=== PATIENT | male | born 1960 | race Caucasian/White ===

== ENCOUNTER 2020-01-23 07:16 | Day surgery (SDC) | payer OTHER ==
[~2020-01-23 07:16] MED LIST: Lactated Ringers 1,000 ML IV SCH
[2020-01-23] MEDS ORDERED: Lidocaine 2% 5 ML SDV ONE (07:24)
[2020-01-23] MEDS ORDERED: fentaNYL 100 MCG/2 ML SDV ONE (07:25)
[2020-01-23] MEDS ORDERED: Midazolam 1 MG/ML 2 ML SDV ONE (07:25)
[2020-01-23] MEDS ORDERED: Propofol 200 MG/20 ML SDV ONE (07:25)
[2020-01-23] MEDS ORDERED: Ketamine 500 mg/10 ML MDV ONE (07:29)
--- NOTE | 2020-01-23 07:55 | PCM.PREANE ---
Preanesthetic Assessment - Anesthesia/Transfusion/Family Hx Anesthesia History: Prior Anesthesia Without Reaction Family History of Anesthesia Reaction: No Transfusion History: No Prior Transfusion(s) Intubation History: Unknown - Review of Systems General: No Symptoms Pulmonary: No Symptoms Cardiovascular: No Symptoms Gastrointestinal: No Symptoms, Other (F/H of colon cancer) Neurological: No Symptoms Other: Reports: None - Physical Assessment NPO Status Date: 01/23/20 NPO Status Time: 06:00 Vital Signs: Last Vital Signs Temp 36.9 C 01/23/20 07:34 Pulse 87 01/23/20 07:34 Resp 16 01/23/20 07:34 BP 130/89 01/23/20 07:34 Pulse Ox 99 01/23/20 07:34 Height: 5 ft 9 in Weight: 79.379 kg ASA Class: 3 Mental Status: Alert & Oriented x3 Airway Class: Mallampati = 2 Dentition: Reports: Partial (upper and lower left and right), Broken Tooth/ Teeth (multiple) Thyro-Mental Finger Breadths: 3 Mouth Opening Finger Breadths: 3 ROM/Head Extension: Full Lungs: Clear to Auscultation, Normal Respiratory Effort Cardiovascular: Regular Rate, Regular Rhythm - Allergies Allergies/Adverse Reactions: Allergies Allergy/AdvReac Type Severity Reaction Status Date / Time No Known Allergies Allergy Verified 01/19/20 15:15 - Blood Blood Available: No - Anesthesia Plan Pre-Op Medication Ordered: None - Acknowledgements Anesthesia Type Planned: MAC Pt an Appropriate Candidate for the Planned Anesthesia: Yes Alternatives and Risks of Anesthesia Discussed w Pt/Guardian: Yes Pt/Guardian Understands and Agrees with Anesthesia Plan: Yes PreAnesthesia Questionnaire HEENT History: Reports: Other (See Below) Other HEENT History: wears glasses, has upper partial removable denture- he doesn't usually wear it Musculoskeletal History: Reports: Fracture Other Musculoskeletal History: hx of fx arm- casted Neurological History: Reports: Other (See Below) Other Neuro History: 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, ataxia - walks with peterson Psychiatric History: Reports: Anxiety, Other (See Below) Other Psychiatric History: some cognitive impairment Endocrine/Metabolic History: Reports: Hypothyroidism - Infectious Disease History Infectious Disease History: Reports: Chicken Pox - Past Surgical History Head Surgeries/Procedures: Reports: None HEENT Surgical History: Reports: Eye Surgery Other HEENT Surgeries/Procedures: Eye surgery x5 as a child- last was at age 12 - SUBSTANCE USE Smoking Status *Q: Current Every Day Smoker (> 1ppd) Tobacco Use Within Last Twelve Months: Cigarettes Recreational Drug Use History: No - HOME MEDS Home Medications: Home Meds Carbidopa/Levodopa [Carbidopa-Levodopa 25-100 Tab] 2 tab PO BID 01/19/20 [ History] Cholecalciferol (Vitamin D3) [Vitamin D3] 400 unit PO DAILY 01/19/20 [History] Cyanocobalamin (Vitamin B12) [Vitamin B12] 1,000 mcg PO DAILY 01/19/20 [History] Levothyroxine Sodium [Synthroid] 25 mcg PO DAILY 01/19/20 [History] - CURRENT (IN HOUSE) MEDS Current Meds: Current Medications Lactated Ringer's (Ringers, Lactated) 1,000 mls @ 125 mls/hr IV ASDIRECTED DEANNA Discontinued Medications Fentanyl (Sublimaze) Confirm Administered Dose 100 mcg .ROUTE .STK-MED ONE Stop: 01/23/20 07:26 Ketamine HCl (Ketalar) Confirm Administered Dose 500 mg .ROUTE .STK-MED ONE Stop: 01/23/20 07:30 Lidocaine (Xylocaine-Mpf 2%) Confirm Administered Dose 5 ml .ROUTE .STK-MED ONE Stop: 01/23/20 07:25 Midazolam HCl (Versed 1 Mg/Ml) Confirm Administered Dose 2 mg .ROUTE .STK-MED ONE Stop: 01/23/20 07:26 Propofol (Diprivan 20 Ml) Confirm Administered Dose 200 mg .ROUTE .STK-MED ONE Stop: 01/23/20 07:26
--- NOTE | 2020-01-23 09:38 | PCM.OPNOTE ---
- General Post-Op/Procedure Note Date of Surgery/Procedure: 01/23/20 Operative Procedure(s): egd w bx. colonoscopy Findings: see [id number] Pre Op Diagnosis: change in bowel habit and gerd Post-Op Diagnosis: Same Anesthesia Technique: Moderate Sedation Primary Surgeon: Khoa Rodriguez Pathology: sent Complications: None Condition: Good
--- NOTE | 2020-01-23 10:01 | PCM.POSTAN ---
POST ANESTHESIA ASSESSMENT - MENTAL STATUS Mental Status: Alert, Oriented - VITAL SIGNS Vital Signs: Last Vital Signs Temp 36.9 C 01/23/20 07:34 Pulse 67 01/23/20 09:52 Resp 20 01/23/20 09:52 BP 99/63 01/23/20 09:52 Pulse Ox 99 01/23/20 09:52 - RESPIRATORY Respiratory Status: Respiratory Rate WNL, Airway Patent, O2 Saturation Stable - CARDIOVASCULAR CV Status: Pulse Rate WNL, Blood Pressure Stable - GASTROINTESTINAL GI Status: No Symptoms - PAIN Pain Score: 0 - POST OP HYDRATION Hydration Status: Adequate & Stable - OBSERVATIONS Free Text/Narrative:: No anesthesia problems
[2020-01-23 10:16] VITALS: BP 121/71; PULSE 73
--- NOTE | 2020-01-23 10:27 | PCM48HPAN ---
Post Anesthesia Note - EVALUATION WITHIN 48HRS OF ANESTHETIC Vital Signs in Normal Range: Yes Patient Participated in Evaluation: Yes Respiratory Function Stable: Yes Airway Patent: Yes Cardiovascular Function Stable: Yes Hydration Status Stable: Yes Pain Control Satisfactory: Yes Nausea and Vomiting Control Satisfactory: Yes Mental Status Recovered: Yes Vital Signs: Last Vital Signs Temp 36.7 C 01/23/20 10:03 Pulse 73 01/23/20 10:15 Resp 14 01/23/20 10:15 BP 121/71 01/23/20 10:15 Pulse Ox 100 01/23/20 10:15 - COMMENTS/OBSERVATIONS Free Text/Narrative:: no anesthesia problems
--- NOTE | 2020-01-23 12:14 | OR ---
SURGEON: Khoa Rodriguez MD DATE OF PROCEDURE: 01/23/2020 PREOPERATIVE DIAGNOSES: Positive family history and change in bowel habit. POSTOPERATIVE DIAGNOSES: Positive family history and change in bowel habit. PROCEDURE PERFORMED: Esophagogastroduodenoscopy with biopsy and colonoscopy. DESCRIPTION OF PROCEDURE: EGD: The patient was taken to the endoscopy room, and with the SPANISH SPEAKING NANNY, Diprivan was administered. A well-lubricated EGD scope was gently inserted through the oropharynx, down the esophagus, passing through the gastroesophageal junction, into the stomach. The mucosa was examined upon the passage. Any etiology will be noted. Once in the stomach, we continued to advance to the distal antrum, passed through the pylorus into the second portion of the duodenum. Again, the mucosa was examined for any abnormality and etiology. The scope was then retrieved back to the stomach and then retroflexed to look at the fundus of the stomach. If a biopsy was indicated, we will biopsy the antrum, body, and gastroesophageal junction. The air will be sucked out while the scope is retrieved to reduce the patient's discomfort. The patient tolerated the procedure well. There were no intraoperative complications. Dr. Rodriguez was present through the whole procedure. Prior to surgery, a time-out had been called, the patient identified, procedure identified and antibiotic administered. The patient was taken to the endoscopy room. A time out was called, patient identified, and procedure identified. Diprivan was then administrated. Patient went from awake to sleep, hearing doctor talking or door closing is normal. Perineum inspection and digital examination were then performed. A well- lubricated colonoscope was gently inserted through the rectum, advanced past the rectosigmoid junction, the descending colon, splenic flexure, transverse colon, hepatic flexure, ascending colon, arrived to the cecum. Cecum was identified as dictated in the finding. Then the scope was carefully withdrawn while attention was paid to the mucosal surface for any abnormality. Air will be sucked out during the scope withdrawal. At the rectum, retroflexed to examine any rectal diseases, fistula or hemorrhoids. Patient tolerated procedure well. There were no intraoperative complications, and Dr. Rodriguez was present throughout the whole procedure. FINDINGS: EGD findings: 1. The patient is easily sedated with SPANISH SPEAKING NANNY and Diprivan, the patient is soundly snoring. 2. Oropharynx and proximal esophagus are free of disease and distal esophagus at GE junction has only very minimal salmon-colored change, suggests minimal acid reflux. Stomach rugae are normal in appearance. There is some bile in the stomach, and antrum looks fine. The exit to the duodenum is narrowed, but the wall is smooth. Grossly looks normal, does not seem to show any disease, but the camera cannot go through it, so the pylorus exit to the duodenum is probably smaller than 10 mm. We can only see the duodenum at a distance. Retroflexed look at the fundus of stomach, there is no hiatal hernia. Biopsy done at antrum, body, GE junction at 40 and sucked out the gas while scope pulling out. During the whole study, there is bile in the stomach, but no ulcer, blood, or food particle. Colonoscopy findings: 1. The patient easily sedated with SPANISH SPEAKING NANNY and Diprivan, the patient is soundly snoring. 2. Bowel prep is average to above average, lots of bubble, but there is no semi-formed stool. Liquid stool, very little. We had to use Mylicon to get rid of the bubble. Colon rather straightforward. Cecum indicated by ileocecal fold, one-to-one indentation, appendiceal orifice. ScopeGuide is pointing south. Light emittance is not observed. Mucosa examined upon scope pulling out. The patient has mild diverticulosis, very mild, about 5 to 10 of them on the left colon. No signs or symptoms of diverticulitis. No polyp, mass, growth, inflammation, stricture, ulceration, AV malformation, bleeding, none of those. The patient has mild external hemorrhoids, mild internal hemorrhoids. The patient would benefit from repeat colonoscopy 3 to 5 years from today because of family history. ROLAN / ROJELIO /[id number]
== END 2020-01-23 10:42 | disposition home or self-care (01) ==
LOC: MW.SDS 07:16
PROVIDERS: ATTEND Surgery
DX: K57.30 Diverticulosis of large intestine without perforation or abscess without bleeding (principal); K29.50 Unspecified chronic gastritis without bleeding; B96.81 Helicobacter pylori [H. pylori] as the cause of diseases classified elsewhere; K64.4 Residual hemorrhoidal skin tags; K64.8 Other hemorrhoids; E03.9 Hypothyroidism, unspecified; Z80.0 Family history of malignant neoplasm of digestive organs
CPT/HCPCS: 43239; 45378; J2001; J2250; J2704; J3010; J7120; 00813; 88305; 88312

== ENCOUNTER 2021-05-10 12:06 | Inpatient (IN) | payer OTHER ==
--- NOTE | 2021-05-10 12:25 | PCM.EKG ---
#1 Interpretation EKG Date: 05/10/21 Time: 12:17 Rhythm: NSR Rate (Beats/Min): 76 ST-T: Depressed
--- NOTE | 2021-05-10 12:33 | EDM.PDOC ---
ED HPI GENERAL MEDICAL PROBLEM - General Chief Complaint: Head Injury Stated Complaint: FOUND ON FLOOR UNRESPONSIVE Time Seen by Provider: 05/10/21 12:20 Source of Information: Reports: EMS Notes Reviewed History Limitations: Reports: Altered Mental Status - History of Present Illness INITIAL COMMENTS - FREE TEXT/NARRATIVE: 61-year-old male who lives at home alone but does have someone bring her medications daily. The caregiver who presents with medication found patient on the ground. He was last seen 24 hours ago unknown how long patient was down. Patient normally at baseline is able to speak and talk but here he said his name is not following commands. Patient has abrasion to the right elbow. He does not move his lower extremities or withdraw the pain or squeeze hands on command. Pupils are unreactive as well. The patient does withdrawal at times. Will try to obtain further information and obtain imaging for patient. - Related Data Allergies Allergy/AdvReac Type Severity Reaction Status Date / Time No Known Allergies Allergy Verified 01/19/20 15:15 Home Meds: Home Meds Cholecalciferol (Vitamin D3) [Vitamin D3] 400 unit PO DAILY 01/19/20 [History] Cyanocobalamin (Vitamin B12) [Vitamin B12] 1,000 mcg PO DAILY 01/19/20 [History] Levothyroxine Sodium [Synthroid] 50 mcg PO DAILY 01/19/20 [History] Past Medical History HEENT History: Reports: Other (See Below) Other HEENT History: wears glasses, has upper partial removable denture- he doesn't usually wear it Musculoskeletal History: Reports: Fracture Other Musculoskeletal History: hx of fx arm- casted Neurological History: Reports: Other (See Below) Other Neuro History: 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, ataxia- walks with peterson Psychiatric History: Reports: Anxiety, Other (See Below) Other Psychiatric History: some cognitive impairment Endocrine/Metabolic History: Reports: Hypothyroidism - Infectious Disease History Infectious Disease History: Reports: Chicken Pox - Past Surgical History Head Surgeries/Procedures: Reports: None HEENT Surgical History: Reports: Eye Surgery Other HEENT Surgeries/Procedures: Eye surgery x5 as a child- last was at age 12 Social & Family History - Family History Family Medical History: No Pertinent Family History ED ROS GENERAL - Review of Systems Review Of Systems: Unable To Obtain Reason Not Obtained: AMS - Physical Exam Exam: See Below Exam Limited By: Altered Mental Status General Appearance: Obtunded Eye Exam: Bilateral Eye: EOMI Head Exam: Atraumatic, Normocephalic Respiratory/Chest: No Respiratory Distress, Lungs Clear, Normal Breath Sounds Cardiovascular: Normal Peripheral Pulses, Regular Rate, Rhythm GI/Abdominal: Normal Bowel Sounds, Soft, Non-Tender Neuro Exam (Abbreviated): Inattentive, Slow to Respond, Other (Not moving extremities withdraw to pain) Course - Vital Signs Last Recorded V/S: Last Vital Signs Temp 97.0 F 05/10/21 18:27 Pulse 90 05/10/21 18:27 Resp 18 05/10/21 18:27 BP 175/98 H 05/10/21 18:27 Pulse Ox 96 05/10/21 18:27 - Orders/Labs/Meds Orders: Active Orders 24 hr Category Date Time Status CELL COUNT,CSF [BF] Stat Lab 05/10/21 14:46 Ordered CSF CULTURE [MREF] Stat Lab 05/10/21 14:46 Ordered GLUCOSE,CSF [BF] Stat Lab 05/10/21 14:46 Ordered LACTATE SEPSIS W/ REFLEX [CHEM] Stat Lab 05/10/21 12:29 Ordered PROTEIN,CSF [BF] Stat Lab 05/10/21 14:46 Ordered Medication Orders Albuterol/Ipratropium (Albuterol/Ipratropium 3.0-0.5 Mg/3 Ml Neb Soln) 3 ml NEB Q4HRRT PRN PRN Reason: Shortness Of Breath/wheezing Heparin Sodium (Porcine) (Heparin Sodium 5,000 Units/Ml Vial) 5,000 units SUBCUT Q8H DEANNA Ampicillin Sodium 2 gm/ Sodium (Chloride) 100 mls @ 200 mls/hr IV Q6H DEANNA Vancomycin HCl 2 gm/ Premix 400 mls @ 200 mls/hr IV STAT ONE Stop: 05/10/21 19:07 Lactated Ringer's (Ringers, Lactated) 1,000 mls @ 125 mls/hr IV ASDIRECTED DEANNA Pantoprazole Sodium 40 mg/ (Sodium Chloride) 10 mls @ 200 mls/hr IV DAILY DEANNA Ondansetron HCl (Ondansetron 4 Mg/2 Ml Sdv) 4 mg IVPUSH Q4H PRN PRN Reason: Nausea/Vomiting Labs: Laboratory Tests 07/06/21 07/06/21 07/06/21 Range/Units 12:25 12:25 12:25 WBC 17.08 H (4.0-11.0) K/uL RBC 4.47 L (4.50-5.90) M/uL Hgb 14.3 (13.0-17.0) g/dL Hct 41.7 (38.0-50.0) % MCV 93.3 (80.0-98.0) fL MCH 32.0 (27.0-32.0) pg MCHC 34.3 (31.0-37.0) g/dL RDW Std Deviation 44.1 (28.0-62.0) fl RDW Coeff of Ananda 13 (11.0-15.0) % Plt Count 221 (150-400) K/uL MPV 11.70 (7.40-12.00) fL Neut % (Auto) 87.5 H (48.0-80.0) % Lymph % (Auto) 5.4 L (16.0-40.0) % [place] % (Auto) 7.0 (0.0-15.0) % Eos % (Auto) 0.0 (0.0-7.0) % Baso % (Auto) 0.1 (0.0-1.5) % Neut # (Auto) 15.0 H (1.4-5.7) K/uL Lymph # (Auto) 0.9 (0.6-2.4) K/uL [place] # (Auto) 1.2 H (0.0-0.8) K/uL Eos # (Auto) 0.0 (0.0-0.7) K/uL Baso # (Auto) 0.0 (0.0-0.1) K/uL Nucleated RBC % 0.0 /100WBC Nucleated RBCs # 0 K/uL INR 0.95 Sodium 138 (136-148) mmol/L Potassium 5.3 H (3.5-5.1) mmol/L Chloride 102 (98-107) mmol/L Carbon Dioxide 29.8 (21.0-32.0) mmol/L BUN 11 (7.0-18.0) mg/dL Creatinine 1.2 (0.8-1.3) mg/dL Est Cr Clr Drug Dosing 63.83 mL/min Estimated GFR (MDRD) > 60.0 ml/min Glucose 127 H (74-106) mg/dL Calcium 9.1 (8.5-10.1) mg/dL Phosphorus 5.1 H (2.6-4.7) mg/dL Magnesium 2.2 (1.8-2.4) mg/dL Total Bilirubin 2.0 H (0.2-1.0) mg/dL AST 81 H (15-37) IU/L ALT 39 (14-63) IU/L Alkaline Phosphatase 100 (46-116) U/L Ammonia (19-54) ug/dL Creatine Kinase 2697 H (26-308) U/L Total Protein 7.5 (6.4-8.2) g/dL Albumin 3.7 (3.4-5.0) g/dL Globulin 3.8 (2.6-4.0) g/dL Albumin/Globulin Ratio 1.0 (0.9-1.6) Urine Color Urine Appearance Urine pH (5.0-8.0) Ur Specific [place] (1.001-1.035) Urine Protein (NEGATIVE) mg/dL Urine Glucose (UA) (NEGATIVE) mg/dL Urine Ketones (NEGATIVE) mg/dL Urine Occult Blood (NEGATIVE) Urine Nitrite (NEGATIVE) Urine Bilirubin (NEGATIVE) Urine Urobilinogen (<2.0) EU/dL Ur Leukocyte Esterase (NEGATIVE) Urine RBC (0-2/HPF) Urine WBC (0-5/HPF) Ur Epithelial Cells (NONE-FEW) Amorphous Sediment (NEGATIVE) Urine Bacteria (NEGATIVE) Urine Mucus (NONE-MOD) Urine Opiates Screen (NEGATIVE) Ur Oxycodone Screen (NEGATIVE) Urine Methadone Screen (NEGATIVE) Ur Barbiturates Screen (NEGATIVE) Ur Phencyclidine Scrn (NEGATIVE) Ur Amphetamine Screen (NEGATIVE) U Methamphetamines Scrn (NEGATIVE) U Benzodiazepines Scrn (NEGATIVE) U Cocaine Metab Screen (NEGATIVE) U Marijuana (THC) Screen (NEGATIVE) Ethyl Alcohol < 3.0 mg/dL SARS-CoV-2 RNA (MICHELLE) (NEGATIVE) 05/10/21 05/10/21 05/10/21 Range/Units 14:18 14:49 14:49 WBC (4.0-11.0) K/uL RBC (4.50-5.90) M/uL Hgb (13.0-17.0) g/dL Hct (38.0-50.0) % MCV (80.0-98.0) fL MCH (27.0-32.0) pg MCHC (31.0-37.0) g/dL RDW Std Deviation (28.0-62.0) fl RDW Coeff of Ananda (11.0-15.0) % Plt Count (150-400) K/uL MPV (7.40-12.00) fL Neut % (Auto) (48.0-80.0) % Lymph % (Auto) (16.0-40.0) % [place] % (Auto) (0.0-15.0) % Eos % (Auto) (0.0-7.0) % Baso % (Auto) (0.0-1.5) % Neut # (Auto) (1.4-5.7) K/uL Lymph # (Auto) (0.6-2.4) K/uL [place] # (Auto) (0.0-0.8) K/uL Eos # (Auto) (0.0-0.7) K/uL Baso # (Auto) (0.0-0.1) K/uL Nucleated RBC % /100WBC Nucleated RBCs # K/uL INR Sodium (136-148) mmol/L Potassium (3.5-5.1) mmol/L Chloride (98-107) mmol/L Carbon Dioxide (21.0-32.0) mmol/L BUN (7.0-18.0) mg/dL Creatinine (0.8-1.3) mg/dL Est Cr Clr Drug Dosing mL/min Estimated GFR (MDRD) ml/min Glucose (74-106) mg/dL Calcium (8.5-10.1) mg/dL Phosphorus (2.6-4.7) mg/dL Magnesium (1.8-2.4) mg/dL Total Bilirubin (0.2-1.0) mg/dL AST (15-37) IU/L ALT (14-63) IU/L Alkaline Phosphatase (46-116) U/L Ammonia 24 (19-54) ug/dL Creatine Kinase (26-308) U/L Total Protein (6.4-8.2) g/dL Albumin (3.4-5.0) g/dL Globulin (2.6-4.0) g/dL Albumin/Globulin Ratio (0.9-1.6) Urine Color YELLOW Urine Appearance CLEAR Urine pH 6.0 (5.0-8.0) Ur Specific [place] >= 1.030 (1.001-1.035) Urine Protein NEGATIVE (NEGATIVE) mg/dL Urine Glucose (UA) NEGATIVE (NEGATIVE) mg/dL Urine Ketones NEGATIVE (NEGATIVE) mg/dL Urine Occult Blood TRACE-INTACT H (NEGATIVE) Urine Nitrite NEGATIVE (NEGATIVE) Urine Bilirubin NEGATIVE (NEGATIVE) Urine Urobilinogen 0.2 (<2.0) EU/dL Ur Leukocyte Esterase NEGATIVE (NEGATIVE) Urine RBC 0-1 (0-2/HPF) Urine WBC 0-1 (0-5/HPF) Ur Epithelial Cells RARE (NONE-FEW) Amorphous Sediment MODERATE (NEGATIVE) Urine Bacteria RARE (NEGATIVE) Urine Mucus RARE (NONE-MOD) Urine Opiates Screen NEGATIVE (NEGATIVE) Ur Oxycodone Screen NEGATIVE (NEGATIVE) Urine Methadone Screen NEGATIVE (NEGATIVE) Ur Barbiturates Screen NEGATIVE (NEGATIVE) Ur Phencyclidine Scrn NEGATIVE (NEGATIVE) Ur Amphetamine Screen NEGATIVE (NEGATIVE) U Methamphetamines Scrn NEGATIVE (NEGATIVE) U Benzodiazepines Scrn NEGATIVE (NEGATIVE) U Cocaine Metab Screen NEGATIVE (NEGATIVE) U Marijuana (THC) Screen NEGATIVE (NEGATIVE) Ethyl Alcohol mg/dL SARS-CoV-2 RNA (MICHELLE) (NEGATIVE) 05/10/21 05/10/21 Range/Units 14:52 16:32 WBC (4.0-11.0) K/uL RBC (4.50-5.90) M/uL Hgb (13.0-17.0) g/dL Hct (38.0-50.0) % MCV (80.0-98.0) fL MCH (27.0-32.0) pg MCHC (31.0-37.0) g/dL RDW Std Deviation (28.0-62.0) fl RDW Coeff of Ananda (11.0-15.0) % Plt Count (150-400) K/uL MPV (7.40-12.00) fL Neut % (Auto) (48.0-80.0) % Lymph % (Auto) (16.0-40.0) % [place] % (Auto) (0.0-15.0) % Eos % (Auto) (0.0-7.0) % Baso % (Auto) (0.0-1.5) % Neut # (Auto) (1.4-5.7) K/uL Lymph # (Auto) (0.6-2.4) K/uL [place] # (Auto) (0.0-0.8) K/uL Eos # (Auto) (0.0-0.7) K/uL Baso # (Auto) (0.0-0.1) K/uL Nucleated RBC % /100WBC Nucleated RBCs # K/uL INR Sodium (136-148) mmol/L Potassium (3.5-5.1) mmol/L Chloride (98-107) mmol/L Carbon Dioxide (21.0-32.0) mmol/L BUN (7.0-18.0) mg/dL Creatinine (0.8-1.3) mg/dL Est Cr Clr Drug Dosing mL/min Estimated GFR (MDRD) ml/min Glucose (74-106) mg/dL Calcium (8.5-10.1) mg/dL Phosphorus (2.6-4.7) mg/dL Magnesium (1.8-2.4) mg/dL Total Bilirubin (0.2-1.0) mg/dL AST (15-37) IU/L ALT (14-63) IU/L Alkaline Phosphatase (46-116) U/L Ammonia (19-54) ug/dL Creatine Kinase (26-308) U/L Total Protein (6.4-8.2) g/dL Albumin (3.4-5.0) g/dL Globulin (2.6-4.0) g/dL Albumin/Globulin Ratio (0.9-1.6) Urine Color YELLOW Urine Appearance SLT CLOUDY Urine pH 6.0 (5.0-8.0) Ur Specific [place] >= 1.030 (1.001-1.035) Urine Protein NEGATIVE (NEGATIVE) mg/dL Urine Glucose (UA) NEGATIVE (NEGATIVE) mg/dL Urine Ketones NEGATIVE (NEGATIVE) mg/dL Urine Occult Blood MODERATE H (NEGATIVE) Urine Nitrite NEGATIVE (NEGATIVE) Urine Bilirubin NEGATIVE (NEGATIVE) Urine Urobilinogen 1.0 (<2.0) EU/dL Ur Leukocyte Esterase NEGATIVE (NEGATIVE) Urine RBC 0-1 (0-2/HPF) Urine WBC 0-1 (0-5/HPF) Ur Epithelial Cells RARE (NONE-FEW) Amorphous Sediment MODERATE (NEGATIVE) Urine Bacteria FEW (NEGATIVE) Urine Mucus RARE (NONE-MOD) Urine Opiates Screen (NEGATIVE) Ur Oxycodone Screen (NEGATIVE) Urine Methadone Screen (NEGATIVE) Ur Barbiturates Screen (NEGATIVE) Ur Phencyclidine Scrn (NEGATIVE) Ur Amphetamine Screen (NEGATIVE) U Methamphetamines Scrn (NEGATIVE) U Benzodiazepines Scrn (NEGATIVE) U Cocaine Metab Screen (NEGATIVE) U Marijuana (THC) Screen (NEGATIVE) Ethyl Alcohol mg/dL SARS-CoV-2 RNA (MICHELLE) NEGATIVE (NEGATIVE) Meds: Medications Generic Name Dose Route Start Last Admin Trade Name Freq PRN Reason Stop Dose Admin Albuterol/Ipratropium 3 ml 05/10/21 18:24 Albuterol/Ipratropium 3.0-0.5 Mg/3 Ml Neb Soln NEB Q4HRRT PRN Shortness Of Breath/wheezing Heparin Sodium (Porcine) 5,000 units 05/10/21 18:30 Heparin Sodium 5,000 Units/Ml Vial SUBCUT Q8H [facility] Ampicillin Sodium 2 gm/ Sodium 100 mls @ 200 mls/hr 05/10/21 17:15 Chloride IV Q6H DEANNA Vancomycin HCl 2 gm/ Premix 400 mls @ 200 mls/hr 05/10/21 17:08 IV 05/10/21 19:07 STAT ONE Lactated Ringer's 1,000 mls @ 125 mls/hr 05/10/21 18:30 Ringers, Lactated IV ASDIRECTED [facility] Pantoprazole Sodium 40 mg/ 10 mls @ 200 mls/hr 05/10/21 18:45 Sodium Chloride IV DAILY DEANNA Ondansetron HCl 4 mg 05/10/21 18:24 Ondansetron 4 Mg/2 Ml Sdv IVPUSH Q4H PRN Nausea/Vomiting Discontinued Medications Generic Name Dose Route Start Last Admin Trade Name Freq PRN Reason Stop Dose Admin Ceftriaxone Sodium 2 gm 05/10/21 17:08 05/10/21 17:53 Ceftriaxone 1 Gm Vial IVPUSH 05/10/21 17:09 2 gm ONETIME ONE Administration Sodium Chloride 1,000 mls @ 999 mls/hr 05/10/21 13:51 05/10/21 14:33 Normal Saline IV 05/10/21 14:51 999 mls/hr .BOLUS ONE Administration Sodium Chloride 1,000 mls @ 999 mls/hr 05/10/21 17:14 05/10/21 17:49 Normal Saline IV 05/10/21 18:14 999 mls/hr .BOLUS ONE Administration Lidocaine HCl 5 ml 05/10/21 14:50 05/10/21 17:45 Lidocaine 1% 5 Ml Sdv INJECT 05/10/21 14:51 Not Given ONETIME ONE Pantoprazole Sodium 40 mg 05/10/21 18:30 Pantoprazole 40 Mg Vial IV DAILY DEANNA Pantoprazole Sodium 40 mg 05/10/21 18:30 Pantoprazole 40 Mg Vial IVPUSH DAILY DEANNA Departure - Departure Time of Disposition: 14:00 Disposition: Admitted As Inpatient 65 Condition: Good Clinical Impression: Altered mental status - Discharge Information *PRESCRIPTION DRUG MONITORING PROGRAM REVIEWED*: Not Applicable *COPY OF PRESCRIPTION DRUG MONITORING REPORT IN PATIENT FRANKIE: Not Applicable Sepsis Event Note (ED) - Focused Exam Vital Signs: Vital Signs Temp Pulse Resp BP Pulse Ox 05/10/21 16:19 152/85 H 05/10/21 15:49 149/95 H 05/10/21 15:19 164/86 H 05/10/21 14:49 166/91 H 96 05/10/21 13:49 155/93 H 05/10/21 13:18 72 144/85 H 94 L 05/10/21 12:29 77 145/87 H 95 05/10/21 12:19 77 138/61 97 05/10/21 12:17 98.8 F 76 18 138/61 96 - My Orders Last 24 Hours: My Active Orders 05/10/21 12:29 LACTATE SEPSIS W/ REFLEX [CHEM] Stat 05/10/21 14:46 CELL COUNT,CSF [BF] Stat CSF CULTURE [MREF] Stat GLUCOSE,CSF [BF] Stat PROTEIN,CSF [BF] Stat - Assessment/Plan Last 24 Hours: My Active Orders 05/10/21 12:29 LACTATE SEPSIS W/ REFLEX [CHEM] Stat 05/10/21 14:46 CELL COUNT,CSF [BF] Stat CSF CULTURE [MREF] Stat GLUCOSE,CSF [BF] Stat PROTEIN,CSF [BF] Stat Plan: Patient is a 61-year-old male presents today for being found on the ground for unknown time. Will obtain a CT scan of his spine abdomen pelvis and reassess. ED LUMBAR PUNCTURE - Lumbar Puncture Indication: Mental Status Change Consent Obtained: Guardian Position: Left Prep: Sterile Drapes, Betadine Local Anesthesia - Lidocaine (Xylocaine): 1% Plain Local Anesthetic Volume: 3cc Vertebral Interspace: L4/L5 Spinal Needle With Stylet: 20ga, 3.5 Inch (Adult) Number of Attempts: Other: (Successful) Complications: Yes Complication Description: We were unsuccessful in obtaining the lumbar puncture
[2021-05-10 13:10] LABS: BLOOD UREA NITROGEN,BUN 11 mg/dL (7.0-18.0); CARBON DIOXIDE,CO2 29.8 mmol/L (21.0-32.0); CHLORIDE,CL 102 mmol/L (98-107); GLUCOSE RANDOM 127 mg/dL (74-106); POTASSIUM,K 5.3 mmol/L (3.5-5.1); SODIUM,NA 138 mmol/L (136-148)
--- NOTE | 2021-05-10 13:38 | CT ---
INDICATION: Unwitnessed fall TECHNIQUE: CT abdomen and pelvis without contrast. COMPARISON: None FINDINGS: Lower chest: Unremarkable. Liver: Unremarkable. Spleen: Unremarkable. Pancreas: Unremarkable. Gallbladder and bile ducts: Unremarkable. Adrenal glands: Unremarkable. Kidneys: Nonobstructive left nephrolithiasis. GI tract: Unremarkable. Appendix is normal. Vascular structures: Unremarkable. Lymph nodes: Unremarkable. Miscellaneous: Small fat containing bilateral inguinal hernias. No free air or significant free fluid. Pelvic Organs: Unremarkable. Bones: Old T12 and L3 fractures. IMPRESSION: No evidence for acute injury within the abdomen or pelvis. Nonobstructive left nephrolithiasis. Old T12 and L3 fractures. Please note that all CT scans at this facility use dose modulation, iterative reconstruction, and/or weight-based dosing when appropriate to reduce radiation dose to as low as reasonably achievable. Dictated by Jerrica Olvera MD @ 05/10/2021 1:37:[address] Jerrica Olvera @ May 10 2021 1:37PM
--- NOTE | 2021-05-10 13:42 | CT ---
INDICATION: Unwitnessed fall. TECHNIQUE: CT head without contrast. COMPARISON: None. FINDINGS: CSF spaces: Within normal limits for age. Brain parenchyma and extra-axial spaces: Moderate bifrontal atrophy. The gibbons-white differentiation is normal. No sign of mass, hemorrhage, or midline shift. No extra-axial fluid collection. Skull base and calvarium: The visualized paranasal sinuses and mastoid air cells demonstrate no acute or significant findings. The visualized orbits are grossly unremarkable. No skull fractures. IMPRESSION: No sign of acute injury. Bifrontal atrophy is present. Please note that all CT scans at this facility use dose modulation, iterative reconstruction, and/or weight-based dosing when appropriate to reduce radiation dose to as low as reasonably achievable. Dictated by Juan Simmons MD @ 05/10/2021 1:40:[address] Juan Simmons @ May 10 2021 1:40PM
--- NOTE | 2021-05-10 13:42 | CT ---
INDICATION: Unwitnessed fall TECHNIQUE: CT chest without contrast. COMPARISON: None FINDINGS: Cardiovascular structures: Heart size is normal. Coronary artery calcifications. Dilatation of the ascending aorta measuring 4.1 cm. Mediastinum and walker: No sign of mass or adenopathy. Lungs: Clear. Pleura and pericardium: No effusions. Chest wall and axilla: No mass or adenopathy. Upper abdomen: Unremarkable. Bones: Old T12 fracture. Old mid sternal body fracture. IMPRESSION: No acute intrathoracic abnormality. Dilatation of the ascending aorta measuring 4.1 cm. Coronary artery calcifications. Old T12 and sternal body fractures. Please note that all CT scans at this facility use dose modulation, iterative reconstruction, and/or weight-based dosing when appropriate to reduce radiation dose to as low as reasonably achievable. Dictated by Jerrica Olvera MD @ 05/10/2021 1:41:[address] Jerrica Olvera @ May 10 2021 1:41PM
--- NOTE | 2021-05-10 13:45 | CT ---
INDICATION: Unwitnessed fall. TECHNIQUE: CT cervical spine without contrast. COMPARISON: None FINDINGS: Vertebrae: Alignment is normal. There are no fractures or suspicious bony lesions. Discs and facet joints: There are degenerative disc changes most severe at C5-6 and C6-7. There are multilevel degenerative changes in the facets. Extraspinal findings: Paraspinous soft tissues are unremarkable. IMPRESSION: 1. No sign of acute injury. 2. Multilevel degenerative spondylosis. Please note that all CT scans at this facility use dose modulation, iterative reconstruction, and/or weight-based dosing when appropriate to reduce radiation dose to as low as reasonably achievable. Dictated by Juan Simmons MD @ 05/10/2021 1:43:[address] Juan Simmons @ May 10 2021 1:43PM
[2021-05-10] MEDS ORDERED: Sodium Chloride 0.9% 1,000 ML IV ONE ×2 (13:51→17:14)
[2021-05-10] MEDS ORDERED: VANCOmycin 2 GM/400 ML 2 GM in Premix Bag 1 BAG IV ONE (17:08)
[2021-05-10] MEDS ORDERED: cefTRIAXone 1 GM Vial IVPUSH ONE (17:08)
[2021-05-10] MEDS ORDERED: Ampicillin 2 GM in Sodium Chloride 0.9% 100 ML IV SCH (17:15)
[2021-05-10] MEDS ORDERED: Albuterol/Ipratropium 3.0-0.5 MG/3 ML Neb Soln NEB PRN (18:24)
[2021-05-10] MEDS ORDERED: Ondansetron 4 MG/2 ML SDV IVPUSH PRN (18:24)
[2021-05-10] MEDS ORDERED: Pantoprazole 40 MG Vial IVPUSH SCH (18:30)
[2021-05-10] MEDS ORDERED: Pantoprazole 40 MG Vial IV SCH (18:30)
--- NOTE | 2021-05-10 19:01 | PCM.HP.2 ---
H&P History of Present Illness - General Date of Service: 05/10/21 Admit Problem/Dx: Admission Diagnosis/Problem Admission Diagnosis/Problem Mental deterioration - History of Present Illness Initial Comments - Free Text/Narative: Patient is a 61-year-old male with past medical history of ataxia, cognitive impairment, dysarthria, hypothyroidism, neurodegenerative disorder who was at home alone, was found down on the ground by his municipal maintenance worker. Its unsure for how long patient was on the ground. The municipal maintenance worker who came to visit the patient with his daily medication found the patient laying down on the floor. He had abrasion to the right elbow. Patient was brought to the ER by EMS services. In the ER patient was found to be altered, unable to follow most commands, he was moving all his extremities and was withdrawing to pain and follow some commands such as squeezing hands. As per ER, the palliative care specialist told the ER physician that at baseline patient is able to talk normally and follows commands. The work-up revealed that patient had leukocytosis but no definite source of infection was recognized upon CT scan of the chest and abdomen. CT scan of the head was done which showed no acute stroke but did show bifrontal atrophy. Given clinical picture of altered mental status and leukocytosis, meningitis was considered, lumbar puncture was performed which unfortunately was not successful. Anesthesiologist was attempted to call to perform lumbar puncture, per ER physician they deferred the procedure to morning. Patient was empirically started on IV antibiotics and admitted to the hospital for further management. Review of patient's chart shows that patient has been following up with neurology on outpatient basis unsure what the working diagnosis is right now as I am unable to access the records, MRI of the brain was done in 2019, which did show generalized atrophy and small vessel ischemic changes, multiple sclerosis was not excluded. - Related Data Allergies/Adverse Reactions: Allergies Allergy/AdvReac Type Severity Reaction Status Date / Time No Known Allergies Allergy Verified 05/10/21 19:01 Home Medications: Home Meds Cholecalciferol (Vitamin D3) [Vitamin D3] 400 unit PO DAILY 01/19/20 [History] Cyanocobalamin (Vitamin B12) [Vitamin B12] 1,000 mcg PO DAILY 01/19/20 [History] Levothyroxine Sodium [Synthroid] 50 mcg PO DAILY 01/19/20 [History] Past Medical History HEENT History: Reports: Other (See Below) Other HEENT History: wears glasses, has upper partial removable denture- he doesn't usually wear it Cardiovascular History: Reports: None Respiratory History: Reports: None Gastrointestinal History: Reports: None Genitourinary History: Reports: None Musculoskeletal History: Reports: Fracture Other Musculoskeletal History: hx of fx arm- casted Neurological History: Reports: Other (See Below) Other Neuro History: 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, ataxia- walks with peterson Psychiatric History: Reports: Anxiety, Other (See Below) Other Psychiatric History: some cognitive impairment Endocrine/Metabolic History: Reports: Hypothyroidism Hematologic History: Reports: B12 Deficiency Immunologic History: Reports: None Oncologic (Cancer) History: Reports: None Dermatologic History: Reports: None - Infectious Disease History Infectious Disease History: Reports: Chicken Pox, Measles - Past Surgical History Head Surgeries/Procedures: Reports: None HEENT Surgical History: Reports: Eye Surgery Other HEENT Surgeries/Procedures: Eye surgery x5 as a child- last was at age 12 Cardiovascular Surgical History: Reports: None Respiratory Surgical History: Reports: None GI Surgical History: Reports: None Male Surgical History: Reports: None Endocrine Surgical History: Reports: None Neurological Surgical History: Reports: None Musculoskeletal Surgical History: Reports: None Oncologic Surgical History: Reports: None Dermatological Surgical History: Reports: None Social & Family History - Family History Family Medical History: No Pertinent Family History HEENT: Reports: Cataract Cardiac: Reports: Hypertension Respiratory: Reports: COPD GI: Reports: Hiatal Hernia : Reports: None OBGYN: Reports: None Musculoskeletal: Reports: Arthritis Neurological: Reports: None Psychiatric: Reports: None Endocrine/Metabolic: Reports: None Hematologic: Reports: None Immunologic: Reports: None Dermatologic: Reports: None Oncologic: Reports: Colon - Tobacco Use Tobacco Use Status *Q: Former Tobacco User Years of Tobacco use: 40 Packs/Tins Daily: 2 Used Tobacco, but Quit: Yes Month/Year Tobacco Last Used: approx 4 months ago Second Hand Smoke Exposure: Yes - Caffeine Use Caffeine Use: Reports: Soda - Recreational Drug Use Recreational Drug Use: No H&P Review of Systems - Review of Systems: Review Of Systems: Unable To Obtain Reason Not Obtained: Patient is sedated Exam - Exam Exam: See Below - Vital Signs Vital Signs: Last Vital Signs Temp 36.1 C 05/10/21 18:27 Pulse 90 05/10/21 18:27 Resp 18 05/10/21 18:27 BP 175/98 H 05/10/21 18:27 Pulse Ox 96 05/10/21 18:27 Weight: 77.467 kg - Exam General: Sedated. No: Alert, Oriented, Cooperative Neck: Supple, Trachea Midline Lungs: Clear to Auscultation, Normal Respiratory Effort Cardiovascular: Regular Rate, Regular Rhythm, Normal S1, Normal S2 GI/Abdominal Exam: Normal Bowel Sounds, Soft, Non-Tender Extremities: Normal Inspection, Non-Tender. No: Pedal Edema - Patient Data Lab Results Last 24 hrs: Laboratory Results - last 24 hr 05/10/21 05/10/21 05/10/21 Range/Units 12:25 12:25 12:25 WBC 17.08 H (4.0-11.0) K/uL RBC 4.47 L (4.50-5.90) M/uL Hgb 14.3 (13.0-17.0) g/dL Hct 41.7 (38.0-50.0) % MCV 93.3 (80.0-98.0) fL MCH 32.0 (27.0-32.0) pg MCHC 34.3 (31.0-37.0) g/dL RDW Std Deviation 44.1 (28.0-62.0) fl RDW Coeff of Ananda 13 (11.0-15.0) % Plt Count 221 (150-400) K/uL MPV 11.70 (7.40-12.00) fL Neut % (Auto) 87.5 H (48.0-80.0) % Lymph % (Auto) 5.4 L (16.0-40.0) % Foster % (Auto) 7.0 (0.0-15.0) % Eos % (Auto) 0.0 (0.0-7.0) % Baso % (Auto) 0.1 (0.0-1.5) % Neut # (Auto) 15.0 H (1.4-5.7) K/uL Lymph # (Auto) 0.9 (0.6-2.4) K/uL Foster # (Auto) 1.2 H (0.0-0.8) K/uL Eos # (Auto) 0.0 (0.0-0.7) K/uL Baso # (Auto) 0.0 (0.0-0.1) K/uL Nucleated RBC % 0.0 /100WBC Nucleated RBCs # 0 K/uL INR 0.95 Sodium 138 (136-148) mmol/L Potassium 5.3 H (3.5-5.1) mmol/L Chloride 102 (98-107) mmol/L Carbon Dioxide 29.8 (21.0-32.0) mmol/L BUN 11 (7.0-18.0) mg/dL Creatinine 1.2 (0.8-1.3) mg/dL Est Cr Clr Drug Dosing 63.83 mL/min Estimated GFR (MDRD) > 60.0 ml/min Glucose 127 H (74-106) mg/dL Calcium 9.1 (8.5-10.1) mg/dL Phosphorus 5.1 H (2.6-4.7) mg/dL Magnesium 2.2 (1.8-2.4) mg/dL Total Bilirubin 2.0 H (0.2-1.0) mg/dL AST 81 H (15-37) IU/L ALT 39 (14-63) IU/L Alkaline Phosphatase 100 (46-116) U/L Ammonia (19-54) ug/dL Creatine Kinase 2697 H (26-308) U/L Total Protein 7.5 (6.4-8.2) g/dL Albumin 3.7 (3.4-5.0) g/dL Globulin 3.8 (2.6-4.0) g/dL Albumin/Globulin Ratio 1.0 (0.9-1.6) Urine Color Urine Appearance Urine pH (5.0-8.0) Ur Specific Kerby (1.001-1.035) Urine Protein (NEGATIVE) mg/dL Urine Glucose (UA) (NEGATIVE) mg/dL Urine Ketones (NEGATIVE) mg/dL Urine Occult Blood (NEGATIVE) Urine Nitrite (NEGATIVE) Urine Bilirubin (NEGATIVE) Urine Urobilinogen (<2.0) EU/dL Ur Leukocyte Esterase (NEGATIVE) Urine RBC (0-2/HPF) Urine WBC (0-5/HPF) Ur Epithelial Cells (NONE-FEW) Amorphous Sediment (NEGATIVE) Urine Bacteria (NEGATIVE) Urine Mucus (NONE-MOD) Urine Opiates Screen (NEGATIVE) Ur Oxycodone Screen (NEGATIVE) Urine Methadone Screen (NEGATIVE) Ur Barbiturates Screen (NEGATIVE) Ur Phencyclidine Scrn (NEGATIVE) Ur Amphetamine Screen (NEGATIVE) U Methamphetamines Scrn (NEGATIVE) U Benzodiazepines Scrn (NEGATIVE) U Cocaine Metab Screen (NEGATIVE) U Marijuana (THC) Screen (NEGATIVE) Ethyl Alcohol < 3.0 mg/dL SARS-CoV-2 RNA (MICHELLE) (NEGATIVE) 05/10/21 05/10/21 05/10/21 Range/Units 14:18 14:49 14:49 WBC (4.0-11.0) K/uL RBC (4.50-5.90) M/uL Hgb (13.0-17.0) g/dL Hct (38.0-50.0) % MCV (80.0-98.0) fL MCH (27.0-32.0) pg MCHC (31.0-37.0) g/dL RDW Std Deviation (28.0-62.0) fl RDW Coeff of Ananda (11.0-15.0) % Plt Count (150-400) K/uL MPV (7.40-12.00) fL Neut % (Auto) (48.0-80.0) % Lymph % (Auto) (16.0-40.0) % Foster % (Auto) (0.0-15.0) % Eos % (Auto) (0.0-7.0) % Baso % (Auto) (0.0-1.5) % Neut # (Auto) (1.4-5.7) K/uL Lymph # (Auto) (0.6-2.4) K/uL Foster # (Auto) (0.0-0.8) K/uL Eos # (Auto) (0.0-0.7) K/uL Baso # (Auto) (0.0-0.1) K/uL Nucleated RBC % /100WBC Nucleated RBCs # K/uL INR Sodium (136-148) mmol/L Potassium (3.5-5.1) mmol/L Chloride (98-107) mmol/L Carbon Dioxide (21.0-32.0) mmol/L BUN (7.0-18.0) mg/dL Creatinine (0.8-1.3) mg/dL Est Cr Clr Drug Dosing mL/min Estimated GFR (MDRD) ml/min Glucose (74-106) mg/dL Calcium (8.5-10.1) mg/dL Phosphorus (2.6-4.7) mg/dL Magnesium (1.8-2.4) mg/dL Total Bilirubin (0.2-1.0) mg/dL AST (15-37) IU/L ALT (14-63) IU/L Alkaline Phosphatase (46-116) U/L Ammonia 24 (19-54) ug/dL Creatine Kinase (26-308) U/L Total Protein (6.4-8.2) g/dL Albumin (3.4-5.0) g/dL Globulin (2.6-4.0) g/dL Albumin/Globulin Ratio (0.9-1.6) Urine Color YELLOW Urine Appearance CLEAR Urine pH 6.0 (5.0-8.0) Ur Specific Kerby >= 1.030 (1.001-1.035) Urine Protein NEGATIVE (NEGATIVE) mg/dL Urine Glucose (UA) NEGATIVE (NEGATIVE) mg/dL Urine Ketones NEGATIVE (NEGATIVE) mg/dL Urine Occult Blood TRACE-INTACT H (NEGATIVE) Urine Nitrite NEGATIVE (NEGATIVE) Urine Bilirubin NEGATIVE (NEGATIVE) Urine Urobilinogen 0.2 (<2.0) EU/dL Ur Leukocyte Esterase NEGATIVE (NEGATIVE) Urine RBC 0-1 (0-2/HPF) Urine WBC 0-1 (0-5/HPF) Ur Epithelial Cells RARE (NONE-FEW) Amorphous Sediment MODERATE (NEGATIVE) Urine Bacteria RARE (NEGATIVE) Urine Mucus RARE (NONE-MOD) Urine Opiates Screen NEGATIVE (NEGATIVE) Ur Oxycodone Screen NEGATIVE (NEGATIVE) Urine Methadone Screen NEGATIVE (NEGATIVE) Ur Barbiturates Screen NEGATIVE (NEGATIVE) Ur Phencyclidine Scrn NEGATIVE (NEGATIVE) Ur Amphetamine Screen NEGATIVE (NEGATIVE) U Methamphetamines Scrn NEGATIVE (NEGATIVE) U Benzodiazepines Scrn NEGATIVE (NEGATIVE) U Cocaine Metab Screen NEGATIVE (NEGATIVE) U Marijuana (THC) Screen NEGATIVE (NEGATIVE) Ethyl Alcohol mg/dL SARS-CoV-2 RNA (MICHELLE) (NEGATIVE) 05/10/21 05/10/21 05/10/21 Range/Units 14:52 16:32 17:25 WBC (4.0-11.0) K/uL RBC (4.50-5.90) M/uL Hgb (13.0-17.0) g/dL Hct (38.0-50.0) % MCV (80.0-98.0) fL MCH (27.0-32.0) pg MCHC (31.0-37.0) g/dL RDW Std Deviation (28.0-62.0) fl RDW Coeff of Ananda (11.0-15.0) % Plt Count (150-400) K/uL MPV (7.40-12.00) fL Neut % (Auto) (48.0-80.0) % Lymph % (Auto) (16.0-40.0) % Foster % (Auto) (0.0-15.0) % Eos % (Auto) (0.0-7.0) % Baso % (Auto) (0.0-1.5) % Neut # (Auto) (1.4-5.7) K/uL Lymph # (Auto) (0.6-2.4) K/uL Foster # (Auto) (0.0-0.8) K/uL Eos # (Auto) (0.0-0.7) K/uL Baso # (Auto) (0.0-0.1) K/uL Nucleated RBC % /100WBC Nucleated RBCs # K/uL INR Sodium (136-148) mmol/L Potassium (3.5-5.1) mmol/L Chloride (98-107) mmol/L Carbon Dioxide (21.0-32.0) mmol/L BUN (7.0-18.0) mg/dL Creatinine (0.8-1.3) mg/dL Est Cr Clr Drug Dosing mL/min Estimated GFR (MDRD) ml/min Glucose (74-106) mg/dL Calcium (8.5-10.1) mg/dL Phosphorus (2.6-4.7) mg/dL Magnesium (1.8-2.4) mg/dL Total Bilirubin (0.2-1.0) mg/dL AST (15-37) IU/L ALT (14-63) IU/L Alkaline Phosphatase (46-116) U/L Ammonia (19-54) ug/dL Creatine Kinase 3792 H (26-308) U/L Total Protein (6.4-8.2) g/dL Albumin (3.4-5.0) g/dL Globulin (2.6-4.0) g/dL Albumin/Globulin Ratio (0.9-1.6) Urine Color YELLOW Urine Appearance SLT CLOUDY Urine pH 6.0 (5.0-8.0) Ur Specific Kerby >= 1.030 (1.001-1.035) Urine Protein NEGATIVE (NEGATIVE) mg/dL Urine Glucose (UA) NEGATIVE (NEGATIVE) mg/dL Urine Ketones NEGATIVE (NEGATIVE) mg/dL Urine Occult Blood MODERATE H (NEGATIVE) Urine Nitrite NEGATIVE (NEGATIVE) Urine Bilirubin NEGATIVE (NEGATIVE) Urine Urobilinogen 1.0 (<2.0) EU/dL Ur Leukocyte Esterase NEGATIVE (NEGATIVE) Urine RBC 0-1 (0-2/HPF) Urine WBC 0-1 (0-5/HPF) Ur Epithelial Cells RARE (NONE-FEW) Amorphous Sediment MODERATE (NEGATIVE) Urine Bacteria FEW (NEGATIVE) Urine Mucus RARE (NONE-MOD) Urine Opiates Screen (NEGATIVE) Ur Oxycodone Screen (NEGATIVE) Urine Methadone Screen (NEGATIVE) Ur Barbiturates Screen (NEGATIVE) Ur Phencyclidine Scrn (NEGATIVE) Ur Amphetamine Screen (NEGATIVE) U Methamphetamines Scrn (NEGATIVE) U Benzodiazepines Scrn (NEGATIVE) U Cocaine Metab Screen (NEGATIVE) U Marijuana (THC) Screen (NEGATIVE) Ethyl Alcohol mg/dL SARS-CoV-2 RNA (MICHELLE) NEGATIVE (NEGATIVE) Result Diagrams: 05/10/21 12:25 05/10/21 12:25 Sepsis Event Note - Evaluation Sepsis Screening Result: No Definite Risk - Focused Exam Vital Signs: Vital Signs Temp Pulse Resp BP Pulse Ox 05/10/21 18:27 36.1 C 90 18 175/98 H 96 05/10/21 17:58 87 18 172/101 H 97 05/10/21 17:49 88 162/114 H 94 L 05/10/21 17:20 159/72 H 05/10/21 16:49 143/80 H 05/10/21 16:19 152/85 H 05/10/21 15:49 149/95 H 05/10/21 15:19 164/86 H 05/10/21 14:49 166/91 H 96 05/10/21 13:49 155/93 H 05/10/21 13:18 72 144/85 H 94 L 05/10/21 12:29 77 145/87 H 95 05/10/21 12:19 77 138/61 97 05/10/21 12:17 37.1 C 76 18 138/61 96 - Problem List (1) Ataxia SNOMED Code(s): 01133466 ICD Code: R27.0 - ATAXIA, UNSPECIFIED Status: Acute Current Visit: Yes (2) Cognitive impairment SNOMED Code(s): 384185023 ICD Code: R41.89 - OTH SYMPTOMS AND SIGNS W COGNITIVE FUNCTIONS AND AWARENESS Status: Acute Current Visit: Yes (3) Dysarthria SNOMED Code(s): 4837659 ICD Code: R47.1 - DYSARTHRIA AND ANARTHRIA Status: Acute Current Visit: Yes (4) Hypothyroidism SNOMED Code(s): 92879502 ICD Code: E03.9 - HYPOTHYROIDISM, UNSPECIFIED Status: Acute Current Vi sit: Yes (5) Neurodegenerative disorder SNOMED Code(s): 621606208 ICD Code: G31.9 - DEGENERATIVE DISEASE OF NERVOUS SYSTEM, UNSPECIFIED Status: Acute Current Visit: Yes (6) Altered mental status SNOMED Code(s): 953922409 ICD Code: R41.82 - ALTERED MENTAL STATUS, UNSPECIFIED Status: Acute Current Visit: Yes Problem List Initiated/Reviewed/Updated: Yes Orders Last 24hrs: Active Orders 24 hr Category Date Time Status Patient Status [ADT] Routine ADT 05/10/21 16:35 Active Ambulate [RC] ASDIRECTED Care 05/10/21 18:24 Active Antiembolic Devices [RC] PER UNIT ROUTINE Care 05/10/21 18:25 Active Blood Glucose Check, Bedside [RC] TIDAC Care 05/10/21 18:24 Active Oxygen Therapy [RC] PRN Care 05/10/21 18:24 Active RT Aerosol Therapy [RC] ASDIRECTED Care 05/10/21 18:26 Active VTE/DVT Education [RC] PER UNIT ROUTINE Care 05/10/21 18:24 Active Vital Signs [RC] Q4H Care 05/10/21 18:24 Active Clear Liquid Diet [DIET] Diet 05/10/21 Dinner Active CBC WITH AUTO DIFF [HEME] AM Lab 05/11/21 05:11 Ordered CELL COUNT,CSF [BF] Stat Lab 05/10/21 14:46 Ordered CMP [COMPREHENSIVE METABOLIC PN,CMP] [CHEM] AM Lab 05/11/21 05:11 Ordered CSF CULTURE [MREF] Stat Lab 05/10/21 14:46 Ordered GLUCOSE,CSF [BF] Stat Lab 05/10/21 14:46 Ordered LACTATE SEPSIS W/ REFLEX [CHEM] Stat Lab 05/10/21 12:29 Ordered LACTATE SEPSIS W/ REFLEX [CHEM] Stat Lab 05/10/21 18:58 Ordered MAGNESIUM [CHEM] AM Lab 05/11/21 05:11 Ordered PHOSPHORUS [CHEM] AM Lab 05/11/21 05:11 Ordered PROTEIN,CSF [BF] Stat Lab 05/10/21 14:46 Ordered VANCOMYCIN TROUGH [CHEM] Timed Lab 05/12/21 16:30 Ordered Albuterol/Ipratropium [DuoNeb 3.0-0.5 MG/3 ML] Med 05/10/21 18:24 Active 3 ml NEB Q4HRRT PRN Ampicillin 2 gm Med 05/10/21 19:00 Active Sodium Chloride 0.9% [Normal Saline] 100 ml IV Q4H Heparin Sodium Med 05/10/21 18:30 Active 5,000 units SUBCUT Q8H Lactated Ringers [Ringers, Lactated] 1,000 ml Med 05/10/21 18:30 Active IV ASDIRECTED Ondansetron [Zofran] Med 05/10/21 18:24 Active 4 mg IVPUSH Q4H PRN Pantoprazole [ProTONIX IV] 40 mg Med 05/10/21 18:45 Active Sodium Chloride 0.9% [Normal Saline] 10 ml IV DAILY Pharmacy to Dose - Vancomycin Med 05/10/21 18:45 Pending 1 dose .XX ASDIRECTED VANCOmycin 2 GM/400 ML 2 gm Med 05/10/21 17:08 Active Premix Bag 1 bag IV STAT Vancomycin 1.25 gm Med 05/11/21 05:00 Active Sodium Chloride 0.9% [Normal Saline (AdvBag)] 250 ml IV Q12H cefTRIAXone [Rocephin] 2 gm Med 05/11/21 09:00 Active Sodium Chloride 0.9% [Normal Saline] 50 ml IV Q12H dexAMETHasone [Decadron] Med 05/10/21 19:00 Active 6 mg IVPUSH DAILY Sequential Compression Device [OM.PC] Per Unit Routine Oth 05/10/21 18:24 Ordered Resuscitation Status Routine Resus Stat 05/10/21 18:24 Ordered Medication Orders Albuterol/Ipratropium (Albuterol/Ipratropium 3.0-0.5 Mg/3 Ml Neb Soln) 3 ml NEB Q4HRRT PRN PRN Reason: Shortness Of Breath/wheezing Dexamethasone (Dexamethasone 4 Mg/Ml Sdv) 6 mg IVPUSH DAILY DEANNA Heparin Sodium (Porcine) (Heparin Sodium 5,000 Units/Ml Vial) 5,000 units SUBCUT Q8H DEANNA Vancomycin HCl 2 gm/ Premix 400 mls @ 200 mls/hr IV STAT ONE Stop: 05/10/21 19:07 Lactated Ringer's (Ringers, Lactated) 1,000 mls @ 150 mls/hr IV ASDIRECTED [facility] Pantoprazole Sodium 40 mg/ (Sodium Chloride) 10 mls @ 200 mls/hr IV DAILY DEANNA Ampicillin Sodium 2 gm/ Sodium (Chloride) 100 mls @ 200 mls/hr IV Q4H DEANNA Ceftriaxone Sodium 2 gm/ (Sodium Chloride) 50 mls @ 100 mls/hr IV Q12H DEANNA Vancomycin HCl 1.25 gm/ Sodium (Chloride) 250 mls @ 166.667 mls/hr IV Q12H DEANNA Ondansetron HCl (Ondansetron 4 Mg/2 Ml Sdv) 4 mg IVPUSH Q4H PRN PRN Reason: Nausea/Vomiting Vancomycin HCl (Pharmacy To Dose - Vancomycin) 1 dose .XX ASDIRECTED [facility] Assessment/Plan Comment:: 61-year-old male admitted for altered mental status and leukocytosis UA negative, no evident source of infection resulting in metabolic encephalopathy Currently being empirically treated for possible bacterial meningitis, although suspicion is low, lumbar puncture was unsuccessful CT scan of the head noted, possible component of dementia complicated by delirium We will also try to touch base with Dr. Gilman who has been following the patient on outpatient basis for further recommendation Patient was highly agitated on the floor and had to be chemically sedated with Haldol and Ativan, although would avoid using chemical sedation but it was necessary for patient and staff safety. Continue supportive care Lovenox for DVT prophylaxis Monitor and replete electrolytes as necessary Continue home meds as appropriate once med rec is done
[2021-05-10] MEDS: Ampicillin 2 GM in Sodium Chloride 0.9% 100 ML IV SCH ×2 (19:03→22:56)
[2021-05-10] MEDS: Lactated Ringers 1,000 ML IV SCH (19:23)
[2021-05-10] MEDS: Pantoprazole 40 MG in Sodium Chloride 0.9% 10 ML IV SCH (19:27)
[2021-05-10] MEDS: Heparin Sodium 5,000 Units/ML Vial SUBCUT SCH (19:29)
[2021-05-10] MEDS: Dexamethasone 4 MG/ML SDV IVPUSH SCH (19:34)
[2021-05-10] MEDS ORDERED: LORazepam 2 MG/ML SDV IVPUSH ONE (20:00)
[2021-05-10] MEDS ORDERED: Haloperidol Lactate 5 MG/ML SDV IM ONE (20:01)
[2021-05-10] MEDS ORDERED: diphenhydrAMINE 50 MG/ML SDV IVPUSH ONE (20:02)
[2021-05-10] MEDS ORDERED: Lactated Ringers 1,000 ML IV ONE (23:05)
[2021-05-11] MEDS: Lactated Ringers 1,000 ML IV SCH ×3 (01:38→22:15)
[2021-05-11] MEDS: Heparin Sodium 5,000 Units/ML Vial SUBCUT SCH ×2 (01:46→11:56)
[2021-05-11] MEDS: Ampicillin 2 GM in Sodium Chloride 0.9% 100 ML IV SCH ×6 (03:24→23:55)
[2021-05-11 06:35] LABS: BLOOD UREA NITROGEN,BUN 14 mg/dL (7.0-18.0); CARBON DIOXIDE,CO2 24.8 mmol/L (21.0-32.0); CHLORIDE,CL 102 mmol/L (98-107); GLUCOSE RANDOM 150 mg/dL (74-106); POTASSIUM,K 4.2 mmol/L (3.5-5.1); SODIUM,NA 135 mmol/L (136-148)
[2021-05-11] MEDS: Levothyroxine 25 MCG Tab PO SCH (08:14)
[2021-05-11] MEDS ORDERED: cefTRIAXone 2 GM in Sodium Chloride 0.9% 50 ML IV SCH ×4 (09:00)
[2021-05-11] MEDS: Pantoprazole 40 MG in Sodium Chloride 0.9% 10 ML IV SCH (10:12)
[2021-05-11] MEDS: Cyanocobalamin (Vitamin B12) 500 MCG Tab PO SCH (10:16)
[2021-05-11] MEDS ORDERED: Magnesium Sulfate/Water 2 GM in Premix Bag 1 BAG IV ONE (10:16)
[2021-05-11] MEDS: Dexamethasone 4 MG/ML SDV IVPUSH SCH (10:19)
[2021-05-11] MEDS: cefTRIAXone 2 GM/50 ML BAG IV SCH ×2 (10:27→22:15)
--- NOTE | 2021-05-11 11:55 | PCM.PR.LP ---
Lumbar Puncture - Lumbar Puncture Lumbar Puncture Indication: Reports: CSF analysis, suspected meningitis Position: left lateral Location/vertebral space: L3-L4 Prep: Reports: Sterile Drapes, Chlorhexidine Local anesthesia: Reports: lidocaine 1 % Needle size: 18g Fluid: Reports: clear Volume in cc's: 5 Opening pressure [facility] Complications: No Dressing: Reports: adhesive dressing Lumbar puncture comment:: Patient tolerated procedure well.
--- NOTE | 2021-05-11 12:54 | PCM.HP.2 ---
H&P History of Present Illness - General Date of Service: 05/11/21 Admit Problem/Dx: Admission Diagnosis/Problem Admission Diagnosis/Problem Mental deterioration - History of Present Illness Initial Comments - Free Text/Narative: Patient seen at bedside, awake able to have some basic conversation with me, not at his baseline yet per family at bedside. I spoke to the family in detail, and I also went through the records from patient's neurologist, patient has been diagnosed with progressive supranuclear palsy as well as dementia. Patient has had a cognitive decline in last 1 year. Patient sister is the power of assistant district attorney and she is considering placement at some point of time depending upon the clinical course of the patient during this hospitalization. - Related Data Allergies/Adverse Reactions: Allergies Allergy/AdvReac Type Severity Reaction Status Date / Time No Known Allergies Allergy Verified 05/10/21 19:01 Home Medications: Home Meds Cholecalciferol (Vitamin D3) [Vitamin D3] 400 unit PO DAILY 01/19/20 [History] Cyanocobalamin (Vitamin B12) [Vitamin B12] 1,000 mcg PO DAILY 01/19/20 [History] Levothyroxine Sodium [Synthroid] 50 mcg PO DAILY 01/19/20 [History] Past Medical History HEENT History: Reports: Other (See Below) Other HEENT History: wears glasses, has upper partial removable denture- he doesn't usually wear it Cardiovascular History: Reports: None Respiratory History: Reports: None Gastrointestinal History: Reports: None Genitourinary History: Reports: None Musculoskeletal History: Reports: Fracture Other Musculoskeletal History: hx of fx arm- casted Neurological History: Reports: Other (See Below) Other Neuro History: 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, ataxia- walks with peterson Psychiatric History: Reports: Anxiety, Other (See Below) Other Psychiatric History: some cognitive impairment Endocrine/Metabolic History: Reports: Hypothyroidism Hematologic History: Reports: B12 Deficiency Immunologic History: Reports: None Oncologic (Cancer) History: Reports: None Dermatologic History: Reports: None - Infectious Disease History Infectious Disease History: Reports: Chicken Pox, Measles - Past Surgical History Head Surgeries/Procedures: Reports: None HEENT Surgical History: Reports: Eye Surgery Other HEENT Surgeries/Procedures: Eye surgery x5 as a child- last was at age 12 Cardiovascular Surgical History: Reports: None Respiratory Surgical History: Reports: None GI Surgical History: Reports: None Male Surgical History: Reports: None Endocrine Surgical History: Reports: None Neurological Surgical History: Reports: None Musculoskeletal Surgical History: Reports: None Oncologic Surgical History: Reports: None Dermatological Surgical History: Reports: None Social & Family History - Family History Family Medical History: No Pertinent Family History HEENT: Reports: Cataract Cardiac: Reports: Hypertension Respiratory: Reports: COPD GI: Reports: Hiatal Hernia : Reports: None OBGYN: Reports: None Musculoskeletal: Reports: Arthritis Neurological: Reports: None Psychiatric: Reports: None Endocrine/Metabolic: Reports: None Hematologic: Reports: None Immunologic: Reports: None Dermatologic: Reports: None Oncologic: Reports: Colon - Tobacco Use Tobacco Use Status *Q: Former Tobacco User Years of Tobacco use: 40 Packs/Tins Daily: 2 Used Tobacco, but Quit: Yes Month/Year Tobacco Last Used: approx 4 months ago Second Hand Smoke Exposure: Yes - Caffeine Use Caffeine Use: Reports: Soda - Recreational Drug Use Recreational Drug Use: No H&P Review of Systems - Review of Systems: Review Of Systems: See Below General: Denies: Fever, Chills, Malaise Pulmonary: Denies: Shortness of Breath, Wheezing Cardiovascular: Denies: Chest Pain, Palpitations Gastrointestinal: Denies: Abdominal Pain, Anorexia, Black Stool Genitourinary: Denies: Dysuria, Frequency, Burning Musculoskeletal: Denies: Neck Pain, Shoulder Pain Skin: Denies: Cyanosis, Jaundice, Mottled Psychiatric: Reports: Confusion, Mood Lability. Denies: Depression, Anxiety, Hallucinations, Hallucinations (Auditory), Hallucinations (Visual) Neurological: Denies: Confusion, Dizziness, Headache Exam - Exam Exam: See Below - Vital Signs Vital Signs: Last Vital Signs Temp 37.4 C 05/11/21 12:00 Pulse 82 05/11/21 12:00 Resp 16 05/11/21 12:00 BP 171/75 H 05/11/21 12:00 Pulse Ox 97 05/11/21 12:00 Weight: 77.467 kg - Exam General: Cooperative, Lethargic. No: Alert, Oriented Neck: Supple, Trachea Midline Lungs: Clear to Auscultation, Normal Respiratory Effort Cardiovascular: Regular Rate, Regular Rhythm, Normal S1, Normal S2 Extremities: Normal Inspection, Normal Range of Motion Skin: Warm, Intact Neurological: Strength Equal Bilateral, Sensation Intact. No: Normal Gait, Normal Speech, Focal Deficit Neuro Extensive - Mental Status: Opens Eyes to Commands, Slow Response to Commands, Withdraws to Pain. No: Alert, Oriented x3, Normal Cognition - Patient Data Lab Results Last 24 hrs: Laboratory Results - last 24 hr 05/10/21 05/10/21 05/10/21 Range/Units 12:25 12:25 12:25 WBC (4.0-11.0) K/uL RBC (4.50-5.90) M/uL Hgb (13.0-17.0) g/dL Hct (38.0-50.0) % MCV (80.0-98.0) fL MCH (27.0-32.0) pg MCHC (31.0-37.0) g/dL RDW Std Deviation (28.0-62.0) fl RDW Coeff of Ananda (11.0-15.0) % Plt Count (150-400) K/uL MPV (7.40-12.00) fL Neut % (Auto) (48.0-80.0) % Lymph % (Auto) (16.0-40.0) % Dillon % (Auto) (0.0-15.0) % Eos % (Auto) (0.0-7.0) % Baso % (Auto) (0.0-1.5) % Neut # (Auto) (1.4-5.7) K/uL Lymph # (Auto) (0.6-2.4) K/uL Dillon # (Auto) (0.0-0.8) K/uL Eos # (Auto) (0.0-0.7) K/uL Baso # (Auto) (0.0-0.1) K/uL Nucleated RBC % /100WBC Nucleated RBCs # K/uL INR 0.95 Sodium 138 (136-148) mmol/L Potassium 5.3 H (3.5-5.1) mmol/L Chloride 102 (98-107) mmol/L Carbon Dioxide 29.8 (21.0-32.0) mmol/L BUN 11 (7.0-18.0) mg/dL Creatinine 1.2 (0.8-1.3) mg/dL Est Cr Clr Drug Dosing 63.83 mL/min Estimated GFR (MDRD) > 60.0 ml/min Glucose 127 H (74-106) mg/dL POC Glucose (70-99) mg/dL Lactic Acid (0.4-2.0) mmol/L Calcium 9.1 (8.5-10.1) mg/dL Phosphorus 5.1 H (2.6-4.7) mg/dL Magnesium 2.2 (1.8-2.4) mg/dL Total Bilirubin 2.0 H (0.2-1.0) mg/dL AST 81 H (15-37) IU/L ALT 39 (14-63) IU/L Alkaline Phosphatase 100 (46-116) U/L Ammonia (19-54) ug/dL Creatine Kinase 2697 H (26-308) U/L Total Protein 7.5 (6.4-8.2) g/dL Albumin 3.7 (3.4-5.0) g/dL Globulin 3.8 (2.6-4.0) g/dL Albumin/Globulin Ratio 1.0 (0.9-1.6) TSH 3rd Generation 1.20 (0.36-3.74) uIU/mL Urine Color Urine Appearance Urine pH (5.0-8.0) Ur Specific Hallock (1.001-1.035) Urine Protein (NEGATIVE) mg/dL Urine Glucose (UA) (NEGATIVE) mg/dL Urine Ketones (NEGATIVE) mg/dL Urine Occult Blood (NEGATIVE) Urine Nitrite (NEGATIVE) Urine Bilirubin (NEGATIVE) Urine Urobilinogen (<2.0) EU/dL Ur Leukocyte Esterase (NEGATIVE) Urine RBC (0-2/HPF) Urine WBC (0-5/HPF) Ur Epithelial Cells (NONE-FEW) Amorphous Sediment (NEGATIVE) Urine Bacteria (NEGATIVE) Urine Mucus (NONE-MOD) Urine Opiates Screen (NEGATIVE) Ur Oxycodone Screen (NEGATIVE) Urine Methadone Screen (NEGATIVE) Ur Barbiturates Screen (NEGATIVE) Ur Phencyclidine Scrn (NEGATIVE) Ur Amphetamine Screen (NEGATIVE) U Methamphetamines Scrn (NEGATIVE) U Benzodiazepines Scrn (NEGATIVE) U Cocaine Metab Screen (NEGATIVE) U Marijuana (THC) Screen (NEGATIVE) Ethyl Alcohol < 3.0 mg/dL SARS-CoV-2 RNA (MICHELLE) (NEGATIVE) 05/10/21 05/10/21 05/10/21 Range/Units 14:18 14:49 14:49 WBC (4.0-11.0) K/uL RBC (4.50-5.90) M/uL Hgb (13.0-17.0) g/dL Hct (38.0-50.0) % MCV (80.0-98.0) fL MCH (27.0-32.0) pg MCHC (31.0-37.0) g/dL RDW Std Deviation (28.0-62.0) fl RDW Coeff of Ananda (11.0-15.0) % Plt Count (150-400) K/uL MPV (7.40-12.00) fL Neut % (Auto) (48.0-80.0) % Lymph % (Auto) (16.0-40.0) % Dillon % (Auto) (0.0-15.0) % Eos % (Auto) (0.0-7.0) % Baso % (Auto) (0.0-1.5) % Neut # (Auto) (1.4-5.7) K/uL Lymph # (Auto) (0.6-2.4) K/uL Dillon # (Auto) (0.0-0.8) K/uL Eos # (Auto) (0.0-0.7) K/uL Baso # (Auto) (0.0-0.1) K/uL Nucleated RBC % /100WBC Nucleated RBCs # K/uL INR Sodium (136-148) mmol/L Potassium (3.5-5.1) mmol/L Chloride (98-107) mmol/L Carbon Dioxide (21.0-32.0) mmol/L BUN (7.0-18.0) mg/dL Creatinine (0.8-1.3) mg/dL Est Cr Clr Drug Dosing mL/min Estimated GFR (MDRD) ml/min Glucose (74-106) mg/dL POC Glucose (70-99) mg/dL Lactic Acid (0.4-2.0) mmol/L Calcium (8.5-10.1) mg/dL Phosphorus (2.6-4.7) mg/dL Magnesium (1.8-2.4) mg/dL Total Bilirubin (0.2-1.0) mg/dL AST (15-37) IU/L ALT (14-63) IU/L Alkaline Phosphatase (46-116) U/L Ammonia 24 (19-54) ug/dL Creatine Kinase (26-308) U/L Total Protein (6.4-8.2) g/dL Albumin (3.4-5.0) g/dL Globulin (2.6-4.0) g/dL Albumin/Globulin Ratio (0.9-1.6) TSH 3rd Generation (0.36-3.74) uIU/mL Urine Color YELLOW Urine Appearance CLEAR Urine pH 6.0 (5.0-8.0) Ur Specific Hallock >= 1.030 (1.001-1.035) Urine Protein NEGATIVE (NEGATIVE) mg/dL Urine Glucose (UA) NEGATIVE (NEGATIVE) mg/dL Urine Ketones NEGATIVE (NEGATIVE) mg/dL Urine Occult Blood TRACE-INTACT H (NEGATIVE) Urine Nitrite NEGATIVE (NEGATIVE) Urine Bilirubin NEGATIVE (NEGATIVE) Urine Urobilinogen 0.2 (<2.0) EU/dL Ur Leukocyte Esterase NEGATIVE (NEGATIVE) Urine RBC 0-1 (0-2/HPF) Urine WBC 0-1 (0-5/HPF) Ur Epithelial Cells RARE (NONE-FEW) Amorphous Sediment MODERATE (NEGATIVE) Urine Bacteria RARE (NEGATIVE) Urine Mucus RARE (NONE-MOD) Urine Opiates Screen NEGATIVE (NEGATIVE) Ur Oxycodone Screen NEGATIVE (NEGATIVE) Urine Methadone Screen NEGATIVE (NEGATIVE) Ur Barbiturates Screen NEGATIVE (NEGATIVE) Ur Phencyclidine Scrn NEGATIVE (NEGATIVE) Ur Amphetamine Screen NEGATIVE (NEGATIVE) U Methamphetamines Scrn NEGATIVE (NEGATIVE) U Benzodiazepines Scrn NEGATIVE (NEGATIVE) U Cocaine Metab Screen NEGATIVE (NEGATIVE) U Marijuana (THC) Screen NEGATIVE (NEGATIVE) Ethyl Alcohol mg/dL SARS-CoV-2 RNA (MICHELLE) (NEGATIVE) 05/10/21 05/10/21 05/10/21 Range/Units 14:52 16:32 17:25 WBC (4.0-11.0) K/uL RBC (4.50-5.90) M/uL Hgb (13.0-17.0) g/dL Hct (38.0-50.0) % MCV (80.0-98.0) fL MCH (27.0-32.0) pg MCHC (31.0-37.0) g/dL RDW Std Deviation (28.0-62.0) fl RDW Coeff of Ananda (11.0-15.0) % Plt Count (150-400) K/uL MPV (7.40-12.00) fL Neut % (Auto) (48.0-80.0) % Lymph % (Auto) (16.0-40.0) % Dillon % (Auto) (0.0-15.0) % Eos % (Auto) (0.0-7.0) % Baso % (Auto) (0.0-1.5) % Neut # (Auto) (1.4-5.7) K/uL Lymph # (Auto) (0.6-2.4) K/uL Dillon # (Auto) (0.0-0.8) K/uL Eos # (Auto) (0.0-0.7) K/uL Baso # (Auto) (0.0-0.1) K/uL Nucleated RBC % /100WBC Nucleated RBCs # K/uL INR Sodium (136-148) mmol/L Potassium (3.5-5.1) mmol/L Chloride (98-107) mmol/L Carbon Dioxide (21.0-32.0) mmol/L BUN (7.0-18.0) mg/dL Creatinine (0.8-1.3) mg/dL Est Cr Clr Drug Dosing mL/min Estimated GFR (MDRD) ml/min Glucose (74-106) mg/dL POC Glucose (70-99) mg/dL Lactic Acid (0.4-2.0) mmol/L Calcium (8.5-10.1) mg/dL Phosphorus (2.6-4.7) mg/dL Magnesium (1.8-2.4) mg/dL Total Bilirubin (0.2-1.0) mg/dL AST (15-37) IU/L ALT (14-63) IU/L Alkaline Phosphatase (46-116) U/L Ammonia (19-54) ug/dL Creatine Kinase 3792 H (26-308) U/L Total Protein (6.4-8.2) g/dL Albumin (3.4-5.0) g/dL Globulin (2.6-4.0) g/dL Albumin/Globulin Ratio (0.9-1.6) TSH 3rd Generation (0.36-3.74) uIU/mL Urine Color YELLOW Urine Appearance SLT CLOUDY Urine pH 6.0 (5.0-8.0) Ur Specific Hallock >= 1.030 (1.001-1.035) Urine Protein NEGATIVE (NEGATIVE) mg/dL Urine Glucose (UA) NEGATIVE (NEGATIVE) mg/dL Urine Ketones NEGATIVE (NEGATIVE) mg/dL Urine Occult Blood MODERATE H (NEGATIVE) Urine Nitrite NEGATIVE (NEGATIVE) Urine Bilirubin NEGATIVE (NEGATIVE) Urine Urobilinogen 1.0 (<2.0) EU/dL Ur Leukocyte Esterase NEGATIVE (NEGATIVE) Urine RBC 0-1 (0-2/HPF) Urine WBC 0-1 (0-5/HPF) Ur Epithelial Cells RARE (NONE-FEW) Amorphous Sediment MODERATE (NEGATIVE) Urine Bacteria FEW (NEGATIVE) Urine Mucus RARE (NONE-MOD) Urine Opiates Screen (NEGATIVE) Ur Oxycodone Screen (NEGATIVE) Urine Methadone Screen (NEGATIVE) Ur Barbiturates Screen (NEGATIVE) Ur Phencyclidine Scrn (NEGATIVE) Ur Amphetamine Screen (NEGATIVE) U Methamphetamines Scrn (NEGATIVE) U Benzodiazepines Scrn (NEGATIVE) U Cocaine Metab Screen (NEGATIVE) U Marijuana (THC) Screen (NEGATIVE) Ethyl Alcohol mg/dL SARS-CoV-2 RNA (MICHELLE) NEGATIVE (NEGATIVE) 05/10/21 05/11/21 05/11/21 Range/Units 19:15 00:15 01:39 WBC (4.0-11.0) K/uL RBC (4.50-5.90) M/uL Hgb (13.0-17.0) g/dL Hct (38.0-50.0) % MCV (80.0-98.0) fL MCH (27.0-32.0) pg MCHC (31.0-37.0) g/dL RDW Std Deviation (28.0-62.0) fl RDW Coeff of Ananda (11.0-15.0) % Plt Count (150-400) K/uL MPV (7.40-12.00) fL Neut % (Auto) (48.0-80.0) % Lymph % (Auto) (16.0-40.0) % Dillon % (Auto) (0.0-15.0) % Eos % (Auto) (0.0-7.0) % Baso % (Auto) (0.0-1.5) % Neut # (Auto) (1.4-5.7) K/uL Lymph # (Auto) (0.6-2.4) K/uL Dillon # (Auto) (0.0-0.8) K/uL Eos # (Auto) (0.0-0.7) K/uL Baso # (Auto) (0.0-0.1) K/uL Nucleated RBC % /100WBC Nucleated RBCs # K/uL INR Sodium (136-148) mmol/L Potassium (3.5-5.1) mmol/L Chloride (98-107) mmol/L Carbon Dioxide (21.0-32.0) mmol/L BUN (7.0-18.0) mg/dL Creatinine (0.8-1.3) mg/dL Est Cr Clr Drug Dosing mL/min Estimated GFR (MDRD) ml/min Glucose (74-106) mg/dL POC Glucose 152 H (70-99) mg/dL Lactic Acid 2.7 H* 2.1 H* (0.4-2.0) mmol/L Calcium (8.5-10.1) mg/dL Phosphorus (2.6-4.7) mg/dL Magnesium (1.8-2.4) mg/dL Total Bilirubin (0.2-1.0) mg/dL AST (15-37) IU/L ALT (14-63) IU/L Alkaline Phosphatase (46-116) U/L Ammonia (19-54) ug/dL Creatine Kinase (26-308) U/L Total Protein (6.4-8.2) g/dL Albumin (3.4-5.0) g/dL Globulin (2.6-4.0) g/dL Albumin/Globulin Ratio (0.9-1.6) TSH 3rd Generation (0.36-3.74) uIU/mL Urine Color Urine Appearance Urine pH (5.0-8.0) Ur Specific Hallock (1.001-1.035) Urine Protein (NEGATIVE) mg/dL Urine Glucose (UA) (NEGATIVE) mg/dL Urine Ketones (NEGATIVE) mg/dL Urine Occult Blood (NEGATIVE) Urine Nitrite (NEGATIVE) Urine Bilirubin (NEGATIVE) Urine Urobilinogen (<2.0) EU/dL Ur Leukocyte Esterase (NEGATIVE) Urine RBC (0-2/HPF) Urine WBC (0-5/HPF) Ur Epithelial Cells (NONE-FEW) Amorphous Sediment (NEGATIVE) Urine Bacteria (NEGATIVE) Urine Mucus (NONE-MOD) Urine Opiates Screen (NEGATIVE) Ur Oxycodone Screen (NEGATIVE) Urine Methadone Screen (NEGATIVE) Ur Barbiturates Screen (NEGATIVE) Ur Phencyclidine Scrn (NEGATIVE) Ur Amphetamine Screen (NEGATIVE) U Methamphetamines Scrn (NEGATIVE) U Benzodiazepines Scrn (NEGATIVE) U Cocaine Metab Screen (NEGATIVE) U Marijuana (THC) Screen (NEGATIVE) Ethyl Alcohol mg/dL SARS-CoV-2 RNA (MICHELLE) (NEGATIVE) 05/11/21 05/11/21 05/11/21 Range/Units 05:23 05:23 05:23 WBC 11.98 H (4.0-11.0) K/uL RBC 3.65 L (4.50-5.90) M/uL Hgb 11.7 L (13.0-17.0) g/dL Hct 33.9 L (38.0-50.0) % MCV 92.9 (80.0-98.0) fL MCH 32.1 H (27.0-32.0) pg MCHC 34.5 (31.0-37.0) g/dL RDW Std Deviation 43.1 (28.0-62.0) fl RDW Coeff of Ananda 13 (11.0-15.0) % Plt Count 176 (150-400) K/uL MPV 12.00 (7.40-12.00) fL Neut % (Auto) 91.9 H (48.0-80.0) % Lymph % (Auto) 4.3 L (16.0-40.0) % Dillon % (Auto) 3.8 (0.0-15.0) % Eos % (Auto) 0.0 (0.0-7.0) % Baso % (Auto) 0.0 (0.0-1.5) % Neut # (Auto) 11.0 H (1.4-5.7) K/uL Lymph # (Auto) 0.5 L (0.6-2.4) K/uL Dillon # (Auto) 0.5 (0.0-0.8) K/uL Eos # (Auto) 0.0 (0.0-0.7) K/uL Baso # (Auto) 0.0 (0.0-0.1) K/uL Nucleated RBC % 0.0 /100WBC Nucleated RBCs # 0 K/uL INR Sodium 135 L (136-148) mmol/L Potassium 4.2 (3.5-5.1) mmol/L Chloride 102 (98-107) mmol/L Carbon Dioxide 24.8 (21.0-32.0) mmol/L BUN 14 (7.0-18.0) mg/dL Creatinine 1.1 (0.8-1.3) mg/dL Est Cr Clr Drug Dosing 71.89 mL/min Estimated GFR (MDRD) > 60.0 ml/min Glucose 150 H (74-106) mg/dL POC Glucose (70-99) mg/dL Lactic Acid (0.4-2.0) mmol/L Calcium 7.8 L (8.5-10.1) mg/dL Phosphorus 2.6 (2.6-4.7) mg/dL Magnesium 1.7 L (1.8-2.4) mg/dL Total Bilirubin 1.6 H (0.2-1.0) mg/dL AST 73 H (15-37) IU/L ALT 33 (14-63) IU/L Alkaline Phosphatase 69 (46-116) U/L Ammonia (19-54) ug/dL Creatine Kinase 2203 H (26-308) U/L Total Protein 6.0 L (6.4-8.2) g/dL Albumin 2.9 L (3.4-5.0) g/dL Globulin 3.1 (2.6-4.0) g/dL Albumin/Globulin Ratio 0.9 (0.9-1.6) TSH 3rd Generation (0.36-3.74) uIU/mL Urine Color Urine Appearance Urine pH (5.0-8.0) Ur Specific Hallock (1.001-1.035) Urine Protein (NEGATIVE) mg/dL Urine Glucose (UA) (NEGATIVE) mg/dL Urine Ketones (NEGATIVE) mg/dL Urine Occult Blood (NEGATIVE) Urine Nitrite (NEGATIVE) Urine Bilirubin (NEGATIVE) Urine Urobilinogen (<2.0) EU/dL Ur Leukocyte Esterase (NEGATIVE) Urine RBC (0-2/HPF) Urine WBC (0-5/HPF) Ur Epithelial Cells (NONE-FEW) Amorphous Sediment (NEGATIVE) Urine Bacteria (NEGATIVE) Urine Mucus (NONE-MOD) Urine Opiates Screen (NEGATIVE) Ur Oxycodone Screen (NEGATIVE) Urine Methadone Screen (NEGATIVE) Ur Barbiturates Screen (NEGATIVE) Ur Phencyclidine Scrn (NEGATIVE) Ur Amphetamine Screen (NEGATIVE) U Methamphetamines Scrn (NEGATIVE) U Benzodiazepines Scrn (NEGATIVE) U Cocaine Metab Screen (NEGATIVE) U Marijuana (THC) Screen (NEGATIVE) Ethyl Alcohol mg/dL SARS-CoV-2 RNA (MICHELLE) (NEGATIVE) Result Diagrams: 05/11/21 05:23 05/11/21 05:23 Sepsis Event Note - Evaluation Sepsis Screening Result: No Definite Risk - Focused Exam Vital Signs: Vital Signs Temp Pulse Resp BP Pulse Ox 05/11/21 12:00 37.4 C 82 16 171/75 H 97 05/11/21 08:00 37.1 C 81 18 148/75 H 95 05/11/21 03:27 36.6 C 92 18 130/80 95 - Problem List (1) Ataxia SNOMED Code(s): 80333814 ICD Code: R27.0 - ATAXIA, UNSPECIFIED Status: Acute Current Visit: Yes (2) Cognitive impairment SNOMED Code(s): 048114351 ICD Code: R41.89 - OTH SYMPTOMS AND SIGNS W COGNITIVE FUNCTIONS AND AWARENESS Status: Acute Current Visit: Yes (3) Dysarthria SNOMED Code(s): 3998147 ICD Code: R47.1 - DYSARTHRIA AND ANARTHRIA Status: Acute Current Visit: Yes (4) Hypothyroidism SNOMED Code(s): 03765273 ICD Code: E03.9 - HYPOTHYROIDISM, UNSPECIFIED Status: Acute Current Visit: Yes (5) Neurodegenerative disorder SNOMED Code(s): 809394034 ICD Code: G31.9 - DEGENERATIVE DISEASE OF NERVOUS SYSTEM, UNSPECIFIED St atus: Acute Current Visit: Yes (6) Altered mental status SNOMED Code(s): 433631773 ICD Code: R41.82 - ALTERED MENTAL STATUS, UNSPECIFIED Status: Acute Current Visit: Yes Problem List Initiated/Reviewed/Updated: Yes Orders Last 24hrs: Active Orders 24 hr Category Date Time Status Patient Status [ADT] Routine ADT 05/10/21 16:35 Active Ambulate [RC] ASDIRECTED Care 05/10/21 18:24 Active Antiembolic Devices [RC] PER UNIT ROUTINE Care 05/10/21 18:25 Active Blood Glucose Check, Bedside [RC] TIDAC Care 05/10/21 18:24 Active Oxygen Therapy [RC] PRN Care 05/10/21 18:24 Active RT Aerosol Therapy [RC] ASDIRECTED Care 05/10/21 18:26 Active VTE/DVT Education [RC] PER UNIT ROUTINE Care 05/10/21 18:24 Active Vital Signs [RC] Q4H Care 05/10/21 18:24 Active NPO [Nothing Per Oral Diet] [DIET] Diet 05/10/21 Dinner Active CELL COUNT,CSF [BF] Stat Lab 05/10/21 14:46 Received CSF CULTURE [MREF] Stat Lab 05/11/21 11:25 Received GLUCOSE,CSF [BF] Stat Lab 05/10/21 14:46 Received LACTATE DEHYDROGENASE,LDH [CHEM] Routine Lab 05/11/21 05:23 Received PROTEIN,CSF [BF] Stat Lab 05/11/21 11:25 Received VANCOMYCIN TROUGH [CHEM] Timed Lab 05/12/21 19:30 Ordered Acyclovir [Zovirax] 750 mg Med 05/11/21 18:00 Active Sodium Chloride 0.9% [Normal Saline] 250 ml IV Q8H Albuterol/Ipratropium [DuoNeb 3.0-0.5 MG/3 ML] Med 05/10/21 18:24 Active 3 ml NEB Q4HRRT PRN Ampicillin 2 gm Med 05/10/21 19:00 Active Sodium Chloride 0.9% [Normal Saline] 100 ml IV Q4H Cyanocobalamin (Vitamin B12) [Vitamin B12] Med 05/11/21 09:00 Active 1,000 mcg PO DAILY Lactated Ringers [Ringers, Lactated] 1,000 ml Med 05/10/21 18:30 Active IV ASDIRECTED Levothyroxine Med 05/11/21 07:30 Active 50 mcg PO ACBREAKFAST Magnesium Sulfate/Water [Magnesium Sulfate in Water 2 Med 05/11/21 10:16 Activ e GM/50 ML] 2 gm Premix Bag 1 bag IV ONETIME Ondansetron [Zofran] Med 05/10/21 18:24 Active 4 mg IVPUSH Q4H PRN Pantoprazole [ProTONIX IV] 40 mg Med 05/10/21 18:45 Active Sodium Chloride 0.9% [Normal Saline] 10 ml IV DAILY Pharmacy to Dose - Vancomycin Med 05/11/21 18:45 Active 1 dose .XX ASDIRECTED Vancomycin 1.25 gm Med 05/11/21 08:00 Active Sodium Chloride 0.9% [Normal Saline (AdvBag)] 250 ml IV Q12H cefTRIAXone [Rocephin in Dextrose,Iso-Osm 2 GM/50 ML] Med 05/11/21 09:00 Active 2 gm in 50 ml IV Q12H dexAMETHasone [Decadron] Med 05/10/21 19:00 Active 6 mg IVPUSH DAILY Sequential Compression Device [OM.PC] Per Unit Routine Oth 05/10/21 18:24 Ordered Resuscitation Status Routine Resus Stat 05/10/21 18:24 Ordered Medication Orders Albuterol/Ipratropium (Albuterol/Ipratropium 3.0-0.5 Mg/3 Ml Neb Soln) 3 ml NEB Q4HRRT PRN PRN Reason: Shortness Of Breath/wheezing Cyanocobalamin (Cyanocobalamin (Vitamin B12) 500 Mcg Tab) 1,000 mcg PO DAILY [facility] Last Admin: 05/11/21 10:16 Dose: 1,000 mcg Documented by: ASCENCION Dexamethasone (Dexamethasone 4 Mg/Ml Sdv) 6 mg IVPUSH DAILY [facility] Last Admin: 05/11/21 10:19 Dose: 6 mg Documented by: Admin: 05/10/21 19:34 Dose: 6 mg Documented by: JUAN Lactated Ringer's (Ringers, Lactated) 1,000 mls @ 150 mls/hr IV ASDIRECTED DEANNA Last Admin: 05/11/21 01:38 Dose: 150 mls/hr Documented by: Infusion: 05/11/21 01:38 Dose: 150 mls/hr Documented by: Admin: 05/10/21 19:23 Dose: 150 mls/hr Documented by: JOSE Pantoprazole Sodium 40 mg/ (Sodium Chloride) 10 mls @ 200 mls/hr IV DAILY [facility] Last Admin: 05/11/21 10:12 Dose: 200 mls/hr Documented by: Infusion: 05/10/21 19:30 Dose: 200 mls/hr Documented by: Admin: 05/10/21 19:27 Dose: 200 mls/hr Documented by: JUAN Ampicillin Sodium 2 gm/ Sodium (Chloride) 100 mls @ 200 mls/hr IV Q4H [facility] Last Admin: 05/11/21 11:49 Dose: 200 mls/hr Documented by: Infusion: 05/11/21 07:12 Dose: 200 mls/hr Documented by: Admin: 05/11/21 06:42 Dose: 200 mls/hr Documented by: Infusion: 05/11/21 03:54 Dose: 200 mls/hr Documented by: Admin: 05/11/21 03:24 Dose: 200 mls/hr Documented by: Infusion: 05/10/21 23:26 Dose: 200 mls/hr Documented by: Admin: 05/10/21 22:56 Dose: 200 mls/hr Documented by: Infusion: 05/10/21 19:33 Dose: 200 mls/hr Documented by: Admin: 05/10/21 19:03 Dose: 200 mls/hr Documented by: ASCENCION Vancomycin HCl 1.25 gm/ Sodium (Chloride) 250 mls @ 166.667 mls/hr IV Q12H [facility] Last Admin: 05/11/21 08:14 Dose: 166.667 mls/hr Documented by: JOSE Ceftriaxone Sodium/Dextrose (Rocephin In Dextrose,Iso-Osm 2 Gm/50 Ml) 2 gm in 50 mls @ 100 mls/hr IV Q12H [facility] Last Admin: 05/11/21 10:27 Dose: 100 mls/hr Documented by: ASCENCION Acyclovir 750 mg/ Sodium (Chloride) 265 mls @ 265 mls/hr IV Q8H [facility] Magnesium Sulfate 2 gm/ Premix 50 mls @ 12.5 mls/hr IV ONETIME ONE Stop: 05/11/21 14:15 Last Admin: 05/11/21 12:33 Dose: 12.5 mls/hr Documented by: JOSE Levothyroxine Sodium (Levothyroxine 25 Mcg Tab) 50 mcg PO ACBREAKFAST [facility] Last Admin: 05/11/21 08:14 Dose: 50 mcg Documented by: JOSE Ondansetron HCl (Ondansetron 4 Mg/2 Ml Sdv) 4 mg IVPUSH Q4H PRN PRN Reason: Nausea/Vomiting Vancomycin HCl (Pharmacy To Dose - Vancomycin) 1 dose .XX ASDIRECTED [facility] Stop: 05/11/21 18:46 Assessment/Plan Comment:: 61-year-old male admitted for altered mental status and leukocytosis UA negative, no evident source of infection resulting in metabolic encephalopathy Currently being empirically treated for possible bacterial meningitis as well as viral meningitis, although suspicion is low, lumbar puncture was unsuccessful upon admission, spinal tap has been done this morning, follow-up on the lab results of the CSF fluid CT scan of the head noted, possible component of dementia complicated by delirium Continue supportive care Hold Lovenox for now for 24 hours post spinal tap, resume in a.m. Monitor and replete electrolytes as necessary Continue home meds as appropriate once med rec is done
--- NOTE | 2021-05-11 12:54 | PCM.PN ---
- General Info Date of Service: 05/11/21 Admission Dx/Problem (Free Text): Admission Diagnosis/Problem Admission Diagnosis/Problem Mental deterioration Subjective Update: Patient seen at bedside, awake able to have some basic conversation with me, not at his baseline yet per family at bedside. I spoke to the family in detail, and I also went through the records from patient's neurologist, patient has been diagnosed with progressive supranuclear palsy as well as dementia. Patient has had a cognitive decline in last 1 year. Patient sister is the power of contract attorney and she is considering placement at some point of time depending upon the clinical course of the patient during this hospitalization. - Patient Data Vitals - Most Recent: Last Vital Signs Temp 37.4 C 05/11/21 12:00 Pulse 82 05/11/21 12:00 Resp 16 05/11/21 12:00 BP 171/75 H 05/11/21 12:00 Pulse Ox 97 05/11/21 12:00 Weight - Most Recent: 77.467 kg I&O - Last 24 Hours: Intake & Output 05/10/21 05/11/21 05/11/21 22:59 06:59 14:59 Intake Total 2239 Output Total 850 Balance 1389 Lab Results Last 24 Hours: Laboratory Results - last 24 hr 05/10/21 05/10/21 05/10/21 Range/Units 12:25 12:25 12:25 WBC 17.08 H (4.0-11.0) K/uL RBC 4.47 L (4.50-5.90) M/uL Hgb 14.3 (13.0-17.0) g/dL Hct 41.7 (38.0-50.0) % MCV 93.3 (80.0-98.0) fL MCH 32.0 (27.0-32.0) pg MCHC 34.3 (31.0-37.0) g/dL RDW Std Deviation 44.1 (28.0-62.0) fl RDW Coeff of Ananda 13 (11.0-15.0) % Plt Count 221 (150-400) K/uL MPV 11.70 (7.40-12.00) fL Neut % (Auto) 87.5 H (48.0-80.0) % Lymph % (Auto) 5.4 L (16.0-40.0) % Barber % (Auto) 7.0 (0.0-15.0) % Eos % (Auto) 0.0 (0.0-7.0) % Baso % (Auto) 0.1 (0.0-1.5) % Neut # (Auto) 15.0 H (1.4-5.7) K/uL Lymph # (Auto) 0.9 (0.6-2.4) K/uL Barber # (Auto) 1.2 H (0.0-0.8) K/uL Eos # (Auto) 0.0 (0.0-0.7) K/uL Baso # (Auto) 0.0 (0.0-0.1) K/uL Nucleated RBC % 0.0 /100WBC Nucleated RBCs # 0 K/uL INR 0.95 Sodium 138 (136-148) mmol/L Potassium 5.3 H (3.5-5.1) mmol/L Chloride 102 (98-107) mmol/L Carbon Dioxide 29.8 (21.0-32.0) mmol/L BUN 11 (7.0-18.0) mg/dL Creatinine 1.2 (0.8-1.3) mg/dL Est Cr Clr Drug Dosing 63.83 mL/min Estimated GFR (MDRD) > 60.0 ml/min Glucose 127 H (74-106) mg/dL POC Glucose (70-99) mg/dL Lactic Acid (0.4-2.0) mmol/L Calcium 9.1 (8.5-10.1) mg/dL Phosphorus 5.1 H (2.6-4.7) mg/dL Magnesium 2.2 (1.8-2.4) mg/dL Total Bilirubin 2.0 H (0.2-1.0) mg/dL AST 81 H (15-37) IU/L ALT 39 (14-63) IU/L Alkaline Phosphatase 100 (46-116) U/L Ammonia (19-54) ug/dL Creatine Kinase 2697 H (26-308) U/L Total Protein 7.5 (6.4-8.2) g/dL Albumin 3.7 (3.4-5.0) g/dL Globulin 3.8 (2.6-4.0) g/dL Albumin/Globulin Ratio 1.0 (0.9-1.6) TSH 3rd Generation (0.36-3.74) uIU/mL Urine Color Urine Appearance Urine pH (5.0-8.0) Ur Specific [place] (1.001-1.035) Urine Protein (NEGATIVE) mg/dL Urine Glucose (UA) (NEGATIVE) mg/dL Urine Ketones (NEGATIVE) mg/dL Urine Occult Blood (NEGATIVE) Urine Nitrite (NEGATIVE) Urine Bilirubin (NEGATIVE) Urine Urobilinogen (<2.0) EU/dL Ur Leukocyte Esterase (NEGATIVE) Urine RBC (0-2/HPF) Urine WBC (0-5/HPF) Ur Epithelial Cells (NONE-FEW) Amorphous Sediment (NEGATIVE) Urine Bacteria (NEGATIVE) Urine Mucus (NONE-MOD) Urine Opiates Screen (NEGATIVE) Ur Oxycodone Screen (NEGATIVE) Urine Methadone Screen (NEGATIVE) Ur Barbiturates Screen (NEGATIVE) Ur Phencyclidine Scrn (NEGATIVE) Ur Amphetamine Screen (NEGATIVE) U Methamphetamines Scrn (NEGATIVE) U Benzodiazepines Scrn (NEGATIVE) U Cocaine Metab Screen (NEGATIVE) U Marijuana (THC) Screen (NEGATIVE) Ethyl Alcohol < 3.0 mg/dL SARS-CoV-2 RNA (MICHELLE) (NEGATIVE) 05/10/21 05/10/21 05/10/21 Range/Units 12:25 14:18 14:49 WBC (4.0-11.0) K/uL RBC (4.50-5.90) M/uL Hgb (13.0-17.0) g/dL Hct (38.0-50.0) % MCV (80.0-98.0) fL MCH (27.0-32.0) pg MCHC (31.0-37.0) g/dL RDW Std Deviation (28.0-62.0) fl RDW Coeff of Ananda (11.0-15.0) % Plt Count (150-400) K/uL MPV (7.40-12.00) fL Neut % (Auto) (48.0-80.0) % Lymph % (Auto) (16.0-40.0) % Barber % (Auto) (0.0-15.0) % Eos % (Auto) (0.0-7.0) % Baso % (Auto) (0.0-1.5) % Neut # (Auto) (1.4-5.7) K/uL Lymph # (Auto) (0.6-2.4) K/uL Barber # (Auto) (0.0-0.8) K/uL Eos # (Auto) (0.0-0.7) K/uL Baso # (Auto) (0.0-0.1) K/uL Nucleated RBC % /100WBC Nucleated RBCs # K/uL INR Sodium (136-148) mmol/L Potassium (3.5-5.1) mmol/L Chloride (98-107) mmol/L Carbon Dioxide (21.0-32.0) mmol/L BUN (7.0-18.0) mg/dL Creatinine (0.8-1.3) mg/dL Est Cr Clr Drug Dosing mL/min Estimated GFR (MDRD) ml/min Glucose (74-106) mg/dL POC Glucose (70-99) mg/dL Lactic Acid (0.4-2.0) mmol/L Calcium (8.5-10.1) mg/dL Phosphorus (2.6-4.7) mg/dL Magnesium (1.8-2.4) mg/dL Total Bilirubin (0.2-1.0) mg/dL AST (15-37) IU/L ALT (14-63) IU/L Alkaline Phosphatase (46-116) U/L Ammonia 24 (19-54) ug/dL Creatine Kinase (26-308) U/L Total Protein (6.4-8.2) g/dL Albumin (3.4-5.0) g/dL Globulin (2.6-4.0) g/dL Albumin/Globulin Ratio (0.9-1.6) TSH 3rd Generation 1.20 (0.36-3.74) uIU/mL Urine Color Urine Appearance Urine pH (5.0-8.0) Ur Specific [place] (1.001-1.035) Urine Protein (NEGATIVE) mg/dL Urine Glucose (UA) (NEGATIVE) mg/dL Urine Ketones (NEGATIVE) mg/dL Urine Occult Blood (NEGATIVE) Urine Nitrite (NEGATIVE) Urine Bilirubin (NEGATIVE) Urine Urobilinogen (<2.0) EU/dL Ur Leukocyte Esterase (NEGATIVE) Urine RBC (0-2/HPF) Urine WBC (0-5/HPF) Ur Epithelial Cells (NONE-FEW) Amorphous Sediment (NEGATIVE) Urine Bacteria (NEGATIVE) Urine Mucus (NONE-MOD) Urine Opiates Screen NEGATIVE (NEGATIVE) Ur Oxycodone Screen NEGATIVE (NEGATIVE) Urine Methadone Screen NEGATIVE (NEGATIVE) Ur Barbiturates Screen NEGATIVE (NEGATIVE) Ur Phencyclidine Scrn NEGATIVE (NEGATIVE) Ur Amphetamine Screen NEGATIVE (NEGATIVE) U Methamphetamines Scrn NEGATIVE (NEGATIVE) U Benzodiazepines Scrn NEGATIVE (NEGATIVE) U Cocaine Metab Screen NEGATIVE (NEGATIVE) U Marijuana (THC) Screen NEGATIVE (NEGATIVE) Ethyl Alcohol mg/dL SARS-CoV-2 RNA (MICHELLE) (NEGATIVE) 05/10/21 05/10/21 05/10/21 Range/Units 14:49 14:52 16:32 WBC (4.0-11.0) K/uL RBC (4.50-5.90) M/uL Hgb (13.0-17.0) g/dL Hct (38.0-50.0) % MCV (80.0-98.0) fL MCH (27.0-32.0) pg MCHC (31.0-37.0) g/dL RDW Std Deviation (28.0-62.0) fl RDW Coeff of Ananda (11.0-15.0) % Plt Count (150-400) K/uL MPV (7.40-12.00) fL Neut % (Auto) (48.0-80.0) % Lymph % (Auto) (16.0-40.0) % Barber % (Auto) (0.0-15.0) % Eos % (Auto) (0.0-7.0) % Baso % (Auto) (0.0-1.5) % Neut # (Auto) (1.4-5.7) K/uL Lymph # (Auto) (0.6-2.4) K/uL [place] # (Auto) (0.0-0.8) K/uL Eos # (Auto) (0.0-0.7) K/uL Baso # (Auto) (0.0-0.1) K/uL Nucleated RBC % /100WBC Nucleated RBCs # K/uL INR Sodium (136-148) mmol/L Potassium (3.5-5.1) mmol/L Chloride (98-107) mmol/L Carbon Dioxide (21.0-32.0) mmol/L BUN (7.0-18.0) mg/dL Creatinine (0.8-1.3) mg/dL Est Cr Clr Drug Dosing mL/min Estimated GFR (MDRD) ml/min Glucose (74-106) mg/dL POC Glucose (70-99) mg/dL Lactic Acid (0.4-2.0) mmol/L Calcium (8.5-10.1) mg/dL Phosphorus (2.6-4.7) mg/dL Magnesium (1.8-2.4) mg/dL Total Bilirubin (0.2-1.0) mg/dL AST (15-37) IU/L ALT (14-63) IU/L Alkaline Phosphatase (46-116) U/L Ammonia (19-54) ug/dL Creatine Kinase (26-308) U/L Total Protein (6.4-8.2) g/dL Albumin (3.4-5.0) g/dL Globulin (2.6-4.0) g/dL Albumin/Globulin Ratio (0.9-1.6) TSH 3rd Generation (0.36-3.74) uIU/mL Urine Color YELLOW YELLOW Urine Appearance CLEAR SLT CLOUDY Urine pH 6.0 6.0 (5.0-8.0) Ur Specific [place] >= 1.030 >= 1.030 (1.001-1.035) Urine Protein NEGATIVE NEGATIVE (NEGATIVE) mg/dL Urine Glucose (UA) NEGATIVE NEGATIVE (NEGATIVE) mg/dL Urine Ketones NEGATIVE NEGATIVE (NEGATIVE) mg/dL Urine Occult Blood TRACE-INTACT H MODERATE H (NEGATIVE) Urine Nitrite NEGATIVE NEGATIVE (NEGATIVE) Urine Bilirubin NEGATIVE NEGATIVE (NEGATIVE) Urine Urobilinogen 0.2 1.0 (<2.0) EU/dL Ur Leukocyte Esterase NEGATIVE NEGATIVE (NEGATIVE) Urine RBC 0-1 0-1 (0-2/HPF) Urine WBC 0-1 0-1 (0-5/HPF) Ur Epithelial Cells RARE RARE (NONE-FEW) Amorphous Sediment MODERATE MODERATE (NEGATIVE) Urine Bacteria RARE FEW (NEGATIVE) Urine Mucus RARE RARE (NONE-MOD) Urine Opiates Screen (NEGATIVE) Ur Oxycodone Screen (NEGATIVE) Urine Methadone Screen (NEGATIVE) Ur Barbiturates Screen (NEGATIVE) Ur Phencyclidine Scrn (NEGATIVE) Ur Amphetamine Screen (NEGATIVE) U Methamphetamines Scrn (NEGATIVE) U Benzodiazepines Scrn (NEGATIVE) U Cocaine Metab Screen (NEGATIVE) U Marijuana (THC) Screen (NEGATIVE) Ethyl Alcohol mg/dL SARS-CoV-2 RNA (MICHELLE) NEGATIVE (NEGATIVE) 05/10/21 05/10/21 05/11/21 Range/Units 17:25 19:15 00:15 WBC (4.0-11.0) K/uL RBC (4.50-5.90) M/uL Hgb (13.0-17.0) g/dL Hct (38.0-50.0) % MCV (80.0-98.0) fL MCH (27.0-32.0) pg MCHC (31.0-37.0) g/dL RDW Std Deviation (28.0-62.0) fl RDW Coeff of Ananda (11.0-15.0) % Plt Count (150-400) K/uL MPV (7.40-12.00) fL Neut % (Auto) (48.0-80.0) % Lymph % (Auto) (16.0-40.0) % Barber % (Auto) (0.0-15.0) % Eos % (Auto) (0.0-7.0) % Baso % (Auto) (0.0-1.5) % Neut # (Auto) (1.4-5.7) K/uL Lymph # (Auto) (0.6-2.4) K/uL [place] # (Auto) (0.0-0.8) K/uL Eos # (Auto) (0.0-0.7) K/uL Baso # (Auto) (0.0-0.1) K/uL Nucleated RBC % /100WBC Nucleated RBCs # K/uL INR Sodium (136-148) mmol/L Potassium (3.5-5.1) mmol/L Chloride (98-107) mmol/L Carbon Dioxide (21.0-32.0) mmol/L BUN (7.0-18.0) mg/dL Creatinine (0.8-1.3) mg/dL Est Cr Clr Drug Dosing mL/min Estimated GFR (MDRD) ml/min Glucose (74-106) mg/dL POC Glucose (70-99) mg/dL Lactic Acid 2.7 H* 2.1 H* (0.4-2.0) mmol/L Calcium (8.5-10.1) mg/dL Phosphorus (2.6-4.7) mg/dL Magnesium (1.8-2.4) mg/dL Total Bilirubin (0.2-1.0) mg/dL AST (15-37) IU/L ALT (14-63) IU/L Alkaline Phosphatase (46-116) U/L Ammonia (19-54) ug/dL Creatine Kinase 3792 H (26-308) U/L Total Protein (6.4-8.2) g/dL Albumin (3.4-5.0) g/dL Globulin (2.6-4.0) g/dL Albumin/Globulin Ratio (0.9-1.6) TSH 3rd Generation (0.36-3.74) uIU/mL Urine Color Urine Appearance Urine pH (5.0-8.0) Ur Specific [place] (1.001-1.035) Urine Protein (NEGATIVE) mg/dL Urine Glucose (UA) (NEGATIVE) mg/dL Urine Ketones (NEGATIVE) mg/dL Urine Occult Blood (NEGATIVE) Urine Nitrite (NEGATIVE) Urine Bilirubin (NEGATIVE) Urine Urobilinogen (<2.0) EU/dL Ur Leukocyte Esterase (NEGATIVE) Urine RBC (0-2/HPF) Urine WBC (0-5/HPF) Ur Epithelial Cells (NONE-FEW) Amorphous Sediment (NEGATIVE) Urine Bacteria (NEGATIVE) Urine Mucus (NONE-MOD) Urine Opiates Screen (NEGATIVE) Ur Oxycodone Screen (NEGATIVE) Urine Methadone Screen (NEGATIVE) Ur Barbiturates Screen (NEGATIVE) Ur Phencyclidine Scrn (NEGATIVE) Ur Amphetamine Screen (NEGATIVE) U Methamphetamines Scrn (NEGATIVE) U Benzodiazepines Scrn (NEGATIVE) U Cocaine Metab Screen (NEGATIVE) U Marijuana (THC) Screen (NEGATIVE) Ethyl Alcohol mg/dL SARS-CoV-2 RNA (MICHELLE) (NEGATIVE) 05/11/21 05/11/21 05/11/21 Range/Units 01:39 05:23 05:23 WBC 11.98 H (4.0-11.0) K/uL RBC 3.65 L (4.50-5.90) M/uL Hgb 11.7 L (13.0-17.0) g/dL Hct 33.9 L (38.0-50.0) % MCV 92.9 (80.0-98.0) fL MCH 32.1 H (27.0-32.0) pg MCHC 34.5 (31.0-37.0) g/dL RDW Std Deviation 43.1 (28.0-62.0) fl RDW Coeff of Ananda 13 (11.0-15.0) % Plt Count 176 (150-400) K/uL MPV 12.00 (7.40-12.00) fL Neut % (Auto) 91.9 H (48.0-80.0) % Lymph % (Auto) 4.3 L (16.0-40.0) % [place] % (Auto) 3.8 (0.0-15.0) % Eos % (Auto) 0.0 (0.0-7.0) % Baso % (Auto) 0.0 (0.0-1.5) % Neut # (Auto) 11.0 H (1.4-5.7) K/uL Lymph # (Auto) 0.5 L (0.6-2.4) K/uL [place] # (Auto) 0.5 (0.0-0.8) K/uL Eos # (Auto) 0.0 (0.0-0.7) K/uL Baso # (Auto) 0.0 (0.0-0.1) K/uL Nucleated RBC % 0.0 /100WBC Nucleated RBCs # 0 K/uL INR Sodium 135 L (136-148) mmol/L Potassium 4.2 (3.5-5.1) mmol/L Chloride 102 (98-107) mmol/L Carbon Dioxide 24.8 (21.0-32.0) mmol/L BUN 14 (7.0-18.0) mg/dL Creatinine 1.1 (0.8-1.3) mg/dL Est Cr Clr Drug Dosing 71.89 mL/min Estimated GFR (MDRD) > 60.0 ml/min Glucose 150 H (74-106) mg/dL POC Glucose 152 H (70-99) mg/dL Lactic Acid (0.4-2.0) mmol/L Calcium 7.8 L (8.5-10.1) mg/dL Phosphorus 2.6 (2.6-4.7) mg/dL Magnesium 1.7 L (1.8-2.4) mg/dL Total Bilirubin 1.6 H (0.2-1.0) mg/dL AST 73 H (15-37) IU/L ALT 33 (14-63) IU/L Alkaline Phosphatase 69 (46-116) U/L Ammonia (19-54) ug/dL Creatine Kinase (26-308) U/L Total Protein 6.0 L (6.4-8.2) g/dL Albumin 2.9 L (3.4-5.0) g/dL Globulin 3.1 (2.6-4.0) g/dL Albumin/Globulin Ratio 0.9 (0.9-1.6) TSH 3rd Generation (0.36-3.74) uIU/mL Urine Color Urine Appearance Urine pH (5.0-8.0) Ur Specific [place] (1.001-1.035) Urine Protein (NEGATIVE) mg/dL Urine Glucose (UA) (NEGATIVE) mg/dL Urine Ketones (NEGATIVE) mg/dL Urine Occult Blood (NEGATIVE) Urine Nitrite (NEGATIVE) Urine Bilirubin (NEGATIVE) Urine Urobilinogen (<2.0) EU/dL Ur Leukocyte Esterase (NEGATIVE) Urine RBC (0-2/HPF) Urine WBC (0-5/HPF) Ur Epithelial Cells (NONE-FEW) Amorphous Sediment (NEGATIVE) Urine Bacteria (NEGATIVE) Urine Mucus (NONE-MOD) Urine Opiates Screen (NEGATIVE) Ur Oxycodone Screen (NEGATIVE) Urine Methadone Screen (NEGATIVE) Ur Barbiturates Screen (NEGATIVE) Ur Phencyclidine Scrn (NEGATIVE) Ur Amphetamine Screen (NEGATIVE) U Methamphetamines Scrn (NEGATIVE) U Benzodiazepines Scrn (NEGATIVE) U Cocaine Metab Screen (NEGATIVE) U Marijuana (THC) Screen (NEGATIVE) Ethyl Alcohol mg/dL SARS-CoV-2 RNA (MICHELLE) (NEGATIVE) 05/11/21 Range/Units 05:23 WBC (4.0-11.0) K/uL RBC (4.50-5.90) M/uL Hgb (13.0-17.0) g/dL Hct (38.0-50.0) % MCV (80.0-98.0) fL MCH (27.0-32.0) pg MCHC (31.0-37.0) g/dL RDW Std Deviation (28.0-62.0) fl RDW Coeff of Ananda (11.0-15.0) % Plt Count (150-400) K/uL MPV (7.40-12.00) fL Neut % (Auto) (48.0-80.0) % Lymph % (Auto) (16.0-40.0) % Barber % (Auto) (0.0-15.0) % Eos % (Auto) (0.0-7.0) % Baso % (Auto) (0.0-1.5) % Neut # (Auto) (1.4-5.7) K/uL Lymph # (Auto) (0.6-2.4) K/uL [place] # (Auto) (0.0-0.8) K/uL Eos # (Auto) (0.0-0.7) K/uL Baso # (Auto) (0.0-0.1) K/uL Nucleated RBC % /100WBC Nucleated RBCs # K/uL INR Sodium (136-148) mmol/L Potassium (3.5-5.1) mmol/L Chloride (98-107) mmol/L Carbon Dioxide (21.0-32.0) mmol/L BUN (7.0-18.0) mg/dL Creatinine (0.8-1.3) mg/dL Est Cr Clr Drug Dosing mL/min Estimated GFR (MDRD) ml/min Glucose (74-106) mg/dL POC Glucose (70-99) mg/dL Lactic Acid (0.4-2.0) mmol/L Calcium (8.5-10.1) mg/dL Phosphorus (2.6-4.7) mg/dL Magnesium (1.8-2.4) mg/dL Total Bilirubin (0.2-1.0) mg/dL AST (15-37) IU/L ALT (14-63) IU/L Alkaline Phosphatase (46-116) U/L Ammonia (19-54) ug/dL Creatine Kinase 2203 H (26-308) U/L Total Protein (6.4-8.2) g/dL Albumin (3.4-5.0) g/dL Globulin (2.6-4.0) g/dL Albumin/Globulin Ratio (0.9-1.6) TSH 3rd Generation (0.36-3.74) uIU/mL Urine Color Urine Appearance Urine pH (5.0-8.0) Ur Specific [place] (1.001-1.035) Urine Protein (NEGATIVE) mg/dL Urine Glucose (UA) (NEGATIVE) mg/dL Urine Ketones (NEGATIVE) mg/dL Urine Occult Blood (NEGATIVE) Urine Nitrite (NEGATIVE) Urine Bilirubin (NEGATIVE) Urine Urobilinogen (<2.0) EU/dL Ur Leukocyte Esterase (NEGATIVE) Urine RBC (0-2/HPF) Urine WBC (0-5/HPF) Ur Epithelial Cells (NONE-FEW) Amorphous Sediment (NEGATIVE) Urine Bacteria (NEGATIVE) Urine Mucus (NONE-MOD) Urine Opiates Screen (NEGATIVE) Ur Oxycodone Screen (NEGATIVE) Urine Methadone Screen (NEGATIVE) Ur Barbiturates Screen (NEGATIVE) Ur Phencyclidine Scrn (NEGATIVE) Ur Amphetamine Screen (NEGATIVE) U Methamphetamines Scrn (NEGATIVE) U Benzodiazepines Scrn (NEGATIVE) U Cocaine Metab Screen (NEGATIVE) U Marijuana (THC) Screen (NEGATIVE) Ethyl Alcohol mg/dL SARS-CoV-2 RNA (MICHELLE) (NEGATIVE) Med Orders - Current: Current Medications Albuterol/Ipratropium (Albuterol/Ipratropium 3.0-0.5 Mg/3 Ml Neb Soln) 3 ml NEB Q4HRRT PRN PRN Reason: Shortness Of Breath/wheezing Cyanocobalamin (Cyanocobalamin (Vitamin B12) 500 Mcg Tab) 1,000 mcg PO DAILY DEANNA Last Admin: 05/11/21 10:16 Dose: 1,000 mcg Documented by: Dexamethasone (Dexamethasone 4 Mg/Ml Sdv) 6 mg IVPUSH DAILY DEANNA Last Admin: 05/11/21 10:19 Dose: 6 mg Documented by: Lactated Ringer's (Ringers, Lactated) 1,000 mls @ 150 mls/hr IV ASDIRECTED [facility] Last Admin: 05/11/21 01:38 Dose: 150 mls/hr Documented by: Pantoprazole Sodium 40 mg/ (Sodium Chloride) 10 mls @ 200 mls/hr IV DAILY DEANNA Last Admin: 05/11/21 10:12 Dose: 200 mls/hr Documented by: Ampicillin Sodium 2 gm/ Sodium (Chloride) 100 mls @ 200 mls/hr IV Q4H [facility] Last Admin: 05/11/21 11:49 Dose: 200 mls/hr Documented by: Vancomycin HCl 1.25 gm/ Sodium (Chloride) 250 mls @ 166.667 mls/hr IV Q12H [facility] Last Admin: 05/11/21 08:14 Dose: 166.667 mls/hr Documented by: Ceftriaxone Sodium/Dextrose (Rocephin In Dextrose,Iso-Osm 2 Gm/50 Ml) 2 gm in 50 mls @ 100 mls/hr IV Q12H [facility] Last Admin: 05/11/21 10:27 Dose: 100 mls/hr Documented by: Acyclovir 750 mg/ Sodium (Chloride) 265 mls @ 265 mls/hr IV Q8H [facility] Magnesium Sulfate 2 gm/ Premix 50 mls @ 12.5 mls/hr IV ONETIME ONE Stop: 05/11/21 14:15 Last Admin: 05/11/21 12:33 Dose: 12.5 mls/hr Documented by: Levothyroxine Sodium (Levothyroxine 25 Mcg Tab) 50 mcg PO ACBREAKFAST [facility] Last Admin: 05/11/21 08:14 Dose: 50 mcg Documented by: Ondansetron HCl (Ondansetron 4 Mg/2 Ml Sdv) 4 mg IVPUSH Q4H PRN PRN Reason: Nausea/Vomiting Vancomycin HCl (Pharmacy To Dose - Vancomycin) 1 dose .XX ASDIRECTED [facility] Stop: 05/11/21 18:46 Discontinued Medications Ceftriaxone Sodium (Ceftriaxone 1 Gm Vial) 2 gm IVPUSH ONETIME ONE Stop: 05/10/21 17:09 Last Admin: 05/10/21 17:53 Dose: 2 gm Documented by: Diphenhydramine HCl (Diphenhydramine 50 Mg/Ml Sdv) 50 mg IVPUSH ONETIME ONE Stop: 05/10/21 20:03 Last Admin: 05/10/21 20:11 Dose: 50 mg Documented by: Haloperidol Lactate (Haloperidol Lactate 5 Mg/Ml Sdv) 5 mg IM ONETIME ONE Stop: 05/10/21 20:02 Last Admin: 05/10/21 20:12 Dose: 5 mg Documented by: Heparin Sodium (Porcine) (Heparin Sodium 5,000 Units/Ml Vial) 5,000 units SUBCUT Q8H [facility] Last Admin: 05/11/21 11:56 Dose: Not Given Documented by: Sodium Chloride (Normal Saline) 1,000 mls @ 999 mls/hr IV .BOLUS ONE Stop: 05/10/21 14:51 Last Admin: 05/10/21 14:33 Dose: 999 mls/hr Documented by: Ampicillin Sodium 2 gm/ Sodium (Chloride) 100 mls @ 200 mls/hr IV Q6H [facility] Last Admin: 05/10/21 19:17 Dose: Not Given Documented by: Vancomycin HCl 2 gm/ Premix 400 mls @ 200 mls/hr IV STAT ONE Stop: 05/10/21 19:07 Last Admin: 05/10/21 19:32 Dose: 200 mls/hr Documented by: Sodium Chloride (Normal Saline) 1,000 mls @ 999 mls/hr IV .BOLUS ONE Stop: 05/10/21 18:14 Last Admin: 05/10/21 17:49 Dose: 999 mls/hr Documented by: Ceftriaxone Sodium 2 gm/ (Sodium Chloride) 50 mls @ 100 mls/hr IV Q24H [facility] Lactated Ringer's (Ringers, Lactated) 1,000 mls @ 999 mls/hr IV .BOLUS ONE Stop: 05/11/21 00:05 Last Admin: 05/11/21 00:15 Dose: 999 mls/hr Documented by: Acyclovir 750 mg/ Sodium (Chloride) 265 mls @ 250 mls/hr IV Q8H DEANNA Stop: 05/11/21 09:00 Last Admin: 05/11/21 11:09 Dose: 250 mls/hr Documented by: Lidocaine HCl (Lidocaine 1% 5 Ml Sdv) 5 ml INJECT ONETIME ONE Stop: 05/10/21 14:51 Last Admin: 05/10/21 17:45 Dose: Not Given Documented by: Lorazepam (Lorazepam 2 Mg/Ml Sdv) 2 mg IVPUSH ONETIME ONE Stop: 05/10/21 20:01 Last Admin: 05/10/21 20:11 Dose: 2 mg Documented by: Pantoprazole Sodium (Pantoprazole 40 Mg Vial) 40 mg IV DAILY [facility] Pantoprazole Sodium (Pantoprazole 40 Mg Vial) 40 mg IVPUSH DAILY [facility] - Exam General: No Acute Distress. No: Alert, Oriented Neck: Supple, Trachea Midline Lungs: Clear to Auscultation, Rub Cardiovascular: Regular Rate, Regular Rhythm GI/Abdominal Exam: Normal Bowel Sounds, Soft, Non-Tender Extremities: Normal Inspection, Normal Range of Motion Skin: Warm Neurological: Sensation Intact. No: Normal Gait, Normal Speech, Cranial Nerves Intact (opthalmoplegia) Psy/Mental Status: Labile Mood. No: Alert, Normal Affect, Depressed, Agitated, Suicidal Ideation - Patient Data Lab Results Last 24 hrs: Laboratory Results - last 24 hr 05/10/21 05/10/21 05/10/21 Range/Units 12:25 12:25 12:25 WBC 17.08 H (4.0-11.0) K/uL RBC 4.47 L (4.50-5.90) M/uL Hgb 14.3 (13.0-17.0) g/dL Hct 41.7 (38.0-50.0) % MCV 93.3 (80.0-98.0) fL MCH 32.0 (27.0-32.0) pg MCHC 34.3 (31.0-37.0) g/dL RDW Std Deviation 44.1 (28.0-62.0) fl RDW Coeff of Ananda 13 (11.0-15.0) % Plt Count 221 (150-400) K/uL MPV 11.70 (7.40-12.00) fL Neut % (Auto) 87.5 H (48.0-80.0) % Lymph % (Auto) 5.4 L (16.0-40.0) % Barber % (Auto) 7.0 (0.0-15.0) % Eos % (Auto) 0.0 (0.0-7.0) % Baso % (Auto) 0.1 (0.0-1.5) % Neut # (Auto) 15.0 H (1.4-5.7) K/uL Lymph # (Auto) 0.9 (0.6-2.4) K/uL Barber # (Auto) 1.2 H (0.0-0.8) K/uL Eos # (Auto) 0.0 (0.0-0.7) K/uL Baso # (Auto) 0.0 (0.0-0.1) K/uL Nucleated RBC % 0.0 /100WBC Nucleated RBCs # 0 K/uL INR 0.95 Sodium 138 (136-148) mmol/L Potassium 5.3 H (3.5-5.1) mmol/L Chloride 102 (98-107) mmol/L Carbon Dioxide 29.8 (21.0-32.0) mmol/L BUN 11 (7.0-18.0) mg/dL Creatinine 1.2 (0.8-1.3) mg/dL Est Cr Clr Drug Dosing 63.83 mL/min Estimated GFR (MDRD) > 60.0 ml/min Glucose 127 H (74-106) mg/dL POC Glucose (70-99) mg/dL Lactic Acid (0.4-2.0) mmol/L Calcium 9.1 (8.5-10.1) mg/dL Phosphorus 5.1 H (2.6-4.7) mg/dL Magnesium 2.2 (1.8-2.4) mg/dL Total Bilirubin 2.0 H (0.2-1.0) mg/dL AST 81 H (15-37) IU/L ALT 39 (14-63) IU/L Alkaline Phosphatase 100 (46-116) U/L Ammonia (19-54) ug/dL Creatine Kinase 2697 H (26-308) U/L Total Protein 7.5 (6.4-8.2) g/dL Albumin 3.7 (3.4-5.0) g/dL Globulin 3.8 (2.6-4.0) g/dL Albumin/Globulin Ratio 1.0 (0.9-1.6) TSH 3rd Generation (0.36-3.74) uIU/mL Urine Color Urine Appearance Urine pH (5.0-8.0) Ur Specific [place] (1.001-1.035) Urine Protein (NEGATIVE) mg/dL Urine Glucose (UA) (NEGATIVE) mg/dL Urine Ketones (NEGATIVE) mg/dL Urine Occult Blood (NEGATIVE) Urine Nitrite (NEGATIVE) Urine Bilirubin (NEGATIVE) Urine Urobilinogen (<2.0) EU/dL Ur Leukocyte Esterase (NEGATIVE) Urine RBC (0-2/HPF) Urine WBC (0-5/HPF) Ur Epithelial Cells (NONE-FEW) Amorphous Sediment (NEGATIVE) Urine Bacteria (NEGATIVE) Urine Mucus (NONE-MOD) Urine Opiates Screen (NEGATIVE) Ur Oxycodone Screen (NEGATIVE) Urine Methadone Screen (NEGATIVE) Ur Barbiturates Screen (NEGATIVE) Ur Phencyclidine Scrn (NEGATIVE) Ur Amphetamine Screen (NEGATIVE) U Methamphetamines Scrn (NEGATIVE) U Benzodiazepines Scrn (NEGATIVE) U Cocaine Metab Screen (NEGATIVE) U Marijuana (THC) Screen (NEGATIVE) Ethyl Alcohol < 3.0 mg/dL SARS-CoV-2 RNA (MICHELLE) (NEGATIVE) 05/10/21 05/10/21 05/10/21 Range/Units 12:25 14:18 14:49 WBC (4.0-11.0) K/uL RBC (4.50-5.90) M/uL Hgb (13.0-17.0) g/dL Hct (38.0-50.0) % MCV (80.0-98.0) fL MCH (27.0-32.0) pg MCHC (31.0-37.0) g/dL RDW Std Deviation (28.0-62.0) fl RDW Coeff of Ananda (11.0-15.0) % Plt Count (150-400) K/uL MPV (7.40-12.00) fL Neut % (Auto) (48.0-80.0) % Lymph % (Auto) (16.0-40.0) % Barber % (Auto) (0.0-15.0) % Eos % (Auto) (0.0-7.0) % Baso % (Auto) (0.0-1.5) % Neut # (Auto) (1.4-5.7) K/uL Lymph # (Auto) (0.6-2.4) K/uL [place] # (Auto) (0.0-0.8) K/uL Eos # (Auto) (0.0-0.7) K/uL Baso # (Auto) (0.0-0.1) K/uL Nucleated RBC % /100WBC Nucleated RBCs # K/uL INR Sodium (136-148) mmol/L Potassium (3.5-5.1) mmol/L Chloride (98-107) mmol/L Carbon Dioxide (21.0-32.0) mmol/L BUN (7.0-18.0) mg/dL Creatinine (0.8-1.3) mg/dL Est Cr Clr Drug Dosing mL/min Estimated GFR (MDRD) ml/min Glucose (74-106) mg/dL POC Glucose (70-99) mg/dL Lactic Acid (0.4-2.0) mmol/L Calcium (8.5-10.1) mg/dL Phosphorus (2.6-4.7) mg/dL Magnesium (1.8-2.4) mg/dL Total Bilirubin (0.2-1.0) mg/dL AST (15-37) IU/L ALT (14-63) IU/L Alkaline Phosphatase (46-116) U/L Ammonia 24 (19-54) ug/dL Creatine Kinase (26-308) U/L Total Protein (6.4-8.2) g/dL Albumin (3.4-5.0) g/dL Globulin (2.6-4.0) g/dL Albumin/Globulin Ratio (0.9-1.6) TSH 3rd Generation 1.20 (0.36-3.74) uIU/mL Urine Color Urine Appearance Urine pH (5.0-8.0) Ur Specific [place] (1.001-1.035) Urine Protein (NEGATIVE) mg/dL Urine Glucose (UA) (NEGATIVE) mg/dL Urine Ketones (NEGATIVE) mg/dL Urine Occult Blood (NEGATIVE) Urine Nitrite (NEGATIVE) Urine Bilirubin (NEGATIVE) Urine Urobilinogen (<2.0) EU/dL Ur Leukocyte Esterase (NEGATIVE) Urine RBC (0-2/HPF) Urine WBC (0-5/HPF) Ur Epithelial Cells (NONE-FEW) Amorphous Sediment (NEGATIVE) Urine Bacteria (NEGATIVE) Urine Mucus (NONE-MOD) Urine Opiates Screen NEGATIVE (NEGATIVE) Ur Oxycodone Screen NEGATIVE (NEGATIVE) Urine Methadone Screen NEGATIVE (NEGATIVE) Ur Barbiturates Screen NEGATIVE (NEGATIVE) Ur Phencyclidine Scrn NEGATIVE (NEGATIVE) Ur Amphetamine Screen NEGATIVE (NEGATIVE) U Methamphetamines Scrn NEGATIVE (NEGATIVE) U Benzodiazepines Scrn NEGATIVE (NEGATIVE) U Cocaine Metab Screen NEGATIVE (NEGATIVE) U Marijuana (THC) Screen NEGATIVE (NEGATIVE) Ethyl Alcohol mg/dL SARS-CoV-2 RNA (MICHELLE) (NEGATIVE) 05/10/21 05/10/21 05/10/21 Range/Units 14:49 14:52 16:32 WBC (4.0-11.0) K/uL RBC (4.50-5.90) M/uL Hgb (13.0-17.0) g/dL Hct (38.0-50.0) % MCV (80.0-98.0) fL MCH (27.0-32.0) pg MCHC (31.0-37.0) g/dL RDW Std Deviation (28.0-62.0) fl RDW Coeff of Ananda (11.0-15.0) % Plt Count (150-400) K/uL MPV (7.40-12.00) fL Neut % (Auto) (48.0-80.0) % Lymph % (Auto) (16.0-40.0) % Barber % (Auto) (0.0-15.0) % Eos % (Auto) (0.0-7.0) % Baso % (Auto) (0.0-1.5) % Neut # (Auto) (1.4-5.7) K/uL Lymph # (Auto) (0.6-2.4) K/uL Barber # (Auto) (0.0-0.8) K/uL Eos # (Auto) (0.0-0.7) K/uL Baso # (Auto) (0.0-0.1) K/uL Nucleated RBC % /100WBC Nucleated RBCs # K/uL INR Sodium (136-148) mmol/L Potassium (3.5-5.1) mmol/L Chloride (98-107) mmol/L Carbon Dioxide (21.0-32.0) mmol/L BUN (7.0-18.0) mg/dL Creatinine (0.8-1.3) mg/dL Est Cr Clr Drug Dosing mL/min Estimated GFR (MDRD) ml/min Glucose (74-106) mg/dL POC Glucose (70-99) mg/dL Lactic Acid (0.4-2.0) mmol/L Calcium (8.5-10.1) mg/dL Phosphorus (2.6-4.7) mg/dL Magnesium (1.8-2.4) mg/dL Total Bilirubin (0.2-1.0) mg/dL AST (15-37) IU/L ALT (14-63) IU/L Alkaline Phosphatase (46-116) U/L Ammonia (19-54) ug/dL Creatine Kinase (26-308) U/L Total Protein (6.4-8.2) g/dL Albumin (3.4-5.0) g/dL Globulin (2.6-4.0) g/dL Albumin/Globulin Ratio (0.9-1.6) TSH 3rd Generation (0.36-3.74) uIU/mL Urine Color YELLOW YELLOW Urine Appearance CLEAR SLT CLOUDY Urine pH 6.0 6.0 (5.0-8.0) Ur Specific [place] >= 1.030 >= 1.030 (1.001-1.035) Urine Protein NEGATIVE NEGATIVE (NEGATIVE) mg/dL Urine Glucose (UA) NEGATIVE NEGATIVE (NEGATIVE) mg/dL Urine Ketones NEGATIVE NEGATIVE (NEGATIVE) mg/dL Urine Occult Blood TRACE-INTACT H MODERATE H (NEGATIVE) Urine Nitrite NEGATIVE NEGATIVE (NEGATIVE) Urine Bilirubin NEGATIVE NEGATIVE (NEGATIVE) Urine Urobilinogen 0.2 1.0 (<2.0) EU/dL Ur Leukocyte Esterase NEGATIVE NEGATIVE (NEGATIVE) Urine RBC 0-1 0-1 (0-2/HPF) Urine WBC 0-1 0-1 (0-5/HPF) Ur Epithelial Cells RARE RARE (NONE-FEW) Amorphous Sediment MODERATE MODERATE (NEGATIVE) Urine Bacteria RARE FEW (NEGATIVE) Urine Mucus RARE RARE (NONE-MOD) Urine Opiates Screen (NEGATIVE) Ur Oxycodone Screen (NEGATIVE) Urine Methadone Screen (NEGATIVE) Ur Barbiturates Screen (NEGATIVE) Ur Phencyclidine Scrn (NEGATIVE) Ur Amphetamine Screen (NEGATIVE) U Methamphetamines Scrn (NEGATIVE) U Benzodiazepines Scrn (NEGATIVE) U Cocaine Metab Screen (NEGATIVE) U Marijuana (THC) Screen (NEGATIVE) Ethyl Alcohol mg/dL SARS-CoV-2 RNA (MICHELLE) NEGATIVE (NEGATIVE) 05/10/21 05/10/21 05/11/21 Range/Units 17:25 19:15 00:15 WBC (4.0-11.0) K/uL RBC (4.50-5.90) M/uL Hgb (13.0-17.0) g/dL Hct (38.0-50.0) % MCV (80.0-98.0) fL MCH (27.0-32.0) pg MCHC (31.0-37.0) g/dL RDW Std Deviation (28.0-62.0) fl RDW Coeff of Ananda (11.0-15.0) % Plt Count (150-400) K/uL MPV (7.40-12.00) fL Neut % (Auto) (48.0-80.0) % Lymph % (Auto) (16.0-40.0) % Barber % (Auto) (0.0-15.0) % Eos % (Auto) (0.0-7.0) % Baso % (Auto) (0.0-1.5) % Neut # (Auto) (1.4-5.7) K/uL Lymph # (Auto) (0.6-2.4) K/uL Barber # (Auto) (0.0-0.8) K/uL Eos # (Auto) (0.0-0.7) K/uL Baso # (Auto) (0.0-0.1) K/uL Nucleated RBC % /100WBC Nucleated RBCs # K/uL INR Sodium (136-148) mmol/L Potassium (3.5-5.1) mmol/L Chloride (98-107) mmol/L Carbon Dioxide (21.0-32.0) mmol/L BUN (7.0-18.0) mg/dL Creatinine (0.8-1.3) mg/dL Est Cr Clr Drug Dosing mL/min Estimated GFR (MDRD) ml/min Glucose (74-106) mg/dL POC Glucose (70-99) mg/dL Lactic Acid 2.7 H* 2.1 H* (0.4-2.0) mmol/L Calcium (8.5-10.1) mg/dL Phosphorus (2.6-4.7) mg/dL Magnesium (1.8-2.4) mg/dL Total Bilirubin (0.2-1.0) mg/dL AST (15-37) IU/L ALT (14-63) IU/L Alkaline Phosphatase (46-116) U/L Ammonia (19-54) ug/dL Creatine Kinase 3792 H (26-308) U/L Total Protein (6.4-8.2) g/dL Albumin (3.4-5.0) g/dL Globulin (2.6-4.0) g/dL Albumin/Globulin Ratio (0.9-1.6) TSH 3rd Generation (0.36-3.74) uIU/mL Urine Color Urine Appearance Urine pH (5.0-8.0) Ur Specific [place] (1.001-1.035) Urine Protein (NEGATIVE) mg/dL Urine Glucose (UA) (NEGATIVE) mg/dL Urine Ketones (NEGATIVE) mg/dL Urine Occult Blood (NEGATIVE) Urine Nitrite (NEGATIVE) Urine Bilirubin (NEGATIVE) Urine Urobilinogen (<2.0) EU/dL Ur Leukocyte Esterase (NEGATIVE) Urine RBC (0-2/HPF) Urine WBC (0-5/HPF) Ur Epithelial Cells (NONE-FEW) Amorphous Sediment (NEGATIVE) Urine Bacteria (NEGATIVE) Urine Mucus (NONE-MOD) Urine Opiates Screen (NEGATIVE) Ur Oxycodone Screen (NEGATIVE) Urine Methadone Screen (NEGATIVE) Ur Barbiturates Screen (NEGATIVE) Ur Phencyclidine Scrn (NEGATIVE) Ur Amphetamine Screen (NEGATIVE) U Methamphetamines Scrn (NEGATIVE) U Benzodiazepines Scrn (NEGATIVE) U Cocaine Metab Screen (NEGATIVE) U Marijuana (THC) Screen (NEGATIVE) Ethyl Alcohol mg/dL SARS-CoV-2 RNA (MICHELLE) (NEGATIVE) 05/11/21 05/11/21 05/11/21 Range/Units 01:39 05:23 05:23 WBC 11.98 H (4.0-11.0) K/uL RBC 3.65 L (4.50-5.90) M/uL Hgb 11.7 L (13.0-17.0) g/dL Hct 33.9 L (38.0-50.0) % MCV 92.9 (80.0-98.0) fL MCH 32.1 H (27.0-32.0) pg MCHC 34.5 (31.0-37.0) g/dL RDW Std Deviation 43.1 (28.0-62.0) fl RDW Coeff of Ananda 13 (11.0-15.0) % Plt Count 176 (150-400) K/uL MPV 12.00 (7.40-12.00) fL Neut % (Auto) 91.9 H (48.0-80.0) % Lymph % (Auto) 4.3 L (16.0-40.0) % Barber % (Auto) 3.8 (0.0-15.0) % Eos % (Auto) 0.0 (0.0-7.0) % Baso % (Auto) 0.0 (0.0-1.5) % Neut # (Auto) 11.0 H (1.4-5.7) K/uL Lymph # (Auto) 0.5 L (0.6-2.4) K/uL [place] # (Auto) 0.5 (0.0-0.8) K/uL Eos # (Auto) 0.0 (0.0-0.7) K/uL Baso # (Auto) 0.0 (0.0-0.1) K/uL Nucleated RBC % 0.0 /100WBC Nucleated RBCs # 0 K/uL INR Sodium 135 L (136-148) mmol/L Potassium 4.2 (3.5-5.1) mmol/L Chloride 102 (98-107) mmol/L Carbon Dioxide 24.8 (21.0-32.0) mmol/L BUN 14 (7.0-18.0) mg/dL Creatinine 1.1 (0.8-1.3) mg/dL Est Cr Clr Drug Dosing 71.89 mL/min Estimated GFR (MDRD) > 60.0 ml/min Glucose 150 H (74-106) mg/dL POC Glucose 152 H (70-99) mg/dL Lactic Acid (0.4-2.0) mmol/L Calcium 7.8 L (8.5-10.1) mg/dL Phosphorus 2.6 (2.6-4.7) mg/dL Magnesium 1.7 L (1.8-2.4) mg/dL Total Bilirubin 1.6 H (0.2-1.0) mg/dL AST 73 H (15-37) IU/L ALT 33 (14-63) IU/L Alkaline Phosphatase 69 (46-116) U/L Ammonia (19-54) ug/dL Creatine Kinase (26-308) U/L Total Protein 6.0 L (6.4-8.2) g/dL Albumin 2.9 L (3.4-5.0) g/dL Globulin 3.1 (2.6-4.0) g/dL Albumin/Globulin Ratio 0.9 (0.9-1.6) TSH 3rd Generation (0.36-3.74) uIU/mL Urine Color Urine Appearance Urine pH (5.0-8.0) Ur Specific [place] (1.001-1.035) Urine Protein (NEGATIVE) mg/dL Urine Glucose (UA) (NEGATIVE) mg/dL Urine Ketones (NEGATIVE) mg/dL Urine Occult Blood (NEGATIVE) Urine Nitrite (NEGATIVE) Urine Bilirubin (NEGATIVE) Urine Urobilinogen (<2.0) EU/dL Ur Leukocyte Esterase (NEGATIVE) Urine RBC (0-2/HPF) Urine WBC (0-5/HPF) Ur Epithelial Cells (NONE-FEW) Amorphous Sediment (NEGATIVE) Urine Bacteria (NEGATIVE) Urine Mucus (NONE-MOD) Urine Opiates Screen (NEGATIVE) Ur Oxycodone Screen (NEGATIVE) Urine Methadone Screen (NEGATIVE) Ur Barbiturates Screen (NEGATIVE) Ur Phencyclidine Scrn (NEGATIVE) Ur Amphetamine Screen (NEGATIVE) U Methamphetamines Scrn (NEGATIVE) U Benzodiazepines Scrn (NEGATIVE) U Cocaine Metab Screen (NEGATIVE) U Marijuana (THC) Screen (NEGATIVE) Ethyl Alcohol mg/dL SARS-CoV-2 RNA (MICHELLE) (NEGATIVE) 05/11/21 Range/Units 05:23 WBC (4.0-11.0) K/uL RBC (4.50-5.90) M/uL Hgb (13.0-17.0) g/dL Hct (38.0-50.0) % MCV (80.0-98.0) fL MCH (27.0-32.0) pg MCHC (31.0-37.0) g/dL RDW Std Deviation (28.0-62.0) fl RDW Coeff of Ananda (11.0-15.0) % Plt Count (150-400) K/uL MPV (7.40-12.00) fL Neut % (Auto) (48.0-80.0) % Lymph % (Auto) (16.0-40.0) % Barber % (Auto) (0.0-15.0) % Eos % (Auto) (0.0-7.0) % Baso % (Auto) (0.0-1.5) % Neut # (Auto) (1.4-5.7) K/uL Lymph # (Auto) (0.6-2.4) K/uL [place] # (Auto) (0.0-0.8) K/uL Eos # (Auto) (0.0-0.7) K/uL Baso # (Auto) (0.0-0.1) K/uL Nucleated RBC % /100WBC Nucleated RBCs # K/uL INR Sodium (136-148) mmol/L Potassium (3.5-5.1) mmol/L Chloride (98-107) mmol/L Carbon Dioxide (21.0-32.0) mmol/L BUN (7.0-18.0) mg/dL Creatinine (0.8-1.3) mg/dL Est Cr Clr Drug Dosing mL/min Estimated GFR (MDRD) ml/min Glucose (74-106) mg/dL POC Glucose (70-99) mg/dL Lactic Acid (0.4-2.0) mmol/L Calcium (8.5-10.1) mg/dL Phosphorus (2.6-4.7) mg/dL Magnesium (1.8-2.4) mg/dL Total Bilirubin (0.2-1.0) mg/dL AST (15-37) IU/L ALT (14-63) IU/L Alkaline Phosphatase (46-116) U/L Ammonia (19-54) ug/dL Creatine Kinase 2203 H (26-308) U/L Total Protein (6.4-8.2) g/dL Albumin (3.4-5.0) g/dL Globulin (2.6-4.0) g/dL Albumin/Globulin Ratio (0.9-1.6) TSH 3rd Generation (0.36-3.74) uIU/mL Urine Color Urine Appearance Urine pH (5.0-8.0) Ur Specific [place] (1.001-1.035) Urine Protein (NEGATIVE) mg/dL Urine Glucose (UA) (NEGATIVE) mg/dL Urine Ketones (NEGATIVE) mg/dL Urine Occult Blood (NEGATIVE) Urine Nitrite (NEGATIVE) Urine Bilirubin (NEGATIVE) Urine Urobilinogen (<2.0) EU/dL Ur Leukocyte Esterase (NEGATIVE) Urine RBC (0-2/HPF) Urine WBC (0-5/HPF) Ur Epithelial Cells (NONE-FEW) Amorphous Sediment (NEGATIVE) Urine Bacteria (NEGATIVE) Urine Mucus (NONE-MOD) Urine Opiates Screen (NEGATIVE) Ur Oxycodone Screen (NEGATIVE) Urine Methadone Screen (NEGATIVE) Ur Barbiturates Screen (NEGATIVE) Ur Phencyclidine Scrn (NEGATIVE) Ur Amphetamine Screen (NEGATIVE) U Methamphetamines Scrn (NEGATIVE) U Benzodiazepines Scrn (NEGATIVE) U Cocaine Metab Screen (NEGATIVE) U Marijuana (THC) Screen (NEGATIVE) Ethyl Alcohol mg/dL SARS-CoV-2 RNA (MICHELLE) (NEGATIVE) Result Diagrams: 05/11/21 05:23 05/11/21 05:23 Sepsis Event Note - Evaluation Sepsis Screening Result: No Definite Risk - Focused Exam Vital Signs: Vital Signs Temp Pulse Resp BP Pulse Ox 05/11/21 12:00 37.4 C 82 16 171/75 H 97 05/11/21 08:00 37.1 C 81 18 148/75 H 95 05/11/21 03:27 36.6 C 92 18 130/80 95 - Problem List & Annotations (1) Ataxia SNOMED Code(s): 94513329 Code(s): R27.0 - ATAXIA, UNSPECIFIED Status: Acute Current Visit: Yes (2) Cognitive impairment SNOMED Code(s): 222803991 Code(s): R41.89 - OTH SYMPTOMS AND SIGNS W COGNITIVE FUNCTIONS AND AWARENESS Status: Acute Current Visit: Yes (3) Dysarthria SNOMED Code(s): 0655791 Code(s): R47.1 - DYSARTHRIA AND ANARTHRIA Status: Acute Current Visit: Yes (4) Hypothyroidism SNOMED Code(s): 66558997 Code(s): E03.9 - HYPOTHYROIDISM, UNSPECIFIED Status: Acute Current Visit: Yes (5) Neurodegenerative disorder SNOMED Code(s): 738622631 Code(s): G31.9 - DEGENERATIVE DISEASE OF NERVOUS SYSTEM, UNSPECIFIED Status: Acute Current Visit: Yes (6) Altered mental status SNOMED Code(s): 165641826 Code(s): R41.82 - ALTERED MENTAL STATUS, UNSPECIFIED Status: Acute Current Visit: Yes - Problem List Review Problem List Initiated/Reviewed/Updated: Yes - My Orders Last 24 Hours: My Active Orders 05/10/21 Dinner NPO [Nothing Per Oral Diet] [DIET] 05/10/21 18:24 Ambulate [RC] ASDIRECTED Blood Glucose Check, Bedside [RC] TIDAC Oxygen Therapy [RC] PRN VTE/DVT Education [RC] PER UNIT ROUTINE Vital Signs [RC] Q4H Albuterol/Ipratropium [DuoNeb 3.0-0.5 MG/3 ML] 3 ml NEB Q4HRRT PRN Ondansetron [Zofran] 4 mg IVPUSH Q4H PRN Sequential Compression Device [OM.PC] Per Unit Routine Resuscitation Status Routine 05/10/21 18:25 Antiembolic Devices [RC] PER UNIT ROUTINE 05/10/21 18:26 RT Aerosol Therapy [RC] ASDIRECTED 05/10/21 18:30 Lactated Ringers [Ringers, Lactated] 1,000 ml IV ASDIRECTED 05/10/21 18:45 Pantoprazole [ProTONIX IV] 40 mg Sodium Chloride 0.9% [Normal Saline] 10 ml IV DAILY 05/10/21 19:00 Ampicillin 2 gm Sodium Chloride 0.9% [Normal Saline] 100 ml IV Q4H dexAMETHasone [Decadron] 6 mg IVPUSH DAILY 05/11/21 07:30 Levothyroxine 50 mcg PO ACBREAKFAST 05/11/21 08:00 Vancomycin 1.25 gm Sodium Chloride 0.9% [Normal Saline (AdvBag)] 250 ml IV Q12H 05/11/21 09:00 Cyanocobalamin (Vitamin B12) [Vitamin B12] 1,000 mcg PO DAILY cefTRIAXone [Rocephin in Dextrose,Iso-Osm 2 GM/50 ML] 2 gm in 50 ml IV Q12H 05/11/21 12:37 LACTATE DEHYDROGENASE,LDH [CHEM] Routine 05/11/21 18:00 Acyclovir [Zovirax] 750 mg Sodium Chloride 0.9% [Normal Saline] 250 ml IV Q8H 05/11/21 18:45 Pharmacy to Dose - Vancomycin 1 dose .XX ASDIRECTED - Plan Plan:: 61-year-old male admitted for altered mental status and leukocytosis UA negative, no evident source of infection resulting in metabolic encephalopathy Currently being empirically treated for possible bacterial meningitis as well as viral meningitis, although suspicion is low, lumbar puncture was unsuccessful upon admission, spinal tap has been done this morning, follow-up on the lab results of the CSF fluid CT scan of the head noted, possible component of dementia complicated by delirium Continue supportive care Hold Lovenox for now for 24 hours post spinal tap, resume in a.m. Monitor and replete electrolytes as necessary Continue home meds as appropriate
[2021-05-11] MEDS: Acetaminophen 325 MG Tab PO PRN (18:13)
[2021-05-11] MEDS ORDERED: Haloperidol Lactate 5 MG/ML SDV IM ONE (20:24)
[2021-05-11] MEDS ORDERED: LORazepam 2 MG/ML SDV IVPUSH ONE (20:25)
[2021-05-11] MEDS ORDERED: diphenhydrAMINE 50 MG/ML SDV IVPUSH ONE (20:26)
[2021-05-12] MEDS: Ampicillin 2 GM in Sodium Chloride 0.9% 100 ML IV SCH ×6 (03:26→22:48)
[2021-05-12] MEDS: Lactated Ringers 1,000 ML IV SCH ×3 (04:51→23:44)
[2021-05-12 06:38] LABS: BLOOD UREA NITROGEN,BUN 17 mg/dL (7.0-18.0); CARBON DIOXIDE,CO2 27.1 mmol/L (21.0-32.0); CHLORIDE,CL 100 mmol/L (98-107); GLUCOSE RANDOM 117 mg/dL (74-106); POTASSIUM,K 4.3 mmol/L (3.5-5.1); SODIUM,NA 131 mmol/L (136-148)
[2021-05-12] MEDS: Levothyroxine 25 MCG Tab PO SCH (07:05)
[2021-05-12] MEDS: Pantoprazole 40 MG in Sodium Chloride 0.9% 10 ML IV SCH (08:32)
[2021-05-12] MEDS: cefTRIAXone 2 GM/50 ML BAG IV SCH ×2 (09:20→21:06)
[2021-05-12] MEDS: Cyanocobalamin (Vitamin B12) 500 MCG Tab PO SCH (09:58)
[2021-05-12] MEDS: Dexamethasone 4 MG/ML SDV IVPUSH SCH (10:36)
[2021-05-12] MEDS: Acetaminophen 325 MG Tab PO PRN ×2 (11:36→15:27)
[2021-05-12] MEDS: Dexamethasone 10 MG/ML SDV IVPUSH SCH ×3 (11:36→23:42)
--- NOTE | 2021-05-12 13:11 | PCM.PN ---
- General Info Date of Service: 05/12/21 Admission Dx/Problem (Free Text): Admission Diagnosis/Problem Admission Diagnosis/Problem Mental deterioration Subjective Update: Patient seen at bedside, awake, answering some basic questions and following basic commands, family at bedside. I spoke to the family in detail, and I also went through the records from patient's neurologist, patient has been diagnosed with progressive supranuclear palsy as well as dementia. Patient has had a cognitive decline in last 1 year. Patient sister is the power of regulatory attorney and she is considering placement at some point of time depending upon the clinical course of the patient during this hospitalization. Functional Status: Reports: Urinating. Denies: Ambulating - Review of Systems General: Reports: Weakness, Fatigue, Malaise. Denies: Fever Cardiovascular: Denies: Chest Pain, Palpitations, Dyspnea on Exertion Gastrointestinal: Denies: Abdominal Pain, Constipation, Decreased Appetite Genitourinary: Denies: Dysuria, Frequency, Burning Musculoskeletal: Denies: Neck Pain, Shoulder Pain, Arm Pain Skin: Denies: Cyanosis, Jaundice, Mottled Neurological: Reports: Confusion, Headache, Trouble Speaking, Difficulty Walking, Change in Speech. Denies: Dizziness, Numbness, Paresthesia, Seizure, Syncope - Patient Data Vitals - Most Recent: Last Vital Signs Temp 36.6 C 05/12/21 12:05 Pulse 69 05/12/21 12:05 Resp 16 05/12/21 12:05 BP 149/89 H 05/12/21 12:05 Pulse Ox 998 H 05/12/21 12:05 Weight - Most Recent: 77.467 kg I&O - Last 24 Hours: Intake & Output 05/11/21 05/12/21 05/12/21 22:59 06:59 14:59 Intake Total 1517 200 Output Total 850 1000 Balance 667 -800 Lab Results Last 24 Hours: Laboratory Results - last 24 hr 05/11/21 05/11/21 05/12/21 Range/Units 11:25 18:47 05:28 WBC 12.86 H (4.0-11.0) K/uL RBC 3.56 L (4.50-5.90) M/uL Hgb 11.4 L (13.0-17.0) g/dL Hct 32.3 L (38.0-50.0) % MCV 90.7 (80.0-98.0) fL MCH 32.0 (27.0-32.0) pg MCHC 35.3 (31.0-37.0) g/dL RDW Std Deviation 41.3 (28.0-62.0) fl RDW Coeff of Ananda 12 (11.0-15.0) % Plt Count 163 (150-400) K/uL MPV 11.10 (7.40-12.00) fL Neut % (Auto) 83.5 H (48.0-80.0) % Lymph % (Auto) 7.2 L (16.0-40.0) % [place] % (Auto) 9.3 (0.0-15.0) % Eos % (Auto) 0.0 (0.0-7.0) % Baso % (Auto) 0.0 (0.0-1.5) % Neut # (Auto) 10.7 H (1.4-5.7) K/uL Lymph # (Auto) 0.9 (0.6-2.4) K/uL [place] # (Auto) 1.2 H (0.0-0.8) K/uL Eos # (Auto) 0.0 (0.0-0.7) K/uL Baso # (Auto) 0.0 (0.0-0.1) K/uL Nucleated RBC % 0.0 /100WBC Nucleated RBCs # 0 K/uL Sodium (136-148) mmol/L Potassium (3.5-5.1) mmol/L Chloride (98-107) mmol/L Carbon Dioxide (21.0-32.0) mmol/L BUN (7.0-18.0) mg/dL Creatinine (0.8-1.3) mg/dL Est Cr Clr Drug Dosing mL/min Estimated GFR (MDRD) ml/min Glucose (74-106) mg/dL POC Glucose 146 H (70-99) mg/dL Lactic Acid (0.4-2.0) mmol/L Calcium (8.5-10.1) mg/dL Phosphorus (2.6-4.7) mg/dL Magnesium (1.8-2.4) mg/dL Total Bilirubin (0.2-1.0) mg/dL AST (15-37) IU/L ALT (14-63) IU/L Alkaline Phosphatase (46-116) U/L Creatine Kinase (26-308) U/L Total Protein (6.4-8.2) g/dL Albumin (3.4-5.0) g/dL Globulin (2.6-4.0) g/dL Albumin/Globulin Ratio (0.9-1.6) CSF Appearance CLEAR CSF Color COLORLESS CSF WBC 7 H (0-5) /uL CSF RBC 6 H (0-0) /uL CSF Mononuclear Cells 100.0 % CSF Polymorphonuclear 0.0 % 05/12/21 05/12/21 05/12/21 Range/Units 05:28 05:28 07:17 WBC (4.0-11.0) K/uL RBC (4.50-5.90) M/uL Hgb (13.0-17.0) g/dL Hct (38.0-50.0) % MCV (80.0-98.0) fL MCH (27.0-32.0) pg MCHC (31.0-37.0) g/dL RDW Std Deviation (28.0-62.0) fl RDW Coeff of Ananda (11.0-15.0) % Plt Count (150-400) K/uL MPV (7.40-12.00) fL Neut % (Auto) (48.0-80.0) % Lymph % (Auto) (16.0-40.0) % [place] % (Auto) (0.0-15.0) % Eos % (Auto) (0.0-7.0) % Baso % (Auto) (0.0-1.5) % Neut # (Auto) (1.4-5.7) K/uL Lymph # (Auto) (0.6-2.4) K/uL [place] # (Auto) (0.0-0.8) K/uL Eos # (Auto) (0.0-0.7) K/uL Baso # (Auto) (0.0-0.1) K/uL Nucleated RBC % /100WBC Nucleated RBCs # K/uL Sodium 131 L (136-148) mmol/L Potassium 4.3 (3.5-5.1) mmol/L Chloride 100 (98-107) mmol/L Carbon Dioxide 27.1 (21.0-32.0) mmol/L BUN 17 (7.0-18.0) mg/dL Creatinine 1.0 (0.8-1.3) mg/dL Est Cr Clr Drug Dosing 79.08 mL/min Estimated GFR (MDRD) > 60.0 ml/min Glucose 117 H (74-106) mg/dL POC Glucose 110 H (70-99) mg/dL Lactic Acid 1.3 (0.4-2.0) mmol/L Calcium 7.7 L (8.5-10.1) mg/dL Phosphorus 2.9 (2.6-4.7) mg/dL Magnesium 1.9 (1.8-2.4) mg/dL Total Bilirubin 1.3 H (0.2-1.0) mg/dL AST 65 H (15-37) IU/L ALT 38 (14-63) IU/L Alkaline Phosphatase 66 (46-116) U/L Creatine Kinase 1637 H (26-308) U/L Total Protein 5.9 L (6.4-8.2) g/dL Albumin 2.8 L (3.4-5.0) g/dL Globulin 3.1 (2.6-4.0) g/dL Albumin/Globulin Ratio 0.9 (0.9-1.6) CSF Appearance CSF Color CSF WBC (0-5) /uL CSF RBC (0-0) /uL CSF Mononuclear Cells % CSF Polymorphonuclear % Med Orders - Current: Current Medications Acetaminophen (Acetaminophen 325 Mg Tab) 650 mg PO Q4H PRN PRN Reason: Pain Last Admin: 05/12/21 11:36 Dose: 650 mg Documented by: Albuterol/Ipratropium (Albuterol/Ipratropium 3.0-0.5 Mg/3 Ml Neb Soln) 3 ml NEB Q4HRRT PRN PRN Reason: Shortness Of Breath/wheezing Cyanocobalamin (Cyanocobalamin (Vitamin B12) 500 Mcg Tab) 1,000 mcg PO DAILY [facility] Last Admin: 05/12/21 09:58 Dose: 1,000 mcg Documented by: Dexamethasone (Dexamethasone 10 Mg/Ml Sdv) 10 mg IVPUSH Q6H [facility] Last Admin: 05/12/21 11:36 Dose: 10 mg Documented by: Lactated Ringer's (Ringers, Lactated) 1,000 mls @ 150 mls/hr IV ASDIRECTED [facility] Last Admin: 05/12/21 04:51 Dose: 150 mls/hr Documented by: Pantoprazole Sodium 40 mg/ (Sodium Chloride) 10 mls @ 200 mls/hr IV DAILY [facility] Last Admin: 05/12/21 08:32 Dose: 200 mls/hr Documented by: Ampicillin Sodium 2 gm/ Sodium (Chloride) 100 mls @ 200 mls/hr IV Q4H [facility] Last Admin: 05/12/21 11:35 Dose: 200 mls/hr Documented by: Vancomycin HCl 1.25 gm/ Sodium (Chloride) 250 mls @ 166.667 mls/hr IV Q12H [facility] Last Admin: 05/12/21 08:43 Dose: 166.667 mls/hr Documented by: Ceftriaxone Sodium/Dextrose (Rocephin In Dextrose,Iso-Osm 2 Gm/50 Ml) 2 gm in 50 mls @ 100 mls/hr IV Q12H [facility] Last Admin: 05/12/21 09:20 Dose: 100 mls/hr Documented by: Acyclovir 750 mg/ Sodium (Chloride) 265 mls @ 265 mls/hr IV Q8H [facility] Last Admin: 05/12/21 10:36 Dose: 265 mls/hr Documented by: Levothyroxine Sodium (Levothyroxine 25 Mcg Tab) 50 mcg PO ACBREAKFAST [facility] Last Admin: 05/12/21 07:05 Dose: 50 mcg Documented by: Ondansetron HCl (Ondansetron 4 Mg/2 Ml Sdv) 4 mg IVPUSH Q4H PRN PRN Reason: Nausea/Vomiting Discontinued Medications Ceftriaxone Sodium (Ceftriaxone 1 Gm Vial) 2 gm IVPUSH ONETIME ONE Stop: 05/10/21 17:09 Last Admin: 05/10/21 17:53 Dose: 2 gm Documented by: Dexamethasone (Dexamethasone 4 Mg/Ml Sdv) 6 mg IVPUSH DAILY [facility] Last Admin: 05/12/21 10:36 Dose: Not Given Documented by: Diphenhydramine HCl (Diphenhydramine 50 Mg/Ml Sdv) 50 mg IVPUSH ONETIME ONE Stop: 05/10/21 20:03 Last Admin: 05/10/21 20:11 Dose: 50 mg Documented by: Diphenhydramine HCl (Diphenhydramine 50 Mg/Ml Sdv) 50 mg IVPUSH ONETIME ONE Stop: 05/11/21 20:27 Last Admin: 05/11/21 21:59 Dose: 50 mg Documented by: Haloperidol Lactate (Haloperidol Lactate 5 Mg/Ml Sdv) 5 mg IM ONETIME ONE Stop: 05/10/21 20:02 Last Admin: 05/10/21 20:12 Dose: 5 mg Documented by: Haloperidol Lactate (Haloperidol Lactate 5 Mg/Ml Sdv) 5 mg IM ONETIME ONE Stop: 05/11/21 20:25 Last Admin: 05/11/21 21:58 Dose: 5 mg Documented by: Heparin Sodium (Porcine) (Heparin Sodium 5,000 Units/Ml Vial) 5,000 units SUBCUT Q8H [facility] Last Admin: 05/11/21 11:56 Dose: Not Given Documented by: Sodium Chloride (Normal Saline) 1,000 mls @ 999 mls/hr IV .BOLUS ONE Stop: 05/10/21 14:51 Last Admin: 05/10/21 14:33 Dose: 999 mls/hr Documented by: Ampicillin Sodium 2 gm/ Sodium (Chloride) 100 mls @ 200 mls/hr IV Q6H [facility] Last Admin: 05/10/21 19:17 Dose: Not Given Documented by: Vancomycin HCl 2 gm/ Premix 400 mls @ 200 mls/hr IV STAT ONE Stop: 05/10/21 19:07 Last Admin: 05/10/21 19:32 Dose: 200 mls/hr Documented by: Sodium Chloride (Normal Saline) 1,000 mls @ 999 mls/hr IV .BOLUS ONE Stop: 05/10/21 18:14 Last Admin: 05/10/21 17:49 Dose: 999 mls/hr Documented by: Ceftriaxone Sodium 2 gm/ (Sodium Chloride) 50 mls @ 100 mls/hr IV Q24H [facility] Lactated Ringer's (Ringers, Lactated) 1,000 mls @ 999 mls/hr IV .BOLUS ONE Stop: 05/11/21 00:05 Last Admin: 05/11/21 00:15 Dose: 999 mls/hr Documented by: Acyclovir 750 mg/ Sodium (Chloride) 265 mls @ 250 mls/hr IV Q8H [facility] Stop: 05/11/21 09:00 Last Admin: 05/11/21 11:09 Dose: 250 mls/hr Documented by: Magnesium Sulfate 2 gm/ Premix 50 mls @ 12.5 mls/hr IV ONETIME ONE Stop: 05/11/21 14:15 Last Admin: 05/11/21 12:33 Dose: 12.5 mls/hr Documented by: Lidocaine HCl (Lidocaine 1% 5 Ml Sdv) 5 ml INJECT ONETIME ONE Stop: 05/10/21 14:51 Last Admin: 05/10/21 17:45 Dose: Not Given Documented by: Lorazepam (Lorazepam 2 Mg/Ml Sdv) 2 mg IVPUSH ONETIME ONE Stop: 05/10/21 20:01 Last Admin: 05/10/21 20:11 Dose: 2 mg Documented by: Lorazepam (Lorazepam 2 Mg/Ml Sdv) 2 mg IVPUSH ONETIME ONE Stop: 05/11/21 20:26 Last Admin: 05/11/21 21:59 Dose: 2 mg Documented by: Pantoprazole Sodium (Pantoprazole 40 Mg Vial) 40 mg IV DAILY [facility] Pantoprazole Sodium (Pantoprazole 40 Mg Vial) 40 mg IVPUSH DAILY [facility] Vancomycin HCl (Pharmacy To Dose - Vancomycin) 1 dose .XX ASDIRECTED [facility] Stop: 05/11/21 18:46 - Exam General: Alert, Cooperative, Mild Distress. No: Oriented Lungs: Clear to Auscultation, Normal Respiratory Effort Cardiovascular: Regular Rate, Regular Rhythm GI/Abdominal Exam: Normal Bowel Sounds, Soft, Non-Tender Back Exam: No: CVA Tenderness (L), CVA Tenderness (R) Extremities: Normal Inspection, Non-Tender, Limited Range of Motion Skin: Warm - Patient Data Lab Results Last 24 hrs: Laboratory Results - last 24 hr 05/11/21 05/11/21 05/12/21 Range/Units 11:25 18:47 05:28 WBC 12.86 H (4.0-11.0) K/uL RBC 3.56 L (4.50-5.90) M/uL Hgb 11.4 L (13.0-17.0) g/dL Hct 32.3 L (38.0-50.0) % MCV 90.7 (80.0-98.0) fL MCH 32.0 (27.0-32.0) pg MCHC 35.3 (31.0-37.0) g/dL RDW Std Deviation 41.3 (28.0-62.0) fl RDW Coeff of Ananda 12 (11.0-15.0) % Plt Count 163 (150-400) K/uL MPV 11.10 (7.40-12.00) fL Neut % (Auto) 83.5 H (48.0-80.0) % Lymph % (Auto) 7.2 L (16.0-40.0) % [place] % (Auto) 9.3 (0.0-15.0) % Eos % (Auto) 0.0 (0.0-7.0) % Baso % (Auto) 0.0 (0.0-1.5) % Neut # (Auto) 10.7 H (1.4-5.7) K/uL Lymph # (Auto) 0.9 (0.6-2.4) K/uL [place] # (Auto) 1.2 H (0.0-0.8) K/uL Eos # (Auto) 0.0 (0.0-0.7) K/uL Baso # (Auto) 0.0 (0.0-0.1) K/uL Nucleated RBC % 0.0 /100WBC Nucleated RBCs # 0 K/uL Sodium (136-148) mmol/L Potassium (3.5-5.1) mmol/L Chloride (98-107) mmol/L Carbon Dioxide (21.0-32.0) mmol/L BUN (7.0-18.0) mg/dL Creatinine (0.8-1.3) mg/dL Est Cr Clr Drug Dosing mL/min Estimated GFR (MDRD) ml/min Glucose (74-106) mg/dL POC Glucose 146 H (70-99) mg/dL Lactic Acid (0.4-2.0) mmol/L Calcium (8.5-10.1) mg/dL Phosphorus (2.6-4.7) mg/dL Magnesium (1.8-2.4) mg/dL Total Bilirubin (0.2-1.0) mg/dL AST (15-37) IU/L ALT (14-63) IU/L Alkaline Phosphatase (46-116) U/L Creatine Kinase (26-308) U/L Total Protein (6.4-8.2) g/dL Albumin (3.4-5.0) g/dL Globulin (2.6-4.0) g/dL Albumin/Globulin Ratio (0.9-1.6) CSF Appearance CLEAR CSF Color COLORLESS CSF WBC 7 H (0-5) /uL CSF RBC 6 H (0-0) /uL CSF Mononuclear Cells 100.0 % CSF Polymorphonuclear 0.0 % 05/12/21 05/12/21 05/12/21 Range/Units 05:28 05:28 07:17 WBC (4.0-11.0) K/uL RBC (4.50-5.90) M/uL Hgb (13.0-17.0) g/dL Hct (38.0-50.0) % MCV (80.0-98.0) fL MCH (27.0-32.0) pg MCHC (31.0-37.0) g/dL RDW Std Deviation (28.0-62.0) fl RDW Coeff of Ananda (11.0-15.0) % Plt Count (150-400) K/uL MPV (7.40-12.00) fL Neut % (Auto) (48.0-80.0) % Lymph % (Auto) (16.0-40.0) % [place] % (Auto) (0.0-15.0) % Eos % (Auto) (0.0-7.0) % Baso % (Auto) (0.0-1.5) % Neut # (Auto) (1.4-5.7) K/uL Lymph # (Auto) (0.6-2.4) K/uL [place] # (Auto) (0.0-0.8) K/uL Eos # (Auto) (0.0-0.7) K/uL Baso # (Auto) (0.0-0.1) K/uL Nucleated RBC % /100WBC Nucleated RBCs # K/uL Sodium 131 L (136-148) mmol/L Potassium 4.3 (3.5-5.1) mmol/L Chloride 100 (98-107) mmol/L Carbon Dioxide 27.1 (21.0-32.0) mmol/L BUN 17 (7.0-18.0) mg/dL Creatinine 1.0 (0.8-1.3) mg/dL Est Cr Clr Drug Dosing 79.08 mL/min Estimated GFR (MDRD) > 60.0 ml/min Glucose 117 H (74-106) mg/dL POC Glucose 110 H (70-99) mg/dL Lactic Acid 1.3 (0.4-2.0) mmol/L Calcium 7.7 L (8.5-10.1) mg/dL Phosphorus 2.9 (2.6-4.7) mg/dL Magnesium 1.9 (1.8-2.4) mg/dL Total Bilirubin 1.3 H (0.2-1.0) mg/dL AST 65 H (15-37) IU/L ALT 38 (14-63) IU/L Alkaline Phosphatase 66 (46-116) U/L Creatine Kinase 1637 H (26-308) U/L Total Protein 5.9 L (6.4-8.2) g/dL Albumin 2.8 L (3.4-5.0) g/dL Globulin 3.1 (2.6-4.0) g/dL Albumin/Globulin Ratio 0.9 (0.9-1.6) CSF Appearance CSF Color CSF WBC (0-5) /uL CSF RBC (0-0) /uL CSF Mononuclear Cells % CSF Polymorphonuclear % Result Diagrams: 05/12/21 05:28 05/12/21 05:28 Sepsis Event Note - Evaluation Sepsis Screening Result: No Definite Risk - Focused Exam Vital Signs: Vital Signs Temp Pulse Resp BP Pulse Ox 05/12/21 12:05 36.6 C 69 16 149/89 H 998 H 05/12/21 06:51 36.4 C 71 18 148/85 H 98 05/12/21 03:34 36.4 C 76 16 146/90 H 97 - Problem List & Annotations (1) Ataxia SNOMED Code(s): 80574041 Code(s): R27.0 - ATAXIA, UNSPECIFIED Status: Acute Current Visit: Yes (2) Cognitive impairment SNOMED Code(s): 103066825 Code(s): R41.89 - OTH SYMPTOMS AND SIGNS W COGNITIVE FUNCTIONS AND AWARENESS Status: Acute Current Visit: Yes (3) Dysarthria SNOMED Code(s): 1184156 Code(s): R47.1 - DYSARTHRIA AND ANARTHRIA Status: Acute Current Visit: Yes (4) Hypothyroidism SNOMED Code(s): 19563157 Code(s): E03.9 - HYPOTHYROIDISM, UNSPECIFIED Status: Acute Current Visit: Yes (5) Neurodegenerative disorder SNOMED Code(s): 807505882 Code(s): G31.9 - DEGENERATIVE DISEASE OF NERVOUS SYSTEM, UNSPECIFIED Status: Acute Current Visit: Yes (6) Altered mental status SNOMED Code(s): 425697463 Code(s): R41.82 - ALTERED MENTAL STATUS, UNSPECIFIED Status: Acute Current Visit: Yes - Problem List Review Problem List Initiated/Reviewed/Updated: Yes - My Orders Last 24 Hours: My Active Orders 05/11/21 13:01 Nursing Bedside Swallow Screen [RC] ASDIRECTED 05/11/21 Dinner Soft Diet [DIET] 05/11/21 17:48 Acetaminophen [TylenoL] 650 mg PO Q4H PRN 05/11/21 17:49 Isolation [COMM] Routine 05/11/21 18:00 Acyclovir [Zovirax] 750 mg Sodium Chloride 0.9% [Normal Saline] 250 ml IV Q8H - Plan Plan:: 61-year-old male admitted for altered mental status and leukocytosis UA negative, no evident source of infection resulting in metabolic encephalopathy Currently being empirically treated for possible meningitis, csf noted, leaning towards viral meningitis/ encephalitis, awaiting gram stain and culture CT scan of the head noted, possible component of dementia complicated by delirium Continue supportive care resume lovenox today Monitor and replete electrolytes as necessary Continue home meds as appropriate sister is planning for out of city rehab facility upon dc as local rehab is not taking new patients currently, SW on board
[2021-05-12] MEDS ORDERED: diphenhydrAMINE 50 MG/ML SDV IVPUSH PRN (16:52)
[2021-05-12] MEDS: LORazepam 2 MG/ML SDV IVPUSH PRN ×2 (17:11→22:46)
[2021-05-12] MEDS: VANCOmycin 1.5 GM/300 ML 1.5 GM in Premix Bag 1 BAG IV SCH (21:01)
[2021-05-12] MEDS ORDERED: OLANZapine 10 MG Vial IM ONE (23:32)
[2021-05-12] MEDS ORDERED: Water For Injection, Sterile 20 ML ONE (23:56)
[2021-05-13] MEDS: Ampicillin 2 GM in Sodium Chloride 0.9% 100 ML IV SCH ×2 (02:31→06:29)
[2021-05-13] MEDS: Dexamethasone 10 MG/ML SDV IVPUSH SCH (06:22)
[2021-05-13] MEDS: Levothyroxine 25 MCG Tab PO SCH (06:32)
[2021-05-13 06:33] LABS: BLOOD UREA NITROGEN,BUN 17 mg/dL (7.0-18.0); CARBON DIOXIDE,CO2 24.3 mmol/L (21.0-32.0); CHLORIDE,CL 97 mmol/L (98-107); GLUCOSE RANDOM 126 mg/dL (74-106); POTASSIUM,K 4.3 mmol/L (3.5-5.1); SODIUM,NA 132 mmol/L (136-148)
[2021-05-13] MEDS: Enoxaparin 40 MG/0.4 ML Syringe SUBCUT SCH (09:18)
[2021-05-13] MEDS: Cyanocobalamin (Vitamin B12) 500 MCG Tab PO SCH (09:18)
[2021-05-13] MEDS: Pantoprazole 40 MG in Sodium Chloride 0.9% 10 ML IV SCH (09:39)
[2021-05-13] MEDS: cefTRIAXone 2 GM/50 ML BAG IV SCH ×2 (09:43→10:57)
[2021-05-13] MEDS: VANCOmycin 1.5 GM/300 ML 1.5 GM in Premix Bag 1 BAG IV SCH (10:55)
[2021-05-13] MEDS: Acyclovir 200 MG Cap PO SCH ×3 (11:10→21:01)
[2021-05-13] MEDS: Lactated Ringers 1,000 ML IV SCH (11:54)
--- NOTE | 2021-05-13 13:38 | PCM.PN ---
- General Info Date of Service: 05/13/21 Admission Dx/Problem (Free Text): Admission Diagnosis/Problem Admission Diagnosis/Problem Mental deterioration Subjective Update: Patient seen at bedside, in chair, awake, answering some basic questions and following basic commands, family at bedside. non toxic looking Functional Status: Reports: Tolerating Diet, Urinating - Review of Systems General: Reports: Weakness. Denies: Fever, Fatigue, Malaise Pulmonary: Denies: Shortness of Breath, Pleuritic Chest Pain Cardiovascular: Denies: Chest Pain, Palpitations Gastrointestinal: Denies: Abdominal Pain, Constipation, Decreased Appetite Genitourinary: Denies: Dysuria, Frequency, Burning Musculoskeletal: Denies: Neck Pain, Shoulder Pain, Arm Pain, Hand Pain, Leg Pain Skin: Denies: Cyanosis, Jaundice, Mottled Neurological: Reports: Confusion, Trouble Speaking, Difficulty Walking, Gait Disturbance. Denies: Dizziness, Headache, Seizure, Syncope, Tingling, Tremors Psychiatric: Reports: Confusion, Mood Lability, Agitation. Denies: Depression - Patient Data Vitals - Most Recent: Last Vital Signs Temp 36.3 C 05/13/21 11:30 Pulse 92 05/13/21 11:30 Resp 20 05/13/21 11:30 BP 148/96 H 05/13/21 11:30 Pulse Ox 96 05/13/21 11:30 Weight - Most Recent: 77.467 kg I&O - Last 24 Hours: Intake & Output 05/12/21 05/13/21 05/13/21 22:59 06:59 14:59 Intake Total 2150 750 Output Total 1175 3800 Balance 975 -3050 Lab Results Last 24 Hours: Laboratory Results - last 24 hr 05/12/21 05/12/21 05/12/21 Range/Units 15:04 17:09 19:41 WBC (4.0-11.0) K/uL RBC (4.50-5.90) M/uL Hgb (13.0-17.0) g/dL Hct (38.0-50.0) % MCV (80.0-98.0) fL MCH (27.0-32.0) pg MCHC (31.0-37.0) g/dL RDW Std Deviation (28.0-62.0) fl RDW Coeff of Ananda (11.0-15.0) % Plt Count (150-400) K/uL MPV (7.40-12.00) fL Neut % (Auto) (48.0-80.0) % Lymph % (Auto) (16.0-40.0) % [place] % (Auto) (0.0-15.0) % Eos % (Auto) (0.0-7.0) % Baso % (Auto) (0.0-1.5) % Neut # (Auto) (1.4-5.7) K/uL Lymph # (Auto) (0.6-2.4) K/uL [place] # (Auto) (0.0-0.8) K/uL Eos # (Auto) (0.0-0.7) K/uL Baso # (Auto) (0.0-0.1) K/uL Nucleated RBC % /100WBC Nucleated RBCs # K/uL Sodium (136-148) mmol/L Potassium (3.5-5.1) mmol/L Chloride (98-107) mmol/L Carbon Dioxide (21.0-32.0) mmol/L BUN (7.0-18.0) mg/dL Creatinine (0.8-1.3) mg/dL Est Cr Clr Drug Dosing mL/min Estimated GFR (MDRD) ml/min Glucose (74-106) mg/dL POC Glucose 119 H 133 H (70-99) mg/dL Calcium (8.5-10.1) mg/dL Phosphorus (2.6-4.7) mg/dL Magnesium (1.8-2.4) mg/dL Vancomycin Trough 14.7 H (5.0-10.0) ug/mL 05/13/21 05/13/21 Range/Units 06:00 06:00 WBC 8.18 (4.0-11.0) K/uL RBC 3.86 L (4.50-5.90) M/uL Hgb 12.3 L (13.0-17.0) g/dL Hct 33.9 L (38.0-50.0) % MCV 87.8 (80.0-98.0) fL MCH 31.9 (27.0-32.0) pg MCHC 36.3 (31.0-37.0) g/dL RDW Std Deviation 39.2 (28.0-62.0) fl RDW Coeff of Ananda 12 (11.0-15.0) % Plt Count 185 (150-400) K/uL MPV 11.20 (7.40-12.00) fL Neut % (Auto) 91.2 H (48.0-80.0) % Lymph % (Auto) 5.4 L (16.0-40.0) % [place] % (Auto) 3.4 (0.0-15.0) % Eos % (Auto) 0.0 (0.0-7.0) % Baso % (Auto) 0.0 (0.0-1.5) % Neut # (Auto) 7.5 H (1.4-5.7) K/uL Lymph # (Auto) 0.4 L (0.6-2.4) K/uL [place] # (Auto) 0.3 (0.0-0.8) K/uL Eos # (Auto) 0.0 (0.0-0.7) K/uL Baso # (Auto) 0.0 (0.0-0.1) K/uL Nucleated RBC % 0.0 /100WBC Nucleated RBCs # 0 K/uL Sodium 132 L (136-148) mmol/L Potassium 4.3 (3.5-5.1) mmol/L Chloride 97 L (98-107) mmol/L Carbon Dioxide 24.3 (21.0-32.0) mmol/L BUN 17 (7.0-18.0) mg/dL Creatinine 0.9 (0.8-1.3) mg/dL Est Cr Clr Drug Dosing 87.87 mL/min Estimated GFR (MDRD) > 60.0 ml/min Glucose 126 H (74-106) mg/dL POC Glucose (70-99) mg/dL Calcium 8.3 L (8.5-10.1) mg/dL Phosphorus 3.8 (2.6-4.7) mg/dL Magnesium 1.9 (1.8-2.4) mg/dL Vancomycin Trough (5.0-10.0) ug/mL Isacc Results Last 24 Hours: Microbiology 05/11/21 11:25 CSF Culture - Preliminary Cerebral Spinal Fluid Gram Stain - Final Med Orders - Current: Current Medications Acetaminophen (Acetaminophen 325 Mg Tab) 650 mg PO Q4H PRN PRN Reason: Pain Last Admin: 05/12/21 15:27 Dose: 650 mg Documented by: Acyclovir (Acyclovir 200 Mg Cap) 800 mg PO TID [facility] Last Admin: 05/13/21 11:10 Dose: 800 mg Documented by: Albuterol/Ipratropium (Albuterol/Ipratropium 3.0-0.5 Mg/3 Ml Neb Soln) 3 ml NEB Q4HRRT PRN PRN Reason: Shortness Of Breath/wheezing Cyanocobalamin (Cyanocobalamin (Vitamin B12) 500 Mcg Tab) 1,000 mcg PO DAILY [facility] Last Admin: 05/13/21 09:18 Dose: 1,000 mcg Documented by: Enoxaparin Sodium (Enoxaparin 40 Mg/0.4 Ml Syringe) 40 mg SUBCUT Q24H [facility] Last Admin: 05/13/21 09:18 Dose: 40 mg Documented by: Levothyroxine Sodium (Levothyroxine 25 Mcg Tab) 50 mcg PO ACBREAKFAST [facility] Last Admin: 05/13/21 06:32 Dose: 50 mcg Documented by: Ondansetron HCl (Ondansetron 4 Mg/2 Ml Sdv) 4 mg IVPUSH Q4H PRN PRN Reason: Nausea/Vomiting Pantoprazole Sodium (Pantoprazole 40 Mg Tab.Cr) 40 mg PO ACBREAKFAST [facility] Quetiapine Fumarate (Quetiapine 25 Mg Tab) 50 mg PO BEDTIME [facility] Discontinued Medications Ceftriaxone Sodium (Ceftriaxone 1 Gm Vial) 2 gm IVPUSH ONETIME ONE Stop: 05/10/21 17:09 Last Admin: 05/10/21 17:53 Dose: 2 gm Documented by: Dexamethasone (Dexamethasone 4 Mg/Ml Sdv) 6 mg IVPUSH DAILY [facility] Last Admin: 05/12/21 10:36 Dose: Not Given Documented by: Dexamethasone (Dexamethasone 10 Mg/Ml Sdv) 10 mg IVPUSH Q6H [facility] Last Admin: 05/13/21 06:22 Dose: 10 mg Documented by: Diphenhydramine HCl (Diphenhydramine 50 Mg/Ml Sdv) 50 mg IVPUSH ONETIME ONE Stop: 05/10/21 20:03 Last Admin: 05/10/21 20:11 Dose: 50 mg Documented by: Diphenhydramine HCl (Diphenhydramine 50 Mg/Ml Sdv) 50 mg IVPUSH ONETIME ONE Stop: 05/11/21 20:27 Last Admin: 05/11/21 21:59 Dose: 50 mg Documented by: Diphenhydramine HCl (Diphenhydramine 50 Mg/Ml Sdv) 50 mg IVPUSH Q6H PRN PRN Reason: Agitation Last Admin: 05/12/21 17:11 Dose: 50 mg Documented by: Haloperidol Lactate (Haloperidol Lactate 5 Mg/Ml Sdv) 5 mg IM ONETIME ONE Stop: 05/10/21 20:02 Last Admin: 05/10/21 20:12 Dose: 5 mg Documented by: Haloperidol Lactate (Haloperidol Lactate 5 Mg/Ml Sdv) 5 mg IM ONETIME ONE Stop: 05/11/21 20:25 Last Admin: 05/11/21 21:58 Dose: 5 mg Documented by: Heparin Sodium (Porcine) (Heparin Sodium 5,000 Units/Ml Vial) 5,000 units SUBCUT Q8H [facility] Last Admin: 05/11/21 11:56 Dose: Not Given Documented by: Sodium Chloride (Normal Saline) 1,000 mls @ 999 mls/hr IV .BOLUS ONE Stop: 05/10/21 14:51 Last Admin: 05/10/21 14:33 Dose: 999 mls/hr Documented by: Ampicillin Sodium 2 gm/ Sodium (Chloride) 100 mls @ 200 mls/hr IV Q6H [facility] Last Admin: 05/10/21 19:17 Dose: Not Given Documented by: Vancomycin HCl 2 gm/ Premix 400 mls @ 200 mls/hr IV STAT ONE Stop: 05/10/21 19:07 Last Admin: 05/10/21 19:32 Dose: 200 mls/hr Documented by: Sodium Chloride (Normal Saline) 1,000 mls @ 999 mls/hr IV .BOLUS ONE Stop: 05/10/21 18:14 Last Admin: 05/10/21 17:49 Dose: 999 mls/hr Documented by: Lactated Ringer's (Ringers, Lactated) 1,000 mls @ 150 mls/hr IV ASDIRECTED [facility] Last Admin: 05/13/21 11:54 Dose: 150 mls/hr Documented by: Pantoprazole Sodium 40 mg/ (Sodium Chloride) 10 mls @ 200 mls/hr IV DAILY [facility] Last Admin: 05/13/21 09:39 Dose: 200 mls/hr Documented by: Ceftriaxone Sodium 2 gm/ (Sodium Chloride) 50 mls @ 100 mls/hr IV Q24H [facility] Ampicillin Sodium 2 gm/ Sodium (Chloride) 100 mls @ 200 mls/hr IV Q4H [facility] Last Admin: 05/13/21 06:29 Dose: 200 mls/hr Documented by: Vancomycin HCl 1.25 gm/ Sodium (Chloride) 250 mls @ 166.667 mls/hr IV Q12H [facility] Last Admin: 05/12/21 22:02 Dose: Not Given Documented by: Lactated Ringer's (Ringers, Lactated) 1,000 mls @ 999 mls/hr IV .BOLUS ONE Stop: 05/11/21 00:05 Last Admin: 05/11/21 00:15 Dose: 999 mls/hr Documented by: Acyclovir 750 mg/ Sodium (Chloride) 265 mls @ 250 mls/hr IV Q8H [facility] Stop: 05/11/21 09:00 Last Admin: 05/11/21 11:09 Dose: 250 mls/hr Documented by: Ceftriaxone Sodium/Dextrose (Rocephin In Dextrose,Iso-Osm 2 Gm/50 Ml) 2 gm in 50 mls @ 100 mls/hr IV Q12H [facility] Last Admin: 05/13/21 10:57 Dose: Not Given Documented by: Acyclovir 750 mg/ Sodium (Chloride) 265 mls @ 265 mls/hr IV Q8H [facility] Last Admin: 05/13/21 10:55 Dose: Not Given Documented by: Magnesium Sulfate 2 gm/ Premix 50 mls @ 12.5 mls/hr IV ONETIME ONE Stop: 05/11/21 14:15 Last Admin: 05/11/21 12:33 Dose: 12.5 mls/hr Documented by: Vancomycin HCl 1.5 gm/ Premix 300 mls @ 200 mls/hr IV Q12H [facility] Last Admin: 05/13/21 10:55 Dose: Not Given Documented by: Sterile Water (Sterile Water For Injection) Confirm Administered Dose 20 mls @ as directed .ROUTE .STK-MED ONE Stop: 05/12/21 23:57 Last Admin: 05/13/21 12:56 Dose: Not Given Documented by: Lidocaine HCl (Lidocaine 1% 5 Ml Sdv) 5 ml INJECT ONETIME ONE Stop: 05/10/21 14:51 Last Admin: 05/10/21 17:45 Dose: Not Given Documented by: Lorazepam (Lorazepam 2 Mg/Ml Sdv) 2 mg IVPUSH ONETIME ONE Stop: 05/10/21 20:01 Last Admin: 05/10/21 20:11 Dose: 2 mg Documented by: Lorazepam (Lorazepam 2 Mg/Ml Sdv) 2 mg IVPUSH ONETIME ONE Stop: 05/11/21 20:26 Last Admin: 05/11/21 21:59 Dose: 2 mg Documented by: Lorazepam (Lorazepam 2 Mg/Ml Sdv) 2 mg IVPUSH Q6H PRN PRN Reason: Agitation Last Admin: 05/12/21 22:46 Dose: 2 mg Documented by: Olanzapine (Olanzapine 10 Mg Vial) 5 mg IM ONETIME ONE Stop: 05/12/21 23:33 Last Admin: 05/13/21 00:05 Dose: 5 mg Documented by: Pantoprazole Sodium (Pantoprazole 40 Mg Vial) 40 mg IV DAILY [facility] Pantoprazole Sodium (Pantoprazole 40 Mg Vial) 40 mg IVPUSH DAILY [facility] Vancomycin HCl (Pharmacy To Dose - Vancomycin) 1 dose .XX ASDIRECTED [facility] Stop: 05/11/21 18:46 - Exam General: Alert, Cooperative, No Acute Distress Lungs: Clear to Auscultation, Normal Respiratory Effort Cardiovascular: Regular Rate, Regular Rhythm GI/Abdominal Exam: Normal Bowel Sounds, Soft, Non-Tender Extremities: Normal Inspection, Normal Range of Motion. No: Joint Swelling, Arm Pain, Leg Pain Skin: Warm Neurological: No New Focal Deficit, Strength Equal Bilateral, Reflexes Equal Bilateral, Sensation Intact, Other (opthalmoplegia (chronic)). No: Normal Gait, Normal Speech, Normal Tone - Patient Data Lab Results Last 24 hrs: Laboratory Results - last 24 hr 05/12/21 05/12/21 05/12/21 Range/Units 15:04 17:09 19:41 WBC (4.0-11.0) K/uL RBC (4.50-5.90) M/uL Hgb (13.0-17.0) g/dL Hct (38.0-50.0) % MCV (80.0-98.0) fL MCH (27.0-32.0) pg MCHC (31.0-37.0) g/dL RDW Std Deviation (28.0-62.0) fl RDW Coeff of Ananda (11.0-15.0) % Plt Count (150-400) K/uL MPV (7.40-12.00) fL Neut % (Auto) (48.0-80.0) % Lymph % (Auto) (16.0-40.0) % [place] % (Auto) (0.0-15.0) % Eos % (Auto) (0.0-7.0) % Baso % (Auto) (0.0-1.5) % Neut # (Auto) (1.4-5.7) K/uL Lymph # (Auto) (0.6-2.4) K/uL [place] # (Auto) (0.0-0.8) K/uL Eos # (Auto) (0.0-0.7) K/uL Baso # (Auto) (0.0-0.1) K/uL Nucleated RBC % /100WBC Nucleated RBCs # K/uL Sodium (136-148) mmol/L Potassium (3.5-5.1) mmol/L Chloride (98-107) mmol/L Carbon Dioxide (21.0-32.0) mmol/L BUN (7.0-18.0) mg/dL Creatinine (0.8-1.3) mg/dL Est Cr Clr Drug Dosing mL/min Estimated GFR (MDRD) ml/min Glucose (74-106) mg/dL POC Glucose 119 H 133 H (70-99) mg/dL Calcium (8.5-10.1) mg/dL Phosphorus (2.6-4.7) mg/dL Magnesium (1.8-2.4) mg/dL Vancomycin Trough 14.7 H (5.0-10.0) ug/mL 05/13/21 05/13/21 Range/Units 06:00 06:00 WBC 8.18 (4.0-11.0) K/uL RBC 3.86 L (4.50-5.90) M/uL Hgb 12.3 L (13.0-17.0) g/dL Hct 33.9 L (38.0-50.0) % MCV 87.8 (80.0-98.0) fL MCH 31.9 (27.0-32.0) pg MCHC 36.3 (31.0-37.0) g/dL RDW Std Deviation 39.2 (28.0-62.0) fl RDW Coeff of Ananda 12 (11.0-15.0) % Plt Count 185 (150-400) K/uL MPV 11.20 (7.40-12.00) fL Neut % (Auto) 91.2 H (48.0-80.0) % Lymph % (Auto) 5.4 L (16.0-40.0) % [place] % (Auto) 3.4 (0.0-15.0) % Eos % (Auto) 0.0 (0.0-7.0) % Baso % (Auto) 0.0 (0.0-1.5) % Neut # (Auto) 7.5 H (1.4-5.7) K/uL Lymph # (Auto) 0.4 L (0.6-2.4) K/uL [place] # (Auto) 0.3 (0.0-0.8) K/uL Eos # (Auto) 0.0 (0.0-0.7) K/uL Baso # (Auto) 0.0 (0.0-0.1) K/uL Nucleated RBC % 0.0 /100WBC Nucleated RBCs # 0 K/uL Sodium 132 L (136-148) mmol/L Potassium 4.3 (3.5-5.1) mmol/L Chloride 97 L (98-107) mmol/L Carbon Dioxide 24.3 (21.0-32.0) mmol/L BUN 17 (7.0-18.0) mg/dL Creatinine 0.9 (0.8-1.3) mg/dL Est Cr Clr Drug Dosing 87.87 mL/min Estimated GFR (MDRD) > 60.0 ml/min Glucose 126 H (74-106) mg/dL POC Glucose (70-99) mg/dL Calcium 8.3 L (8.5-10.1) mg/dL Phosphorus 3.8 (2.6-4.7) mg/dL Magnesium 1.9 (1.8-2.4) mg/dL Vancomycin Trough (5.0-10.0) ug/mL Result Diagrams: 05/13/21 06:00 05/13/21 06:00 Isacc Results Last 24 hrs: Microbiology 05/11/21 11:25 CSF Culture - Preliminary Cerebral Spinal Fluid Gram Stain - Final Sepsis Event Note - Evaluation Sepsis Screening Result: No Definite Risk - Focused Exam Vital Signs: Vital Signs Temp Temp Pulse Resp BP Pulse Ox 05/13/21 11:30 36.3 C 92 20 148/96 H 96 05/13/21 11:00 36.2 C 90 20 160/94 H 94 L 05/13/21 07:15 36.1 C 75 20 160/99 H 97 05/13/21 07:05 36.4 C 75 18 160/99 H 97 05/13/21 02:47 36.8 C 71 20 168/93 H 97 - Problem List & Annotations (1) Ataxia SNOMED Code(s): 11548307 Code(s): R27.0 - ATAXIA, UNSPECIFIED Status: Acute Current Visit: Yes (2) Cognitive impairment SNOMED Code(s): 943419711 Code(s): R41.89 - OT SYMPTOMS AND SIGNS W COGNITIVE FUNCTIONS AND AWARENESS Status: Acute Current Visit: Yes (3) Dysarthria SNOMED Code(s): 4437459 Code(s): R47.1 - DYSARTHRIA AND ANARTHRIA Status: Acute Current Visit: Yes (4) Hypothyroidism SNOMED Code(s): 71561747 Code(s): E03.9 - HYPOTHYROIDISM, UNSPECIFIED Status: Acute Current Visit: Yes (5) Neurodegenerative disorder SNOMED Code(s): 079604985 Code(s): G31.9 - DEGENERATIVE DISEASE OF NERVOUS SYSTEM, UNSPECIFIED Status: Acute Current Visit: Yes (6) Altered mental status SNOMED Code(s): 772602160 Code(s): R41.82 - ALTERED MENTAL STATUS, UNSPECIFIED Status: Acute Current Visit: Yes - Problem List Review Problem List Initiated/Reviewed/Updated: Yes - My Orders Last 24 Hours: My Active Orders 05/13/21 09:00 Enoxaparin [Lovenox] 40 mg SUBCUT Q24H 05/13/21 21:00 QUEtiapine [SEROqueL] 50 mg PO BEDTIME - Plan Plan:: 61-year-old male admitted for altered mental status and leukocytosis UA negative, no evident source of infection resulting in metabolic encephalopathy Currently being empirically treated for possible meningitis, csf noted,gram stain prelimnary noted, will stop IV antibiotics and switch to oral acyclovir CT scan of the head noted, possible component of dementia complicated by delirium, cont Seroquel Continue supportive care resumed lovenox Monitor and replete electrolytes as necessary Continue home meds as appropriate sister is planning for out of city rehab facility upon dc as local rehab is not taking new patients currently, MICHI on board
[2021-05-13] MEDS ORDERED: Bisacodyl 10 MG Supp RECTAL ONE (14:15)
[2021-05-13] MEDS ORDERED: Bisacodyl 10 MG Supp RECTAL PRN (14:15)
[2021-05-13] MEDS: Docusate Sodium 100 MG Cap PO SCH (14:43)
[2021-05-13] MEDS: QUEtiapine 25 MG Tab PO SCH (20:43)
[2021-05-14] MEDS: Acyclovir 200 MG Cap PO SCH ×3 (06:11→21:01)
[2021-05-14] MEDS: Pantoprazole 40 MG Tab.CR PO SCH (06:30)
[2021-05-14] MEDS: Levothyroxine 25 MCG Tab PO SCH (06:30)
[2021-05-14 07:04] LABS: BLOOD UREA NITROGEN,BUN 19 mg/dL (7.0-18.0); CARBON DIOXIDE,CO2 31.2 mmol/L (21.0-32.0); CHLORIDE,CL 101 mmol/L (98-107); GLUCOSE RANDOM 111 mg/dL (74-106); POTASSIUM,K 3.5 mmol/L (3.5-5.1); SODIUM,NA 139 mmol/L (136-148)
[2021-05-14] MEDS: Docusate Sodium 100 MG Cap PO SCH (09:08)
[2021-05-14] MEDS: Enoxaparin 40 MG/0.4 ML Syringe SUBCUT SCH (09:35)
[2021-05-14] MEDS: Cyanocobalamin (Vitamin B12) 500 MCG Tab PO SCH (09:35)
--- NOTE | 2021-05-14 12:24 | PCM.PN ---
- General Info Date of Service: 05/14/21 Admission Dx/Problem (Free Text): Admission Diagnosis/Problem Admission Diagnosis/Problem Mental deterioration Subjective Update: Patient seen at bedside, in chair, awake, per nursing patient is more awake and alert talking and eating on his own, physical therapy has been started as well, patient able to answer my questions much better than he was yesterday. Encephalopathy seems to be slowly resolving Functional Status: Reports: Tolerating Diet, Ambulating, Urinating - Review of Systems General: Denies: Fever, Weakness, Fatigue Pulmonary: Denies: Shortness of Breath, Pleuritic Chest Pain Cardiovascular: Denies: Chest Pain, Palpitations Gastrointestinal: Denies: Abdominal Pain, Constipation, Decreased Appetite Genitourinary: Denies: Dysuria, Frequency, Burning Musculoskeletal: Denies: Neck Pain, Shoulder Pain, Arm Pain Skin: Denies: Cyanosis, Jaundice, Mottled Neurological: Denies: Confusion, Dizziness, Headache - Patient Data Vitals - Most Recent: Last Vital Signs Temp 36.7 C 05/14/21 11:00 Pulse 66 05/14/21 11:00 Resp 20 05/14/21 11:00 BP 132/99 H 05/14/21 11:00 Pulse Ox 97 05/14/21 11:00 Weight - Most Recent: 77.467 kg I&O - Last 24 Hours: Intake & Output 05/13/21 05/14/21 05/14/21 22:59 06:59 14:59 Intake Total 1252 480 Output Total 2100 2750 Balance -848 -2270 Lab Results Last 24 Hours: Laboratory Results - last 24 hr 05/13/21 05/14/21 05/14/21 Range/Units 17:17 06:28 06:38 WBC 12.01 H (4.0-11.0) K/uL RBC 4.11 L (4.50-5.90) M/uL Hgb 13.2 (13.0-17.0) g/dL Hct 36.6 L (38.0-50.0) % MCV 89.1 (80.0-98.0) fL MCH 32.1 H (27.0-32.0) pg MCHC 36.1 (31.0-37.0) g/dL RDW Std Deviation 40.0 (28.0-62.0) fl RDW Coeff of Ananda 12 (11.0-15.0) % Plt Count 204 (150-400) K/uL MPV 11.20 (7.40-12.00) fL Neut % (Auto) 83.0 H (48.0-80.0) % Lymph % (Auto) 6.6 L (16.0-40.0) % Weld % (Auto) 10.4 (0.0-15.0) % Eos % (Auto) 0.0 (0.0-7.0) % Baso % (Auto) 0.0 (0.0-1.5) % Neut # (Auto) 10.0 H (1.4-5.7) K/uL Lymph # (Auto) 0.8 (0.6-2.4) K/uL Weld # (Auto) 1.3 H (0.0-0.8) K/uL Eos # (Auto) 0.0 (0.0-0.7) K/uL Baso # (Auto) 0.0 (0.0-0.1) K/uL Nucleated RBC % 0.0 /100WBC Nucleated RBCs # 0 K/uL Sodium (136-148) mmol/L Potassium (3.5-5.1) mmol/L Chloride (98-107) mmol/L Carbon Dioxide (21.0-32.0) mmol/L BUN (7.0-18.0) mg/dL Creatinine (0.8-1.3) mg/dL Est Cr Clr Drug Dosing mL/min Estimated GFR (MDRD) ml/min Glucose (74-106) mg/dL POC Glucose 133 H 107 H (70-99) mg/dL Calcium (8.5-10.1) mg/dL Phosphorus (2.6-4.7) mg/dL Magnesium (1.8-2.4) mg/dL 05/14/21 Range/Units 06:38 WBC (4.0-11.0) K/uL RBC (4.50-5.90) M/uL Hgb (13.0-17.0) g/dL Hct (38.0-50.0) % MCV (80.0-98.0) fL MCH (27.0-32.0) pg MCHC (31.0-37.0) g/dL RDW Std Deviation (28.0-62.0) fl RDW Coeff of Ananda (11.0-15.0) % Plt Count (150-400) K/uL MPV (7.40-12.00) fL Neut % (Auto) (48.0-80.0) % Lymph % (Auto) (16.0-40.0) % Weld % (Auto) (0.0-15.0) % Eos % (Auto) (0.0-7.0) % Baso % (Auto) (0.0-1.5) % Neut # (Auto) (1.4-5.7) K/uL Lymph # (Auto) (0.6-2.4) K/uL Weld # (Auto) (0.0-0.8) K/uL Eos # (Auto) (0.0-0.7) K/uL Baso # (Auto) (0.0-0.1) K/uL Nucleated RBC % /100WBC Nucleated RBCs # K/uL Sodium 139 (136-148) mmol/L Potassium 3.5 (3.5-5.1) mmol/L Chloride 101 (98-107) mmol/L Carbon Dioxide 31.2 (21.0-32.0) mmol/L BUN 19 H (7.0-18.0) mg/dL Creatinine 1.0 (0.8-1.3) mg/dL Est Cr Clr Drug Dosing 79.08 mL/min Estimated GFR (MDRD) > 60.0 ml/min Glucose 111 H (74-106) mg/dL POC Glucose (70-99) mg/dL Calcium 8.5 (8.5-10.1) mg/dL Phosphorus 3.7 (2.6-4.7) mg/dL Magnesium 2.0 (1.8-2.4) mg/dL Isacc Results Last 24 Hours: Microbiology 05/11/21 11:25 CSF Culture - Preliminary Cerebral Spinal Fluid Gram Stain - Final Med Orders - Current: Current Medications Acetaminophen (Acetaminophen 325 Mg Tab) 650 mg PO Q4H PRN PRN Reason: Pain Last Admin: 05/12/21 15:27 Dose: 650 mg Documented by: Acyclovir (Acyclovir 200 Mg Cap) 800 mg PO TID DEANNA Last Admin: 05/14/21 06:11 Dose: 800 mg Documented by: Albuterol/Ipratropium (Albuterol/Ipratropium 3.0-0.5 Mg/3 Ml Neb Soln) 3 ml NEB Q4HRRT PRN PRN Reason: Shortness Of Breath/wheezing Bisacodyl (Bisacodyl 10 Mg Supp) 10 mg RECTAL DAILY PRN PRN Reason: Constipation Cyanocobalamin (Cyanocobalamin (Vitamin B12) 500 Mcg Tab) 1,000 mcg PO DAILY [facility] Last Admin: 05/14/21 09:35 Dose: 1,000 mcg Documented by: Docusate Sodium (Docusate Sodium 100 Mg Cap) 100 mg PO DAILY [facility] Last Admin: 05/14/21 09:08 Dose: Not Given Documented by: Enoxaparin Sodium (Enoxaparin 40 Mg/0.4 Ml Syringe) 40 mg SUBCUT Q24H [facility] Last Admin: 05/14/21 09:35 Dose: 40 mg Documented by: Levothyroxine Sodium (Levothyroxine 25 Mcg Tab) 50 mcg PO ACBREAKFAST [facility] Last Admin: 05/14/21 06:30 Dose: 50 mcg Documented by: Ondansetron HCl (Ondansetron 4 Mg/2 Ml Sdv) 4 mg IVPUSH Q4H PRN PRN Reason: Nausea/Vomiting Pantoprazole Sodium (Pantoprazole 40 Mg Tab.Cr) 40 mg PO ACBREAKFAST [facility] Last Admin: 05/14/21 06:30 Dose: 40 mg Documented by: Quetiapine Fumarate (Quetiapine 25 Mg Tab) 50 mg PO BEDTIME [facility] Last Admin: 05/13/21 20:43 Dose: 50 mg Documented by: Discontinued Medications Bisacodyl (Bisacodyl 10 Mg Supp) 10 mg RECTAL ONETIME ONE Stop: 05/13/21 14:16 Last Admin: 05/13/21 14:44 Dose: 10 mg Documented by: Ceftriaxone Sodium (Ceftriaxone 1 Gm Vial) 2 gm IVPUSH ONETIME ONE Stop: 05/10/21 17:09 Last Admin: 05/10/21 17:53 Dose: 2 gm Documented by: Dexamethasone (Dexamethasone 4 Mg/Ml Sdv) 6 mg IVPUSH DAILY [facility] Last Admin: 05/12/21 10:36 Dose: Not Given Documented by: Dexamethasone (Dexamethasone 10 Mg/Ml Sdv) 10 mg IVPUSH Q6H DEAN[facility] Last Admin: 05/13/21 06:22 Dose: 10 mg Documented by: Diphenhydramine HCl (Diphenhydramine 50 Mg/Ml Sdv) 50 mg IVPUSH ONETIME ONE Stop: 05/10/21 20:03 Last Admin: 05/10/21 20:11 Dose: 50 mg Documented by: Diphenhydramine HCl (Diphenhydramine 50 Mg/Ml Sdv) 50 mg IVPUSH ONETIME ONE Stop: 05/11/21 20:27 Last Admin: 05/11/21 21:59 Dose: 50 mg Documented by: Diphenhydramine HCl (Diphenhydramine 50 Mg/Ml Sdv) 50 mg IVPUSH Q6H PRN PRN Reason: Agitation Last Admin: 05/12/21 17:11 Dose: 50 mg Documented by: Haloperidol Lactate (Haloperidol Lactate 5 Mg/Ml Sdv) 5 mg IM ONETIME ONE Stop: 05/10/21 20:02 Last Admin: 05/10/21 20:12 Dose: 5 mg Documented by: Haloperidol Lactate (Haloperidol Lactate 5 Mg/Ml Sdv) 5 mg IM ONETIME ONE Stop: 05/11/21 20:25 Last Admin: 05/11/21 21:58 Dose: 5 mg Documented by: Heparin Sodium (Porcine) (Heparin Sodium 5,000 Units/Ml Vial) 5,000 units SUBCUT Q8H [facility] Last Admin: 05/11/21 11:56 Dose: Not Given Documented by: Sodium Chloride (Normal Saline) 1,000 mls @ 999 mls/hr IV .BOLUS ONE Stop: 05/10/21 14:51 Last Admin: 05/10/21 14:33 Dose: 999 mls/hr Documented by: Ampicillin Sodium 2 gm/ Sodium (Chloride) 100 mls @ 200 mls/hr IV Q6H [facility] Last Admin: 05/10/21 19:17 Dose: Not Given Documented by: Vancomycin HCl 2 gm/ Premix 400 mls @ 200 mls/hr IV STAT ONE Stop: 05/10/21 19:07 Last Admin: 05/10/21 19:32 Dose: 200 mls/hr Documented by: Sodium Chloride (Normal Saline) 1,000 mls @ 999 mls/hr IV .BOLUS ONE Stop: 05/10/21 18:14 Last Admin: 05/10/21 17:49 Dose: 999 mls/hr Documented by: Lactated Ringer's (Ringers, Lactated) 1,000 mls @ 150 mls/hr IV ASDIRECTED [facility] Last Admin: 05/13/21 11:54 Dose: 150 mls/hr Documented by: Pantoprazole Sodium 40 mg/ (Sodium Chloride) 10 mls @ 200 mls/hr IV DAILY [facility] Last Admin: 05/13/21 09:39 Dose: 200 mls/hr Documented by: Ceftriaxone Sodium 2 gm/ (Sodium Chloride) 50 mls @ 100 mls/hr IV Q24H [facility] Ampicillin Sodium 2 gm/ Sodium (Chloride) 100 mls @ 200 mls/hr IV Q4H [facility] Last Admin: 05/13/21 06:29 Dose: 200 mls/hr Documented by: Vancomycin HCl 1.25 gm/ Sodium (Chloride) 250 mls @ 166.667 mls/hr IV Q12H [facility] Last Admin: 05/12/21 22:02 Dose: Not Given Documented by: Lactated Ringer's (Ringers, Lactated) 1,000 mls @ 999 mls/hr IV .BOLUS ONE Stop: 05/11/21 00:05 Last Admin: 05/11/21 00:15 Dose: 999 mls/hr Documented by: Acyclovir 750 mg/ Sodium (Chloride) 265 mls @ 250 mls/hr IV Q8H [facility] Stop: 05/11/21 09:00 Last Admin: 05/11/21 11:09 Dose: 250 mls/hr Documented by: Ceftriaxone Sodium/Dextrose (Rocephin In Dextrose,Iso-Osm 2 Gm/50 Ml) 2 gm in 50 mls @ 100 mls/hr IV Q12H [facility] Last Admin: 05/13/21 10:57 Dose: Not Given Documented by: Acyclovir 750 mg/ Sodium (Chloride) 265 mls @ 265 mls/hr IV Q8H [facility] Last Admin: 05/13/21 10:55 Dose: Not Given Documented by: Magnesium Sulfate 2 gm/ Premix 50 mls @ 12.5 mls/hr IV ONETIME ONE Stop: 05/11/21 14:15 Last Admin: 05/11/21 12:33 Dose: 12.5 mls/hr Documented by: Vancomycin HCl 1.5 gm/ Premix 300 mls @ 200 mls/hr IV Q12H [facility] Last Admin: 05/13/21 10:55 Dose: Not Given Documented by: Sterile Water (Sterile Water For Injection) Confirm Administered Dose 20 mls @ as directed .ROUTE .STK-MED ONE Stop: 05/12/21 23:57 Last Admin: 05/13/21 12:56 Dose: Not Given Documented by: Lidocaine HCl (Lidocaine 1% 5 Ml Sdv) 5 ml INJECT ONETIME ONE Stop: 05/10/21 14:51 Last Admin: 05/10/21 17:45 Dose: Not Given Documented by: Lorazepam (Lorazepam 2 Mg/Ml Sdv) 2 mg IVPUSH ONETIME ONE Stop: 05/10/21 20:01 Last Admin: 05/10/21 20:11 Dose: 2 mg Documented by: Lorazepam (Lorazepam 2 Mg/Ml Sdv) 2 mg IVPUSH ONETIME ONE Stop: 05/11/21 20:26 Last Admin: 05/11/21 21:59 Dose: 2 mg Documented by: Lorazepam (Lorazepam 2 Mg/Ml Sdv) 2 mg IVPUSH Q6H PRN PRN Reason: Agitation Last Admin: 05/12/21 22:46 Dose: 2 mg Documented by: Olanzapine (Olanzapine 10 Mg Vial) 5 mg IM ONETIME ONE Stop: 05/12/21 23:33 Last Admin: 05/13/21 00:05 Dose: 5 mg Documented by: Pantoprazole Sodium (Pantoprazole 40 Mg Vial) 40 mg IV DAILY [facility] Pantoprazole Sodium (Pantoprazole 40 Mg Vial) 40 mg IVPUSH DAILY [facility] Vancomycin HCl (Pharmacy To Dose - Vancomycin) 1 dose .XX ASDIRECTED [facility] Stop: 05/11/21 18:46 - Exam General: Alert, Oriented (X2), Cooperative, No Acute Distress Lungs: Clear to Auscultation, Normal Respiratory Effort Cardiovascular: Regular Rate, Regular Rhythm GI/Abdominal Exam: Normal Bowel Sounds, Soft, Non-Tender Extremities: Normal Inspection Neurological: No New Focal Deficit, Sensation Intact, Other (Dysarthria, unsteady gait). No: Normal Speech, Cranial Nerves Intact (Ophthalmoplegia) Psy/Mental Status: Alert, Labile Mood - Patient Data Lab Results Last 24 hrs: Laboratory Results - last 24 hr 05/13/21 05/14/21 05/14/21 Range/Units 17:17 06:28 06:38 WBC 12.01 H (4.0-11.0) K/uL RBC 4.11 L (4.50-5.90) M/uL Hgb 13.2 (13.0-17.0) g/dL Hct 36.6 L (38.0-50.0) % MCV 89.1 (80.0-98.0) fL MCH 32.1 H (27.0-32.0) pg MCHC 36.1 (31.0-37.0) g/dL RDW Std Deviation 40.0 (28.0-62.0) fl RDW Coeff of Ananda 12 (11.0-15.0) % Plt Count 204 (150-400) K/uL MPV 11.20 (7.40-12.00) fL Neut % (Auto) 83.0 H (48.0-80.0) % Lymph % (Auto) 6.6 L (16.0-40.0) % Weld % (Auto) 10.4 (0.0-15.0) % Eos % (Auto) 0.0 (0.0-7.0) % Baso % (Auto) 0.0 (0.0-1.5) % Neut # (Auto) 10.0 H (1.4-5.7) K/uL Lymph # (Auto) 0.8 (0.6-2.4) K/uL Weld # (Auto) 1.3 H (0.0-0.8) K/uL Eos # (Auto) 0.0 (0.0-0.7) K/uL Baso # (Auto) 0.0 (0.0-0.1) K/uL Nucleated RBC % 0.0 /100WBC Nucleated RBCs # 0 K/uL Sodium (136-148) mmol/L Potassium (3.5-5.1) mmol/L Chloride (98-107) mmol/L Carbon Dioxide (21.0-32.0) mmol/L BUN (7.0-18.0) mg/dL Creatinine (0.8-1.3) mg/dL Est Cr Clr Drug Dosing mL/min Estimated GFR (MDRD) ml/min Glucose (74-106) mg/dL POC Glucose 133 H 107 H (70-99) mg/dL Calcium (8.5-10.1) mg/dL Phosphorus (2.6-4.7) mg/dL Magnesium (1.8-2.4) mg/dL 05/14/21 Range/Units 06:38 WBC (4.0-11.0) K/uL RBC (4.50-5.90) M/uL Hgb (13.0-17.0) g/dL Hct (38.0-50.0) % MCV (80.0-98.0) fL MCH (27.0-32.0) pg MCHC (31.0-37.0) g/dL RDW Std Deviation (28.0-62.0) fl RDW Coeff of Ananda (11.0-15.0) % Plt Count (150-400) K/uL MPV (7.40-12.00) fL Neut % (Auto) (48.0-80.0) % Lymph % (Auto) (16.0-40.0) % Weld % (Auto) (0.0-15.0) % Eos % (Auto) (0.0-7.0) % Baso % (Auto) (0.0-1.5) % Neut # (Auto) (1.4-5.7) K/uL Lymph # (Auto) (0.6-2.4) K/uL Weld # (Auto) (0.0-0.8) K/uL Eos # (Auto) (0.0-0.7) K/uL Baso # (Auto) (0.0-0.1) K/uL Nucleated RBC % /100WBC Nucleated RBCs # K/uL Sodium 139 (136-148) mmol/L Potassium 3.5 (3.5-5.1) mmol/L Chloride 101 (98-107) mmol/L Carbon Dioxide 31.2 (21.0-32.0) mmol/L BUN 19 H (7.0-18.0) mg/dL Creatinine 1.0 (0.8-1.3) mg/dL Est Cr Clr Drug Dosing 79.08 mL/min Estimated GFR (MDRD) > 60.0 ml/min Glucose 111 H (74-106) mg/dL POC Glucose (70-99) mg/dL Calcium 8.5 (8.5-10.1) mg/dL Phosphorus 3.7 (2.6-4.7) mg/dL Magnesium 2.0 (1.8-2.4) mg/dL Result Diagrams: 05/14/21 06:38 05/14/21 06:38 Isacc Results Last 24 hrs: Microbiology 05/11/21 11:25 CSF Culture - Preliminary Cerebral Spinal Fluid Gram Stain - Final Sepsis Event Note - Evaluation Sepsis Screening Result: No Definite Risk - Focused Exam Vital Signs: Vital Signs Temp Pulse Resp BP Pulse Ox 05/14/21 11:00 36.7 C 66 20 132/99 H 97 05/14/21 07:39 36.6 C 59 L 18 128/77 99 05/14/21 02:41 36.1 C 71 18 157/97 H 96 - Problem List & Annotations (1) Ataxia SNOMED Code(s): 10452436 Code(s): R27.0 - ATAXIA, UNSPECIFIED Status: Acute Current Visit: Yes (2) Cognitive impairment SNOMED Code(s): 639366660 Code(s): R41.89 - OT SYMPTOMS AND SIGNS W COGNITIVE FUNCTIONS AND AWARENESS Status: Acute Current Visit: Yes (3) Dysarthria SNOMED Code(s): 8018377 Code(s): R47.1 - DYSARTHRIA AND ANARTHRIA Status: Acute Current Visit: Yes (4) Hypothyroidism SNOMED Code(s): 93912038 Code(s): E03.9 - HYPOTHYROIDISM, UNSPECIFIED Status: Acute Current Visit: Yes (5) Neurodegenerative disorder SNOMED Code(s): 613937067 Code(s): G31.9 - DEGENERATIVE DISEASE OF NERVOUS SYSTEM, UNSPECIFIED Status: Acute Current Visit: Yes (6) Altered mental status SNOMED Code(s): 733817008 Code(s): R41.82 - ALTERED MENTAL STATUS, UNSPECIFIED Status: Acute Current Visit: Yes - Problem List Review Problem List Initiated/Reviewed/Updated: Yes - My Orders Last 24 Hours: My Active Orders 05/13/21 21:00 QUEtiapine [SEROqueL] 50 mg PO BEDTIME 05/14/21 09:07 Consult to Physical Therapy [PT Evaluation and Treatment] [CONS] Routine - Plan Plan:: 61-year-old male admitted for altered mental status and leukocytosis Continue oral acyclovir for possible viral meningitis, based on Gram stain and prelim blood cultures no organism has been identified CT scan of the head noted, possible component of dementia complicated by delirium, cont Seroquel Continue supportive care resumed lovenox Monitor and replete electrolytes as necessary Continue home meds as appropriate Continue physical therapy for physical rehabilitation sister is planning for out of city rehab facility upon dc as local rehab is not taking new patients currently, [facility] on board Patient will need a speech therapy consult for dysarthria as well as to assess for swallowing dysfunction
[2021-05-14] MEDS: QUEtiapine 25 MG Tab PO SCH (20:59)
[2021-05-15] MEDS: Acyclovir 200 MG Cap PO SCH ×3 (06:21→21:00)
[2021-05-15] MEDS: Levothyroxine 25 MCG Tab PO SCH (06:31)
[2021-05-15] MEDS: Pantoprazole 40 MG Tab.CR PO SCH (06:32)
[2021-05-15 08:02] LABS: BLOOD UREA NITROGEN,BUN 20 mg/dL (7.0-18.0); CARBON DIOXIDE,CO2 28.8 mmol/L (21.0-32.0); CHLORIDE,CL 103 mmol/L (98-107); GLUCOSE RANDOM 91 mg/dL (74-106); POTASSIUM,K 3.5 mmol/L (3.5-5.1); SODIUM,NA 139 mmol/L (136-148)
[2021-05-15] MEDS: Cyanocobalamin (Vitamin B12) 500 MCG Tab PO SCH (08:23)
[2021-05-15] MEDS: Enoxaparin 40 MG/0.4 ML Syringe SUBCUT SCH (08:24)
[2021-05-15] MEDS: Docusate Sodium 100 MG Cap PO SCH (08:24)
--- NOTE | 2021-05-15 13:20 | PCM.PN ---
- General Info Date of Service: 05/15/21 Admission Dx/Problem (Free Text): Admission Diagnosis/Problem Admission Diagnosis/Problem Mental deterioration Subjective Update: Patient seen at bedside, in chair, awake, alert, answering questions, following commands - Review of Systems General: Denies: Fever, Weakness Pulmonary: Denies: Shortness of Breath, Pleuritic Chest Pain Cardiovascular: Denies: Chest Pain, Palpitations Gastrointestinal: Denies: Abdominal Pain, Constipation Genitourinary: Denies: Dysuria, Frequency, Burning Musculoskeletal: Denies: Neck Pain, Shoulder Pain, Arm Pain Skin: Denies: Cyanosis, Jaundice, Mottled - Patient Data Vitals - Most Recent: Last Vital Signs Temp 37.2 C 05/15/21 12:27 Pulse 66 05/15/21 12:27 Resp 16 05/15/21 12:27 BP 112/63 05/15/21 12:27 Pulse Ox 97 05/15/21 12:27 Weight - Most Recent: 77.467 kg I&O - Last 24 Hours: Intake & Output 05/14/21 05/15/21 05/15/21 22:59 06:59 14:59 Intake Total 800 550 Output Total 1103 850 Balance -303 -300 Lab Results Last 24 Hours: Laboratory Results - last 24 hr 05/15/21 05/15/21 05/15/21 Range/Units 06:52 07:20 07:20 WBC 8.51 (4.0-11.0) K/uL RBC 3.89 L (4.50-5.90) M/uL Hgb 12.6 L (13.0-17.0) g/dL Hct 35.5 L (38.0-50.0) % MCV 91.3 (80.0-98.0) fL MCH 32.4 H (27.0-32.0) pg MCHC 35.5 (31.0-37.0) g/dL RDW Std Deviation 42.1 (28.0-62.0) fl RDW Coeff of Ananda 13 (11.0-15.0) % Plt Count 191 (150-400) K/uL MPV 10.90 (7.40-12.00) fL Neut % (Auto) 65.7 (48.0-80.0) % Lymph % (Auto) 23.4 (16.0-40.0) % Teller % (Auto) 10.2 (0.0-15.0) % Eos % (Auto) 0.6 (0.0-7.0) % Baso % (Auto) 0.1 (0.0-1.5) % Neut # (Auto) 5.6 (1.4-5.7) K/uL Lymph # (Auto) 2.0 (0.6-2.4) K/uL Teller # (Auto) 0.9 H (0.0-0.8) K/uL Eos # (Auto) 0.1 (0.0-0.7) K/uL Baso # (Auto) 0.0 (0.0-0.1) K/uL Nucleated RBC % 0.0 /100WBC Nucleated RBCs # 0 K/uL Sodium 139 (136-148) mmol/L Potassium 3.5 (3.5-5.1) mmol/L Chloride 103 (98-107) mmol/L Carbon Dioxide 28.8 (21.0-32.0) mmol/L BUN 20 H (7.0-18.0) mg/dL Creatinine 1.0 (0.8-1.3) mg/dL Est Cr Clr Drug Dosing 79.08 mL/min Estimated GFR (MDRD) > 60.0 ml/min Glucose 91 (74-106) mg/dL POC Glucose 86 (70-99) mg/dL Calcium 7.8 L (8.5-10.1) mg/dL Phosphorus 4.4 (2.6-4.7) mg/dL Magnesium 1.9 (1.8-2.4) mg/dL 05/15/21 Range/Units 12:20 WBC (4.0-11.0) K/uL RBC (4.50-5.90) M/uL Hgb (13.0-17.0) g/dL Hct (38.0-50.0) % MCV (80.0-98.0) fL MCH (27.0-32.0) pg MCHC (31.0-37.0) g/dL RDW Std Deviation (28.0-62.0) fl RDW Coeff of Ananda (11.0-15.0) % Plt Count (150-400) K/uL MPV (7.40-12.00) fL Neut % (Auto) (48.0-80.0) % Lymph % (Auto) (16.0-40.0) % Teller % (Auto) (0.0-15.0) % Eos % (Auto) (0.0-7.0) % Baso % (Auto) (0.0-1.5) % Neut # (Auto) (1.4-5.7) K/uL Lymph # (Auto) (0.6-2.4) K/uL Teller # (Auto) (0.0-0.8) K/uL Eos # (Auto) (0.0-0.7) K/uL Baso # (Auto) (0.0-0.1) K/uL Nucleated RBC % /100WBC Nucleated RBCs # K/uL Sodium (136-148) mmol/L Potassium (3.5-5.1) mmol/L Chloride (98-107) mmol/L Carbon Dioxide (21.0-32.0) mmol/L BUN (7.0-18.0) mg/dL Creatinine (0.8-1.3) mg/dL Est Cr Clr Drug Dosing mL/min Estimated GFR (MDRD) ml/min Glucose (74-106) mg/dL POC Glucose 75 (70-99) mg/dL Calcium (8.5-10.1) mg/dL Phosphorus (2.6-4.7) mg/dL Magnesium (1.8-2.4) mg/dL Isacc Results Last 24 Hours: Microbiology 05/11/21 11:25 CSF Culture - Preliminary Cerebral Spinal Fluid Gram Stain - Final Med Orders - Current: Current Medications Acetaminophen (Acetaminophen 325 Mg Tab) 650 mg PO Q4H PRN PRN Reason: Pain Last Admin: 05/12/21 15:27 Dose: 650 mg Documented by: Acyclovir (Acyclovir 200 Mg Cap) 800 mg PO TID DEANNA Last Admin: 05/15/21 06:21 Dose: 800 mg Documented by: Albuterol/Ipratropium (Albuterol/Ipratropium 3.0-0.5 Mg/3 Ml Neb Soln) 3 ml NEB Q4HRRT PRN PRN Reason: Shortness Of Breath/wheezing Bisacodyl (Bisacodyl 10 Mg Supp) 10 mg RECTAL DAILY PRN PRN Reason: Constipation Cyanocobalamin (Cyanocobalamin (Vitamin B12) 500 Mcg Tab) 1,000 mcg PO DAILY REPLACED BY [facility] Last Admin: 05/15/21 08:23 Dose: 1,000 mcg Documented by: Docusate Sodium (Docusate Sodium 100 Mg Cap) 100 mg PO DAILY REPLACED BY [facility] Last Admin: 05/15/21 08:24 Dose: Not Given Documented by: Enoxaparin Sodium (Enoxaparin 40 Mg/0.4 Ml Syringe) 40 mg SUBCUT Q24H REPLACED BY [facility] Last Admin: 05/15/21 08:24 Dose: 40 mg Documented by: Levothyroxine Sodium (Levothyroxine 25 Mcg Tab) 50 mcg PO ACBREAKFAST REPLACED BY [facility] Last Admin: 05/15/21 06:31 Dose: 50 mcg Documented by: Ondansetron HCl (Ondansetron 4 Mg/2 Ml Sdv) 4 mg IVPUSH Q4H PRN PRN Reason: Nausea/Vomiting Pantoprazole Sodium (Pantoprazole 40 Mg Tab.Cr) 40 mg PO ACBREAKFAST REPLACED BY [facility] Last Admin: 05/15/21 06:32 Dose: 40 mg Documented by: Quetiapine Fumarate (Quetiapine 25 Mg Tab) 50 mg PO BEDTIME REPLACED BY [facility] Last Admin: 05/14/21 20:59 Dose: 50 mg Documented by: Discontinued Medications Bisacodyl (Bisacodyl 10 Mg Supp) 10 mg RECTAL ONETIME ONE Stop: 05/13/21 14:16 Last Admin: 05/13/21 14:44 Dose: 10 mg Documented by: Ceftriaxone Sodium (Ceftriaxone 1 Gm Vial) 2 gm IVPUSH ONETIME ONE Stop: 05/10/21 17:09 Last Admin: 05/10/21 17:53 Dose: 2 gm Documented by: Dexamethasone (Dexamethasone 4 Mg/Ml Sdv) 6 mg IVPUSH DAILY REPLACED BY [facility] Last Admin: 05/12/21 10:36 Dose: Not Given Documented by: Dexamethasone (Dexamethasone 10 Mg/Ml Sdv) 10 mg IVPUSH Q6H REPLACED BY [facility] Last Admin: 05/13/21 06:22 Dose: 10 mg Documented by: Diphenhydramine HCl (Diphenhydramine 50 Mg/Ml Sdv) 50 mg IVPUSH ONETIME ONE Stop: 05/10/21 20:03 Last Admin: 05/10/21 20:11 Dose: 50 mg Documented by: Diphenhydramine HCl (Diphenhydramine 50 Mg/Ml Sdv) 50 mg IVPUSH ONETIME ONE Stop: 05/11/21 20:27 Last Admin: 05/11/21 21:59 Dose: 50 mg Documented by: Diphenhydramine HCl (Diphenhydramine 50 Mg/Ml Sdv) 50 mg IVPUSH Q6H PRN PRN Reason: Agitation Last Admin: 05/12/21 17:11 Dose: 50 mg Documented by: Haloperidol Lactate (Haloperidol Lactate 5 Mg/Ml Sdv) 5 mg IM ONETIME ONE Stop: 05/10/21 20:02 Last Admin: 05/10/21 20:12 Dose: 5 mg Documented by: Haloperidol Lactate (Haloperidol Lactate 5 Mg/Ml Sdv) 5 mg IM ONETIME ONE Stop: 05/11/21 20:25 Last Admin: 05/11/21 21:58 Dose: 5 mg Documented by: Heparin Sodium (Porcine) (Heparin Sodium 5,000 Units/Ml Vial) 5,000 units SUBCUT Q8H REPLACED BY [facility] Last Admin: 05/11/21 11:56 Dose: Not Given Documented by: Sodium Chloride (Normal Saline) 1,000 mls @ 999 mls/hr IV .BOLUS ONE Stop: 05/10/21 14:51 Last Admin: 05/10/21 14:33 Dose: 999 mls/hr Documented by: Ampicillin Sodium 2 gm/ Sodium (Chloride) 100 mls @ 200 mls/hr IV Q6H REPLACED BY [facility] Last Admin: 05/10/21 19:17 Dose: Not Given Documented by: Vancomycin HCl 2 gm/ Premix 400 mls @ 200 mls/hr IV STAT ONE Stop: 05/10/21 19:07 Last Admin: 05/10/21 19:32 Dose: 200 mls/hr Documented by: Sodium Chloride (Normal Saline) 1,000 mls @ 999 mls/hr IV .BOLUS ONE Stop: 05/10/21 18:14 Last Admin: 05/10/21 17:49 Dose: 999 mls/hr Documented by: Lactated Ringer's (Ringers, Lactated) 1,000 mls @ 150 mls/hr IV ASDIRECTED REPLACED BY [facility] Last Admin: 05/13/21 11:54 Dose: 150 mls/hr Documented by: Pantoprazole Sodium 40 mg/ (Sodium Chloride) 10 mls @ 200 mls/hr IV DAILY REPLACED BY [facility] Last Admin: 05/13/21 09:39 Dose: 200 mls/hr Documented by: Ceftriaxone Sodium 2 gm/ (Sodium Chloride) 50 mls @ 100 mls/hr IV Q24H REPLACED BY [facility] Ampicillin Sodium 2 gm/ Sodium (Chloride) 100 mls @ 200 mls/hr IV Q4H REPLACED BY [facility] Last Admin: 05/13/21 06:29 Dose: 200 mls/hr Documented by: Vancomycin HCl 1.25 gm/ Sodium (Chloride) 250 mls @ 166.667 mls/hr IV Q12H REPLACED BY [facility] Last Admin: 05/12/21 22:02 Dose: Not Given Documented by: Lactated Ringer's (Ringers, Lactated) 1,000 mls @ 999 mls/hr IV .BOLUS ONE Stop: 05/11/21 00:05 Last Admin: 05/11/21 00:15 Dose: 999 mls/hr Documented by: Acyclovir 750 mg/ Sodium (Chloride) 265 mls @ 250 mls/hr IV Q8H REPLACED BY [facility] Stop: 05/11/21 09:00 Last Admin: 05/11/21 11:09 Dose: 250 mls/hr Documented by: Ceftriaxone Sodium/Dextrose (Rocephin In Dextrose,Iso-Osm 2 Gm/50 Ml) 2 gm in 50 mls @ 100 mls/hr IV Q12H REPLACED BY [facility] Last Admin: 05/13/21 10:57 Dose: Not Given Documented by: Acyclovir 750 mg/ Sodium (Chloride) 265 mls @ 265 mls/hr IV Q8H REPLACED BY [facility] Last Admin: 05/13/21 10:55 Dose: Not Given Documented by: Magnesium Sulfate 2 gm/ Premix 50 mls @ 12.5 mls/hr IV ONETIME ONE Stop: 05/11/21 14:15 Last Admin: 05/11/21 12:33 Dose: 12.5 mls/hr Documented by: Vancomycin HCl 1.5 gm/ Premix 300 mls @ 200 mls/hr IV Q12H REPLACED BY [facility] Last Admin: 05/13/21 10:55 Dose: Not Given Documented by: Sterile Water (Sterile Water For Injection) Confirm Administered Dose 20 mls @ as directed .ROUTE .STK-MED ONE Stop: 05/12/21 23:57 Last Admin: 05/13/21 12:56 Dose: Not Given Documented by: Lidocaine HCl (Lidocaine 1% 5 Ml Sdv) 5 ml INJECT ONETIME ONE Stop: 05/10/21 14:51 Last Admin: 05/10/21 17:45 Dose: Not Given Documented by: Lorazepam (Lorazepam 2 Mg/Ml Sdv) 2 mg IVPUSH ONETIME ONE Stop: 05/10/21 20:01 Last Admin: 05/10/21 20:11 Dose: 2 mg Documented by: Lorazepam (Lorazepam 2 Mg/Ml Sdv) 2 mg IVPUSH ONETIME ONE Stop: 05/11/21 20:26 Last Admin: 05/11/21 21:59 Dose: 2 mg Documented by: Lorazepam (Lorazepam 2 Mg/Ml Sdv) 2 mg IVPUSH Q6H PRN PRN Reason: Agitation Last Admin: 05/12/21 22:46 Dose: 2 mg Documented by: Olanzapine (Olanzapine 10 Mg Vial) 5 mg IM ONETIME ONE Stop: 05/12/21 23:33 Last Admin: 05/13/21 00:05 Dose: 5 mg Documented by: Pantoprazole Sodium (Pantoprazole 40 Mg Vial) 40 mg IV DAILY REPLACED BY [facility] Pantoprazole Sodium (Pantoprazole 40 Mg Vial) 40 mg IVPUSH DAILY REPLACED BY [facility] Vancomycin HCl (Pharmacy To Dose - Vancomycin) 1 dose .XX ASDIRECTED REPLACED BY [facility] Stop: 05/11/21 18:46 - Exam General: Alert, Oriented, Cooperative, No Acute Distress Lungs: Clear to Auscultation Cardiovascular: Regular Rate, Regular Rhythm GI/Abdominal Exam: Normal Bowel Sounds, Soft, Non-Tender Extremities: Normal Inspection, Normal Range of Motion Neurological: Sensation Intact. No: Normal Gait, Normal Speech Psy/Mental Status: Alert. No: Suicidal Ideation, Homicidal Ideation - Patient Data Lab Results Last 24 hrs: Laboratory Results - last 24 hr 05/15/21 05/15/21 05/15/21 Range/Units 06:52 07:20 07:20 WBC 8.51 (4.0-11.0) K/uL RBC 3.89 L (4.50-5.90) M/uL Hgb 12.6 L (13.0-17.0) g/dL Hct 35.5 L (38.0-50.0) % MCV 91.3 (80.0-98.0) fL MCH 32.4 H (27.0-32.0) pg MCHC 35.5 (31.0-37.0) g/dL RDW Std Deviation 42.1 (28.0-62.0) fl RDW Coeff of Ananda 13 (11.0-15.0) % Plt Count 191 (150-400) K/uL MPV 10.90 (7.40-12.00) fL Neut % (Auto) 65.7 (48.0-80.0) % Lymph % (Auto) 23.4 (16.0-40.0) % Teller % (Auto) 10.2 (0.0-15.0) % Eos % (Auto) 0.6 (0.0-7.0) % Baso % (Auto) 0.1 (0.0-1.5) % Neut # (Auto) 5.6 (1.4-5.7) K/uL Lymph # (Auto) 2.0 (0.6-2.4) K/uL Teller # (Auto) 0.9 H (0.0-0.8) K/uL Eos # (Auto) 0.1 (0.0-0.7) K/uL Baso # (Auto) 0.0 (0.0-0.1) K/uL Nucleated RBC % 0.0 /100WBC Nucleated RBCs # 0 K/uL Sodium 139 (136-148) mmol/L Potassium 3.5 (3.5-5.1) mmol/L Chloride 103 (98-107) mmol/L Carbon Dioxide 28.8 (21.0-32.0) mmol/L BUN 20 H (7.0-18.0) mg/dL Creatinine 1.0 (0.8-1.3) mg/dL Est Cr Clr Drug Dosing 79.08 mL/min Estimated GFR (MDRD) > 60.0 ml/min Glucose 91 (74-106) mg/dL POC Glucose 86 (70-99) mg/dL Calcium 7.8 L (8.5-10.1) mg/dL Phosphorus 4.4 (2.6-4.7) mg/dL Magnesium 1.9 (1.8-2.4) mg/dL 05/15/21 Range/Units 12:20 WBC (4.0-11.0) K/uL RBC (4.50-5.90) M/uL Hgb (13.0-17.0) g/dL Hct (38.0-50.0) % MCV (80.0-98.0) fL MCH (27.0-32.0) pg MCHC (31.0-37.0) g/dL RDW Std Deviation (28.0-62.0) fl RDW Coeff of Ananda (11.0-15.0) % Plt Count (150-400) K/uL MPV (7.40-12.00) fL Neut % (Auto) (48.0-80.0) % Lymph % (Auto) (16.0-40.0) % Teller % (Auto) (0.0-15.0) % Eos % (Auto) (0.0-7.0) % Baso % (Auto) (0.0-1.5) % Neut # (Auto) (1.4-5.7) K/uL Lymph # (Auto) (0.6-2.4) K/uL Teller # (Auto) (0.0-0.8) K/uL Eos # (Auto) (0.0-0.7) K/uL Baso # (Auto) (0.0-0.1) K/uL Nucleated RBC % /100WBC Nucleated RBCs # K/uL Sodium (136-148) mmol/L Potassium (3.5-5.1) mmol/L Chloride (98-107) mmol/L Carbon Dioxide (21.0-32.0) mmol/L BUN (7.0-18.0) mg/dL Creatinine (0.8-1.3) mg/dL Est Cr Clr Drug Dosing mL/min Estimated GFR (MDRD) ml/min Glucose (74-106) mg/dL POC Glucose 75 (70-99) mg/dL Calcium (8.5-10.1) mg/dL Phosphorus (2.6-4.7) mg/dL Magnesium (1.8-2.4) mg/dL Result Diagrams: 05/15/21 07:20 05/15/21 07:20 Isacc Results Last 24 hrs: Microbiology 05/11/21 11:25 CSF Culture - Preliminary Cerebral Spinal Fluid Gram Stain - Final Sepsis Event Note - Evaluation Sepsis Screening Result: No Definite Risk - Focused Exam Vital Signs: Vital Signs Temp Pulse Resp BP Pulse Ox 05/15/21 12:27 37.2 C 66 16 112/63 97 05/15/21 07:56 36.7 C 60 16 115/71 96 05/15/21 04:23 36.2 C 60 16 115/67 95 - Problem List & Annotations (1) Ataxia SNOMED Code(s): 57594825 Code(s): R27.0 - ATAXIA, UNSPECIFIED Status: Acute Current Visit: Yes (2) Cognitive impairment SNOMED Code(s): 778895177 Code(s): R41.89 - OTH SYMPTOMS AND SIGNS W COGNITIVE FUNCTIONS AND AWARENESS Status: Acute Current Visit: Yes (3) Dysarthria SNOMED Code(s): 9750553 Code(s): R47.1 - DYSARTHRIA AND ANARTHRIA Status: Acute Current Visit: Yes (4) Hypothyroidism SNOMED Code(s): 41039181 Code(s): E03.9 - HYPOTHYROIDISM, UNSPECIFIED Status: Acute Current Visit: Yes (5) Neurodegenerative disorder SNOMED Code(s): 872171801 Code(s): G31.9 - DEGENERATIVE DISEASE OF NERVOUS SYSTEM, UNSPECIFIED Status: Acute Current Visit: Yes (6) Altered mental status SNOMED Code(s): 293588287 Code(s): R41.82 - ALTERED MENTAL STATUS, UNSPECIFIED Status: Acute Current Visit: Yes - Problem List Review Problem List Initiated/Reviewed/Updated: Yes - My Orders Last 24 Hours: My Active Orders 05/14/21 12:57 Consult to Speech Language Pathology [ADMINISTRATIVE JUDGE Evaluation and Treatment] [CONS] Routine - Plan Plan:: 61-year-old male admitted for altered mental status and leukocytosis, both resolved Continue oral acyclovir for possible viral meningitis, based on Gram stain and prelim blood cultures no organism has been identified CT scan of the head noted cont Seroquel Continue supportive care cont lovenox for dvt ppx Monitor and replete electrolytes as necessary Continue home meds as appropriate Continue physical therapy for physical rehabilitation sister is planning for out of city rehab facility upon dc as local rehab is not taking new patients currently, SW on board Patient will need a speech therapy consult for dysarthria as well as to assess for swallowing dysfunction Remove anna as patient is more awake and can alert if he needs he needs to urinate Dispo: pending PT assessment home with home health vs SNF/nursing home [place]
[2021-05-15] MEDS: QUEtiapine 25 MG Tab PO SCH (20:59)
[2021-05-16] MEDS: Levothyroxine 25 MCG Tab PO SCH (06:38)
[2021-05-16] MEDS: Pantoprazole 40 MG Tab.CR PO SCH (06:38)
[2021-05-16] MEDS: Acyclovir 200 MG Cap PO SCH ×3 (06:38→21:44)
[2021-05-16] MEDS: Enoxaparin 40 MG/0.4 ML Syringe SUBCUT SCH (09:27)
[2021-05-16] MEDS: Docusate Sodium 100 MG Cap PO SCH (09:28)
[2021-05-16] MEDS: Cyanocobalamin (Vitamin B12) 500 MCG Tab PO SCH (09:28)
--- NOTE | 2021-05-16 15:53 | PCM.PN ---
- General Info Date of Service: 05/16/21 Admission Dx/Problem (Free Text): Admission Diagnosis/Problem Admission Diagnosis/Problem Mental deterioration Subjective Update: Patient seen at bedside, in chair, enjoying his breakfast, awake, alert, answering questions, following commands Functional Status: Reports: Tolerating Diet, Ambulating, Urinating - Review of Systems General: Denies: Fever, Weakness, Fatigue Pulmonary: Denies: Shortness of Breath, Pleuritic Chest Pain Cardiovascular: Denies: Chest Pain, Palpitations, Dyspnea on Exertion Gastrointestinal: Denies: Abdominal Pain, Constipation Genitourinary: Denies: Dysuria, Frequency Musculoskeletal: Denies: Neck Pain, Shoulder Pain, Arm Pain Skin: Denies: Cyanosis, Jaundice, Mottled - Patient Data Vitals - Most Recent: Last Vital Signs Temp 35.9 C L 05/16/21 12:00 Pulse 68 05/16/21 12:00 Resp 20 05/16/21 12:00 BP 140/78 05/16/21 12:00 Pulse Ox 99 05/16/21 12:00 Weight - Most Recent: 77.467 kg I&O - Last 24 Hours: Intake & Output 05/16/21 05/16/21 05/16/21 06:59 14:59 22:59 Intake Total 650 Output Total 1525 Balance -875 Lab Results Last 24 Hours: Laboratory Results - last 24 hr 05/15/21 05/16/21 05/16/21 Range/Units 17:13 05:18 06:27 WBC 7.45 (4.0-11.0) K/uL RBC 3.98 L (4.50-5.90) M/uL Hgb 12.8 L (13.0-17.0) g/dL Hct 36.2 L (38.0-50.0) % MCV 91.0 (80.0-98.0) fL MCH 32.2 H (27.0-32.0) pg MCHC 35.4 (31.0-37.0) g/dL RDW Std Deviation 42.0 (28.0-62.0) fl RDW Coeff of Ananda 13 (11.0-15.0) % Plt Count 190 (150-400) K/uL MPV 11.20 (7.40-12.00) fL Neut % (Auto) 68.7 (48.0-80.0) % Lymph % (Auto) 20.9 (16.0-40.0) % Kings % (Auto) 9.1 (0.0-15.0) % Eos % (Auto) 1.3 (0.0-7.0) % Baso % (Auto) 0.0 (0.0-1.5) % Neut # (Auto) 5.1 (1.4-5.7) K/uL Lymph # (Auto) 1.6 (0.6-2.4) K/uL Kings # (Auto) 0.7 (0.0-0.8) K/uL Eos # (Auto) 0.1 (0.0-0.7) K/uL Baso # (Auto) 0.0 (0.0-0.1) K/uL Nucleated RBC % 0.0 /100WBC Nucleated RBCs # 0 K/uL POC Glucose 83 87 (70-99) mg/dL 05/16/21 Range/Units 14:38 WBC (4.0-11.0) K/uL RBC (4.50-5.90) M/uL Hgb (13.0-17.0) g/dL Hct (38.0-50.0) % MCV (80.0-98.0) fL MCH (27.0-32.0) pg MCHC (31.0-37.0) g/dL RDW Std Deviation (28.0-62.0) fl RDW Coeff of Ananda (11.0-15.0) % Plt Count (150-400) K/uL MPV (7.40-12.00) fL Neut % (Auto) (48.0-80.0) % Lymph % (Auto) (16.0-40.0) % Kings % (Auto) (0.0-15.0) % Eos % (Auto) (0.0-7.0) % Baso % (Auto) (0.0-1.5) % Neut # (Auto) (1.4-5.7) K/uL Lymph # (Auto) (0.6-2.4) K/uL Kings # (Auto) (0.0-0.8) K/uL Eos # (Auto) (0.0-0.7) K/uL Baso # (Auto) (0.0-0.1) K/uL Nucleated RBC % /100WBC Nucleated RBCs # K/uL POC Glucose 96 (70-99) mg/dL Isacc Results Last 24 Hours: Microbiology 05/11/21 11:25 CSF Culture - Final Cerebral Spinal Fluid Gram Stain - Final Med Orders - Current: Current Medications Acetaminophen (Acetaminophen 325 Mg Tab) 650 mg PO Q4H PRN PRN Reason: Pain Last Admin: 05/12/21 15:27 Dose: 650 mg Documented by: Acyclovir (Acyclovir 200 Mg Cap) 800 mg PO TID [facility] Last Admin: 05/16/21 13:53 Dose: 800 mg Documented by: Albuterol/Ipratropium (Albuterol/Ipratropium 3.0-0.5 Mg/3 Ml Neb Soln) 3 ml NEB Q4HRRT PRN PRN Reason: Shortness Of Breath/wheezing Bisacodyl (Bisacodyl 10 Mg Supp) 10 mg RECTAL DAILY PRN PRN Reason: Constipation Cyanocobalamin (Cyanocobalamin (Vitamin B12) 500 Mcg Tab) 1,000 mcg PO DAILY [facility] Last Admin: 05/16/21 09:28 Dose: 1,000 mcg Documented by: Docusate Sodium (Docusate Sodium 100 Mg Cap) 100 mg PO DAILY [facility] Last Admin: 05/16/21 09:28 Dose: 100 mg Documented by: Enoxaparin Sodium (Enoxaparin 40 Mg/0.4 Ml Syringe) 40 mg SUBCUT Q24H [facility] Last Admin: 05/16/21 09:27 Dose: 40 mg Documented by: Levothyroxine Sodium (Levothyroxine 25 Mcg Tab) 50 mcg PO ACBREAKFAST [facility] Last Admin: 05/16/21 06:38 Dose: 50 mcg Documented by: Ondansetron HCl (Ondansetron 4 Mg/2 Ml Sdv) 4 mg IVPUSH Q4H PRN PRN Reason: Nausea/Vomiting Pantoprazole Sodium (Pantoprazole 40 Mg Tab.Cr) 40 mg PO ACBREAKFAST [facility] Last Admin: 05/16/21 06:38 Dose: 40 mg Documented by: Quetiapine Fumarate (Quetiapine 25 Mg Tab) 50 mg PO BEDTIME [facility] Last Admin: 05/15/21 20:59 Dose: 50 mg Documented by: Discontinued Medications Bisacodyl (Bisacodyl 10 Mg Supp) 10 mg RECTAL ONETIME ONE Stop: 05/13/21 14:16 Last Admin: 05/13/21 14:44 Dose: 10 mg Documented by: Ceftriaxone Sodium (Ceftriaxone 1 Gm Vial) 2 gm IVPUSH ONETIME ONE Stop: 05/10/21 17:09 Last Admin: 05/10/21 17:53 Dose: 2 gm Documented by: Dexamethasone (Dexamethasone 4 Mg/Ml Sdv) 6 mg IVPUSH DAILY [facility] Last Admin: 05/12/21 10:36 Dose: Not Given Documented by: Dexamethasone (Dexamethasone 10 Mg/Ml Sdv) 10 mg IVPUSH Q6H [facility] Last Admin: 05/13/21 06:22 Dose: 10 mg Documented by: Diphenhydramine HCl (Diphenhydramine 50 Mg/Ml Sdv) 50 mg IVPUSH ONETIME ONE Stop: 05/10/21 20:03 Last Admin: 05/10/21 20:11 Dose: 50 mg Documented by: Diphenhydramine HCl (Diphenhydramine 50 Mg/Ml Sdv) 50 mg IVPUSH ONETIME ONE Stop: 05/11/21 20:27 Last Admin: 05/11/21 21:59 Dose: 50 mg Documented by: Diphenhydramine HCl (Diphenhydramine 50 Mg/Ml Sdv) 50 mg IVPUSH Q6H PRN PRN Reason: Agitation Last Admin: 05/12/21 17:11 Dose: 50 mg Documented by: Haloperidol Lactate (Haloperidol Lactate 5 Mg/Ml Sdv) 5 mg IM ONETIME ONE Stop: 05/10/21 20:02 Last Admin: 05/10/21 20:12 Dose: 5 mg Documented by: Haloperidol Lactate (Haloperidol Lactate 5 Mg/Ml Sdv) 5 mg IM ONETIME ONE Stop: 05/11/21 20:25 Last Admin: 05/11/21 21:58 Dose: 5 mg Documented by: Heparin Sodium (Porcine) (Heparin Sodium 5,000 Units/Ml Vial) 5,000 units SUBCUT Q8H [facility] Last Admin: 05/11/21 11:56 Dose: Not Given Documented by: Sodium Chloride (Normal Saline) 1,000 mls @ 999 mls/hr IV .BOLUS ONE Stop: 05/10/21 14:51 Last Admin: 05/10/21 14:33 Dose: 999 mls/hr Documented by: Ampicillin Sodium 2 gm/ Sodium (Chloride) 100 mls @ 200 mls/hr IV Q6H [facility] Last Admin: 05/10/21 19:17 Dose: Not Given Documented by: Vancomycin HCl 2 gm/ Premix 400 mls @ 200 mls/hr IV STAT ONE Stop: 05/10/21 19:07 Last Admin: 05/10/21 19:32 Dose: 200 mls/hr Documented by: Sodium Chloride (Normal Saline) 1,000 mls @ 999 mls/hr IV .BOLUS ONE Stop: 05/10/21 18:14 Last Admin: 05/10/21 17:49 Dose: 999 mls/hr Documented by: Lactated Ringer's (Ringers, Lactated) 1,000 mls @ 150 mls/hr IV ASDIRECTED [facility] Last Admin: 05/13/21 11:54 Dose: 150 mls/hr Documented by: Pantoprazole Sodium 40 mg/ (Sodium Chloride) 10 mls @ 200 mls/hr IV DAILY [facility] Last Admin: 05/13/21 09:39 Dose: 200 mls/hr Documented by: Ceftriaxone Sodium 2 gm/ (Sodium Chloride) 50 mls @ 100 mls/hr IV Q24H [facility] Ampicillin Sodium 2 gm/ Sodium (Chloride) 100 mls @ 200 mls/hr IV Q4H [facility] Last Admin: 05/13/21 06:29 Dose: 200 mls/hr Documented by: Vancomycin HCl 1.25 gm/ Sodium (Chloride) 250 mls @ 166.667 mls/hr IV Q12H [facility] Last Admin: 05/12/21 22:02 Dose: Not Given Documented by: Lactated Ringer's (Ringers, Lactated) 1,000 mls @ 999 mls/hr IV .BOLUS ONE Stop: 05/11/21 00:05 Last Admin: 05/11/21 00:15 Dose: 999 mls/hr Documented by: Acyclovir 750 mg/ Sodium (Chloride) 265 mls @ 250 mls/hr IV Q8H [facility] Stop: 05/11/21 09:00 Last Admin: 05/11/21 11:09 Dose: 250 mls/hr Documented by: Ceftriaxone Sodium/Dextrose (Rocephin In Dextrose,Iso-Osm 2 Gm/50 Ml) 2 gm in 50 mls @ 100 mls/hr IV Q12H [facility] Last Admin: 05/13/21 10:57 Dose: Not Given Documented by: Acyclovir 750 mg/ Sodium (Chloride) 265 mls @ 265 mls/hr IV Q8H [facility] Last Admin: 05/13/21 10:55 Dose: Not Given Documented by: Magnesium Sulfate 2 gm/ Premix 50 mls @ 12.5 mls/hr IV ONETIME ONE Stop: 05/11/21 14:15 Last Admin: 05/11/21 12:33 Dose: 12.5 mls/hr Documented by: Vancomycin HCl 1.5 gm/ Premix 300 mls @ 200 mls/hr IV Q12H [facility] Last Admin: 05/13/21 10:55 Dose: Not Given Documented by: Sterile Water (Sterile Water For Injection) Confirm Administered Dose 20 mls @ as directed .ROUTE .STK-MED ONE Stop: 05/12/21 23:57 Last Admin: 05/13/21 12:56 Dose: Not Given Documented by: Lidocaine HCl (Lidocaine 1% 5 Ml Sdv) 5 ml INJECT ONETIME ONE Stop: 05/10/21 14:51 Last Admin: 05/10/21 17:45 Dose: Not Given Documented by: Lorazepam (Lorazepam 2 Mg/Ml Sdv) 2 mg IVPUSH ONETIME ONE Stop: 05/10/21 20:01 Last Admin: 05/10/21 20:11 Dose: 2 mg Documented by: Lorazepam (Lorazepam 2 Mg/Ml Sdv) 2 mg IVPUSH ONETIME ONE Stop: 05/11/21 20:26 Last Admin: 05/11/21 21:59 Dose: 2 mg Documented by: Lorazepam (Lorazepam 2 Mg/Ml Sdv) 2 mg IVPUSH Q6H PRN PRN Reason: Agitation Last Admin: 05/12/21 22:46 Dose: 2 mg Documented by: Olanzapine (Olanzapine 10 Mg Vial) 5 mg IM ONETIME ONE Stop: 05/12/21 23:33 Last Admin: 05/13/21 00:05 Dose: 5 mg Documented by: Pantoprazole Sodium (Pantoprazole 40 Mg Vial) 40 mg IV DAILY [facility] Pantoprazole Sodium (Pantoprazole 40 Mg Vial) 40 mg IVPUSH DAILY [facility] Vancomycin HCl (Pharmacy To Dose - Vancomycin) 1 dose .XX ASDIRECTED [facility] Stop: 05/11/21 18:46 - Exam Quality Assessment: Supplemental Oxygen General: Alert, Oriented Lungs: Clear to Auscultation Cardiovascular: Regular Rate, Regular Rhythm GI/Abdominal Exam: Normal Bowel Sounds, Soft, Non-Tender Back Exam: Normal Inspection, Full Range of Motion Extremities: Normal Inspection, Normal Range of Motion Skin: Warm Neurological: Normal Tone, Strength Equal Bilateral, Reflexes Equal Bilateral, Sensation Intact. No: Normal Gait, Normal Speech - Patient Data Lab Results Last 24 hrs: Laboratory Results - last 24 hr 05/15/21 05/16/21 05/16/21 Range/Units 17:13 05:18 06:27 WBC 7.45 (4.0-11.0) K/uL RBC 3.98 L (4.50-5.90) M/uL Hgb 12.8 L (13.0-17.0) g/dL Hct 36.2 L (38.0-50.0) % MCV 91.0 (80.0-98.0) fL MCH 32.2 H (27.0-32.0) pg MCHC 35.4 (31.0-37.0) g/dL RDW Std Deviation 42.0 (28.0-62.0) fl RDW Coeff of Ananda 13 (11.0-15.0) % Plt Count 190 (150-400) K/uL MPV 11.20 (7.40-12.00) fL Neut % (Auto) 68.7 (48.0-80.0) % Lymph % (Auto) 20.9 (16.0-40.0) % Kings % (Auto) 9.1 (0.0-15.0) % Eos % (Auto) 1.3 (0.0-7.0) % Baso % (Auto) 0.0 (0.0-1.5) % Neut # (Auto) 5.1 (1.4-5.7) K/uL Lymph # (Auto) 1.6 (0.6-2.4) K/uL Kings # (Auto) 0.7 (0.0-0.8) K/uL Eos # (Auto) 0.1 (0.0-0.7) K/uL Baso # (Auto) 0.0 (0.0-0.1) K/uL Nucleated RBC % 0.0 /100WBC Nucleated RBCs # 0 K/uL POC Glucose 83 87 (70-99) mg/dL 05/16/21 Range/Units 14:38 WBC (4.0-11.0) K/uL RBC (4.50-5.90) M/uL Hgb (13.0-17.0) g/dL Hct (38.0-50.0) % MCV (80.0-98.0) fL MCH (27.0-32.0) pg MCHC (31.0-37.0) g/dL RDW Std Deviation (28.0-62.0) fl RDW Coeff of Ananda (11.0-15.0) % Plt Count (150-400) K/uL MPV (7.40-12.00) fL Neut % (Auto) (48.0-80.0) % Lymph % (Auto) (16.0-40.0) % Kings % (Auto) (0.0-15.0) % Eos % (Auto) (0.0-7.0) % Baso % (Auto) (0.0-1.5) % Neut # (Auto) (1.4-5.7) K/uL Lymph # (Auto) (0.6-2.4) K/uL Kings # (Auto) (0.0-0.8) K/uL Eos # (Auto) (0.0-0.7) K/uL Baso # (Auto) (0.0-0.1) K/uL Nucleated RBC % /100WBC Nucleated RBCs # K/uL POC Glucose 96 (70-99) mg/dL Result Diagrams: 05/16/21 05:18 05/15/21 07:20 Isacc Results Last 24 hrs: Microbiology 05/11/21 11:25 CSF Culture - Final Cerebral Spinal Fluid Gram Stain - Final Sepsis Event Note - Evaluation Sepsis Screening Result: No Definite Risk - Focused Exam Vital Signs: Vital Signs Temp Pulse Resp BP Pulse Ox 05/16/21 12:00 35.9 C L 68 20 140/78 99 05/16/21 08:27 35.9 C L 54 L 22 H 122/77 97 - Problem List & Annotations (1) Ataxia SNOMED Code(s): 85949184 Code(s): R27.0 - ATAXIA, UNSPECIFIED Status: Acute Current Visit: Yes (2) Cognitive impairment SNOMED Code(s): 729893445 Code(s): R41.89 - OTH SYMPTOMS AND SIGNS W COGNITIVE FUNCTIONS AND AWARENESS Status: Acute Current Visit: Yes (3) Dysarthria SNOMED Code(s): 1740477 Code(s): R47.1 - DYSARTHRIA AND ANARTHRIA Status: Acute Current Visit: Yes (4) Hypothyroidism SNOMED Code(s): 94693313 Code(s): E03.9 - HYPOTHYROIDISM, UNSPECIFIED Status: Acute Current Visit: Yes (5) Neurodegenerative disorder SNOMED Code(s): 112972295 Code(s): G31.9 - DEGENERATIVE DISEASE OF NERVOUS SYSTEM, UNSPECIFIED Status: Acute Current Visit: Yes (6) Altered mental status SNOMED Code(s): 680974289 Code(s): R41.82 - ALTERED MENTAL STATUS, UNSPECIFIED Status: Acute Current Visit: Yes - Problem List Review Problem List Initiated/Reviewed/Updated: Yes - Plan Plan:: 61-year-old male admitted for altered mental status and leukocytosis, both resolved Continue oral acyclovir for possible viral meningitis, based on Gram stain and prelim blood cultures no organism has been identified CT scan of the head noted cont Seroquel Continue supportive care cont lovenox for dvt ppx Monitor and replete electrolytes as necessary Continue home meds as appropriate Continue physical therapy for physical rehabilitation sister is planning for out of city rehab facility upon dc as local rehab is not taking new patients currently, SW on board, currently they are trying at a [place] facility which will decide within 24 to 36 hours of outpatient acceptance. Patient will need a speech therapy consult for dysarthria as well as to assess for swallowing dysfunction which has been ordered Soni has been removed and patient urinates without any difficulty One-on-one has been removed as well as patient is more awake and alert and following commands better Continue bed alarm Continue for precautions Dispo: Pending accepting facility for long-term care
[2021-05-16] MEDS: Acetaminophen 325 MG Tab PO PRN (17:36)
[2021-05-16] MEDS: QUEtiapine 25 MG Tab PO SCH (21:44)
[2021-05-17] MEDS: Acyclovir 200 MG Cap PO SCH ×3 (06:43→21:23)
[2021-05-17] MEDS: Levothyroxine 25 MCG Tab PO SCH (06:43)
[2021-05-17] MEDS: Pantoprazole 40 MG Tab.CR PO SCH (06:43)
[2021-05-17] MEDS: Enoxaparin 40 MG/0.4 ML Syringe SUBCUT SCH (08:58)
[2021-05-17] MEDS: Cyanocobalamin (Vitamin B12) 500 MCG Tab PO SCH (08:58)
[2021-05-17] MEDS: Docusate Sodium 100 MG Cap PO SCH (08:59)
--- NOTE | 2021-05-17 13:30 | PCM.PN ---
- General Info Date of Service: 05/17/21 - Review of Systems Systems Review Comment:: no complaints - Patient Data Vitals - Most Recent: Last Vital Signs Temp 36.2 C 05/17/21 08:00 Pulse 64 05/17/21 08:00 Resp 16 05/17/21 08:00 BP 138/87 05/17/21 08:00 Pulse Ox 98 05/17/21 08:00 Weight - Most Recent: 77.467 kg I&O - Last 24 Hours: Intake & Output 05/16/21 05/17/21 05/17/21 22:59 06:59 14:59 Intake Total 1440 350 Output Total 1525 825 Balance -85 -475 Lab Results Last 24 Hours: Laboratory Results - last 24 hr 05/16/21 05/16/21 05/17/21 Range/Units 14:38 19:35 05:52 WBC 8.20 (4.0-11.0) K/uL RBC 4.12 L (4.50-5.90) M/uL Hgb 13.2 (13.0-17.0) g/dL Hct 38.2 (38.0-50.0) % MCV 92.7 (80.0-98.0) fL MCH 32.0 (27.0-32.0) pg MCHC 34.6 (31.0-37.0) g/dL RDW Std Deviation 42.8 (28.0-62.0) fl RDW Coeff of Ananda 13 (11.0-15.0) % Plt Count 171 (150-400) K/uL MPV 11.00 (7.40-12.00) fL Neut % (Auto) 69.9 (48.0-80.0) % Lymph % (Auto) 20.1 (16.0-40.0) % Sumner % (Auto) 6.7 (0.0-15.0) % Eos % (Auto) 3.2 (0.0-7.0) % Baso % (Auto) 0.1 (0.0-1.5) % Neut # (Auto) 5.7 (1.4-5.7) K/uL Lymph # (Auto) 1.7 (0.6-2.4) K/uL Sumner # (Auto) 0.6 (0.0-0.8) K/uL Eos # (Auto) 0.3 (0.0-0.7) K/uL Baso # (Auto) 0.0 (0.0-0.1) K/uL Nucleated RBC % 0.0 /100WBC Nucleated RBCs # 0 K/uL POC Glucose 96 98 (70-99) mg/dL 05/17/21 05/17/21 Range/Units 06:45 11:45 WBC (4.0-11.0) K/uL RBC (4.50-5.90) M/uL Hgb (13.0-17.0) g/dL Hct (38.0-50.0) % MCV (80.0-98.0) fL MCH (27.0-32.0) pg MCHC (31.0-37.0) g/dL RDW Std Deviation (28.0-62.0) fl RDW Coeff of Ananda (11.0-15.0) % Plt Count (150-400) K/uL MPV (7.40-12.00) fL Neut % (Auto) (48.0-80.0) % Lymph % (Auto) (16.0-40.0) % Sumner % (Auto) (0.0-15.0) % Eos % (Auto) (0.0-7.0) % Baso % (Auto) (0.0-1.5) % Neut # (Auto) (1.4-5.7) K/uL Lymph # (Auto) (0.6-2.4) K/uL Sumner # (Auto) (0.0-0.8) K/uL Eos # (Auto) (0.0-0.7) K/uL Baso # (Auto) (0.0-0.1) K/uL Nucleated RBC % /100WBC Nucleated RBCs # K/uL POC Glucose 87 103 H (70-99) mg/dL Med Orders - Current: Current Medications Acetaminophen (Acetaminophen 325 Mg Tab) 650 mg PO Q4H PRN PRN Reason: Pain Last Admin: 05/16/21 17:36 Dose: 650 mg Documented by: Acyclovir (Acyclovir 200 Mg Cap) 800 mg PO TID DEANNA Last Admin: 05/17/21 06:43 Dose: 800 mg Documented by: Albuterol/Ipratropium (Albuterol/Ipratropium 3.0-0.5 Mg/3 Ml Neb Soln) 3 ml NEB Q4HRRT PRN PRN Reason: Shortness Of Breath/wheezing Bisacodyl (Bisacodyl 10 Mg Supp) 10 mg RECTAL DAILY PRN PRN Reason: Constipation Cyanocobalamin (Cyanocobalamin (Vitamin B12) 500 Mcg Tab) 1,000 mcg PO DAILY [facility] Last Admin: 05/17/21 08:58 Dose: 1,000 mcg Documented by: Docusate Sodium (Docusate Sodium 100 Mg Cap) 100 mg PO DAILY [facility] Last Admin: 05/17/21 08:59 Dose: Not Given Documented by: Enoxaparin Sodium (Enoxaparin 40 Mg/0.4 Ml Syringe) 40 mg SUBCUT Q24H [facility] Last Admin: 05/17/21 08:58 Dose: 40 mg Documented by: Levothyroxine Sodium (Levothyroxine 25 Mcg Tab) 50 mcg PO ACBREAKFAST [facility] Last Admin: 05/17/21 06:43 Dose: 50 mcg Documented by: Ondansetron HCl (Ondansetron 4 Mg/2 Ml Sdv) 4 mg IVPUSH Q4H PRN PRN Reason: Nausea/Vomiting Pantoprazole Sodium (Pantoprazole 40 Mg Tab.Cr) 40 mg PO ACBREAKFAST [facility] Last Admin: 05/17/21 06:43 Dose: 40 mg Documented by: Quetiapine Fumarate (Quetiapine 25 Mg Tab) 50 mg PO BEDTIME [facility] Last Admin: 05/16/21 21:44 Dose: 50 mg Documented by: Discontinued Medications Bisacodyl (Bisacodyl 10 Mg Supp) 10 mg RECTAL ONETIME ONE Stop: 05/13/21 14:16 Last Admin: 05/13/21 14:44 Dose: 10 mg Documented by: Ceftriaxone Sodium (Ceftriaxone 1 Gm Vial) 2 gm IVPUSH ONETIME ONE Stop: 05/10/21 17:09 Last Admin: 05/10/21 17:53 Dose: 2 gm Documented by: Dexamethasone (Dexamethasone 4 Mg/Ml Sdv) 6 mg IVPUSH DAILY [facility] Last Admin: 05/12/21 10:36 Dose: Not Given Documented by: Dexamethasone (Dexamethasone 10 Mg/Ml Sdv) 10 mg IVPUSH Q6H [facility] Last Admin: 05/13/21 06:22 Dose: 10 mg Documented by: Diphenhydramine HCl (Diphenhydramine 50 Mg/Ml Sdv) 50 mg IVPUSH ONETIME ONE Stop: 05/10/21 20:03 Last Admin: 05/10/21 20:11 Dose: 50 mg Documented by: Diphenhydramine HCl (Diphenhydramine 50 Mg/Ml Sdv) 50 mg IVPUSH ONETIME ONE Stop: 05/11/21 20:27 Last Admin: 05/11/21 21:59 Dose: 50 mg Documented by: Diphenhydramine HCl (Diphenhydramine 50 Mg/Ml Sdv) 50 mg IVPUSH Q6H PRN PRN Reason: Agitation Last Admin: 05/12/21 17:11 Dose: 50 mg Documented by: Haloperidol Lactate (Haloperidol Lactate 5 Mg/Ml Sdv) 5 mg IM ONETIME ONE Stop: 05/10/21 20:02 Last Admin: 05/10/21 20:12 Dose: 5 mg Documented by: Haloperidol Lactate (Haloperidol Lactate 5 Mg/Ml Sdv) 5 mg IM ONETIME ONE Stop: 05/11/21 20:25 Last Admin: 05/11/21 21:58 Dose: 5 mg Documented by: Heparin Sodium (Porcine) (Heparin Sodium 5,000 Units/Ml Vial) 5,000 units SUBCUT Q8H [facility] Last Admin: 05/11/21 11:56 Dose: Not Given Documented by: Sodium Chloride (Normal Saline) 1,000 mls @ 999 mls/hr IV .BOLUS ONE Stop: 05/10/21 14:51 Last Admin: 05/10/21 14:33 Dose: 999 mls/hr Documented by: Ampicillin Sodium 2 gm/ Sodium (Chloride) 100 mls @ 200 mls/hr IV Q6H DEANNA Last Admin: 05/10/21 19:17 Dose: Not Given Documented by: Vancomycin HCl 2 gm/ Premix 400 mls @ 200 mls/hr IV STAT ONE Stop: 05/10/21 19:07 Last Admin: 05/10/21 19:32 Dose: 200 mls/hr Documented by: Sodium Chloride (Normal Saline) 1,000 mls @ 999 mls/hr IV .BOLUS ONE Stop: 05/10/21 18:14 Last Admin: 05/10/21 17:49 Dose: 999 mls/hr Documented by: Lactated Ringer's (Ringers, Lactated) 1,000 mls @ 150 mls/hr IV ASDIRECTED [facility] Last Admin: 05/13/21 11:54 Dose: 150 mls/hr Documented by: Pantoprazole Sodium 40 mg/ (Sodium Chloride) 10 mls @ 200 mls/hr IV DAILY [facility] Last Admin: 05/13/21 09:39 Dose: 200 mls/hr Documented by: Ceftriaxone Sodium 2 gm/ (Sodium Chloride) 50 mls @ 100 mls/hr IV Q24H [facility] Ampicillin Sodium 2 gm/ Sodium (Chloride) 100 mls @ 200 mls/hr IV Q4H [facility] Last Admin: 05/13/21 06:29 Dose: 200 mls/hr Documented by: Vancomycin HCl 1.25 gm/ Sodium (Chloride) 250 mls @ 166.667 mls/hr IV Q12H [facility] Last Admin: 05/12/21 22:02 Dose: Not Given Documented by: Lactated Ringer's (Ringers, Lactated) 1,000 mls @ 999 mls/hr IV .BOLUS ONE Stop: 05/11/21 00:05 Last Admin: 05/11/21 00:15 Dose: 999 mls/hr Documented by: Acyclovir 750 mg/ Sodium (Chloride) 265 mls @ 250 mls/hr IV Q8H [facility] Stop: 05/11/21 09:00 Last Admin: 05/11/21 11:09 Dose: 250 mls/hr Documented by: Ceftriaxone Sodium/Dextrose (Rocephin In Dextrose,Iso-Osm 2 Gm/50 Ml) 2 gm in 50 mls @ 100 mls/hr IV Q12H [facility] Last Admin: 05/13/21 10:57 Dose: Not Given Documented by: Acyclovir 750 mg/ Sodium (Chloride) 265 mls @ 265 mls/hr IV Q8H [facility] Last Admin: 05/13/21 10:55 Dose: Not Given Documented by: Magnesium Sulfate 2 gm/ Premix 50 mls @ 12.5 mls/hr IV ONETIME ONE Stop: 05/11/21 14:15 Last Admin: 05/11/21 12:33 Dose: 12.5 mls/hr Documented by: Vancomycin HCl 1.5 gm/ Premix 300 mls @ 200 mls/hr IV Q12H [facility] Last Admin: 05/13/21 10:55 Dose: Not Given Documented by: Sterile Water (Sterile Water For Injection) Confirm Administered Dose 20 mls @ as directed .ROUTE .STK-MED ONE Stop: 05/12/21 23:57 Last Admin: 05/13/21 12:56 Dose: Not Given Documented by: Lidocaine HCl (Lidocaine 1% 5 Ml Sdv) 5 ml INJECT ONETIME ONE Stop: 05/10/21 14:51 Last Admin: 05/10/21 17:45 Dose: Not Given Documented by: Lorazepam (Lorazepam 2 Mg/Ml Sdv) 2 mg IVPUSH ONETIME ONE Stop: 05/10/21 20:01 Last Admin: 05/10/21 20:11 Dose: 2 mg Documented by: Lorazepam (Lorazepam 2 Mg/Ml Sdv) 2 mg IVPUSH ONETIME ONE Stop: 05/11/21 20:26 Last Admin: 05/11/21 21:59 Dose: 2 mg Documented by: Lorazepam (Lorazepam 2 Mg/Ml Sdv) 2 mg IVPUSH Q6H PRN PRN Reason: Agitation Last Admin: 05/12/21 22:46 Dose: 2 mg Documented by: Olanzapine (Olanzapine 10 Mg Vial) 5 mg IM ONETIME ONE Stop: 05/12/21 23:33 Last Admin: 05/13/21 00:05 Dose: 5 mg Documented by: Pantoprazole Sodium (Pantoprazole 40 Mg Vial) 40 mg IV DAILY [facility] Pantoprazole Sodium (Pantoprazole 40 Mg Vial) 40 mg IVPUSH DAILY [facility] Vancomycin HCl (Pharmacy To Dose - Vancomycin) 1 dose .XX ASDIRECTED [facility] Stop: 05/11/21 18:46 - Exam General: Alert, Oriented Lungs: Clear to Auscultation, Normal Respiratory Effort Cardiovascular: Regular Rate, Regular Rhythm GI/Abdominal Exam: Soft, Non-Tender, No Distention Extremities: Non-Tender, No Pedal Edema Skin: Warm, Dry, Intact Neurological: No New Focal Deficit - Patient Data Lab Results Last 24 hrs: Laboratory Results - last 24 hr 05/16/21 05/16/21 05/17/21 Range/Units 14:38 19:35 05:52 WBC 8.20 (4.0-11.0) K/uL RBC 4.12 L (4.50-5.90) M/uL Hgb 13.2 (13.0-17.0) g/dL Hct 38.2 (38.0-50.0) % MCV 92.7 (80.0-98.0) fL MCH 32.0 (27.0-32.0) pg MCHC 34.6 (31.0-37.0) g/dL RDW Std Deviation 42.8 (28.0-62.0) fl RDW Coeff of Ananda 13 (11.0-15.0) % Plt Count 171 (150-400) K/uL MPV 11.00 (7.40-12.00) fL Neut % (Auto) 69.9 (48.0-80.0) % Lymph % (Auto) 20.1 (16.0-40.0) % Sumner % (Auto) 6.7 (0.0-15.0) % Eos % (Auto) 3.2 (0.0-7.0) % Baso % (Auto) 0.1 (0.0-1.5) % Neut # (Auto) 5.7 (1.4-5.7) K/uL Lymph # (Auto) 1.7 (0.6-2.4) K/uL Sumner # (Auto) 0.6 (0.0-0.8) K/uL Eos # (Auto) 0.3 (0.0-0.7) K/uL Baso # (Auto) 0.0 (0.0-0.1) K/uL Nucleated RBC % 0.0 /100WBC Nucleated RBCs # 0 K/uL POC Glucose 96 98 (70-99) mg/dL 05/17/21 05/17/21 Range/Units 06:45 11:45 WBC (4.0-11.0) K/uL RBC (4.50-5.90) M/uL Hgb (13.0-17.0) g/dL Hct (38.0-50.0) % MCV (80.0-98.0) fL MCH (27.0-32.0) pg MCHC (31.0-37.0) g/dL RDW Std Deviation (28.0-62.0) fl RDW Coeff of Ananda (11.0-15.0) % Plt Count (150-400) K/uL MPV (7.40-12.00) fL Neut % (Auto) (48.0-80.0) % Lymph % (Auto) (16.0-40.0) % Sumner % (Auto) (0.0-15.0) % Eos % (Auto) (0.0-7.0) % Baso % (Auto) (0.0-1.5) % Neut # (Auto) (1.4-5.7) K/uL Lymph # (Auto) (0.6-2.4) K/uL Sumner # (Auto) (0.0-0.8) K/uL Eos # (Auto) (0.0-0.7) K/uL Baso # (Auto) (0.0-0.1) K/uL Nucleated RBC % /100WBC Nucleated RBCs # K/uL POC Glucose 87 103 H (70-99) mg/dL Result Diagrams: 05/17/21 05:52 05/15/21 07:20 Sepsis Event Note - Evaluation Sepsis Screening Result: No Definite Risk - Focused Exam Vital Signs: Vital Signs Temp Pulse Resp BP Pulse Ox 05/17/21 08:00 36.2 C 64 16 138/87 98 05/17/21 04:00 36.3 C 64 16 113/72 95 - Problem List Review Problem List Initiated/Reviewed/Updated: Yes - My Orders Last 24 Hours: My Active Orders 05/18/21 05:11 BASIC METABOLIC PANEL,BMP [CHEM] AM CBC WITH AUTO DIFF [HEME] AM - Plan Plan:: 61-year-old male admitted for altered mental status and leukocytosis, both resolved Continue oral acyclovir for possible viral meningitis, cont Seroquel Continue supportive care cont lovenox for dvt ppx Dispo: Pending accepting facility for long-term care
--- NOTE | 2021-05-17 18:21 | PCM.DCSUM1 ---
Discharge Summary - Discharge Data Discharge Date: 05/18/21 Discharge Disposition: DC/Tfer to SNF 03 Condition: Stable - Referral to Home Health Primary Care Physician: Ann Gilman MD - Patient Summary/Data Consults: Consultations 05/14/21 09:07 Consult to Physical Therapy [PT Evaluation and Treatment] [CONS] Routine 05/14/21 12:57 Consult to Speech Language Pathology [ELECTRONIC COURT RECORDER Evaluation and Treatment] [CONS] Routine Hospital Course: 61 yo male with past medical history of progressive supranuclear palsy and dementia who presented after being found down at his house. He was found to have worsening ataxia and decreased level of alertness. Laboratory work up was significant for a WBC of 17,000. CT scan of chest, abdomen, pelvis, spine and head was negative for acute pathology. Patient was treated empirically for meningitis with vancomycin and ampicillin. When LP was obtained it was suggestive of more of a viral meningitis so patient was placed on acyclovir. Patient's mentation improved but he still had poor mobility. His daughter that live with him stated that she would not be able to assist him in his needs if he can't walk. [facility] [place] [facility] the patient. Patient has received 5 days of acyclovir and the plan is to continue for an addition five days. - Patient Instructions Diet: Mechanical Soft - Discharge Plan *PRESCRIPTION DRUG MONITORING PROGRAM REVIEWED*: Not Applicable *COPY OF PRESCRIPTION DRUG MONITORING REPORT IN PATIENT FRANKIE: Not Applicable Prescriptions/Med Rec: Acyclovir 800 mg PO Q8H #15 tablet Pantoprazole [ProTONIX] 40 mg PO ACBREAKFAST #30 tab.cr QUEtiapine Fumarate [Seroquel] 50 mg PO BEDTIME #30 tablet Home Medications: Home Meds Cholecalciferol (Vitamin D3) [Vitamin D3] 400 unit PO DAILY 01/19/20 [History] Cyanocobalamin (Vitamin B12) [Vitamin B12] 1,000 mcg PO DAILY 01/19/20 [History] Levothyroxine Sodium [Synthroid] 50 mcg PO DAILY 01/19/20 [History] Acyclovir 800 mg PO Q8H #15 tablet 05/17/21 [Rx] Pantoprazole [ProTONIX] 40 mg PO ACBREAKFAST #30 tab.cr 05/17/21 [Rx] QUEtiapine Fumarate [Seroquel] 50 mg PO BEDTIME #30 tablet 05/17/21 [Rx] Patient Handouts: Quetiapine tablets, Pantoprazole tablets, Acyclovir tablets or capsules Referrals: Ann Gilman MD [Primary Care Provider] - 05/30/21 9:00 am - Discharge Summary/Plan Comment DC Time >30 min.: No - Patient Data Vitals - Most Recent: Last Vital Signs Temp 36.7 C 05/17/21 16:00 Pulse 77 05/17/21 16:00 Resp 16 05/17/21 16:00 BP 158/96 H 05/17/21 16:00 Pulse Ox 99 05/17/21 16:00 Weight - Most Recent: 77.467 kg I&O - Last 24 hours: Intake & Output 05/17/21 05/17/21 05/17/21 06:59 14:59 22:59 Intake Total 350 1363 Output Total 825 1900 Balance -475 537 Lab Results - Last 24 hrs: Laboratory Results - last 24 hr 05/16/21 05/17/21 05/17/21 Range/Units 19:35 05:52 06:45 WBC 8.20 (4.0-11.0) K/uL RBC 4.12 L (4.50-5.90) M/uL Hgb 13.2 (13.0-17.0) g/dL Hct 38.2 (38.0-50.0) % MCV 92.7 (80.0-98.0) fL MCH 32.0 (27.0-32.0) pg MCHC 34.6 (31.0-37.0) g/dL RDW Std Deviation 42.8 (28.0-62.0) fl RDW Coeff of Ananda 13 (11.0-15.0) % Plt Count 171 (150-400) K/uL MPV 11.00 (7.40-12.00) fL Neut % (Auto) 69.9 (48.0-80.0) % Lymph % (Auto) 20.1 (16.0-40.0) % Mccormick % (Auto) 6.7 (0.0-15.0) % Eos % (Auto) 3.2 (0.0-7.0) % Baso % (Auto) 0.1 (0.0-1.5) % Neut # (Auto) 5.7 (1.4-5.7) K/uL Lymph # (Auto) 1.7 (0.6-2.4) K/uL Mccormick # (Auto) 0.6 (0.0-0.8) K/uL Eos # (Auto) 0.3 (0.0-0.7) K/uL Baso # (Auto) 0.0 (0.0-0.1) K/uL Nucleated RBC % 0.0 /100WBC Nucleated RBCs # 0 K/uL POC Glucose 98 87 (70-99) mg/dL SARS-CoV-2 RNA (MICHELLE) (NEGATIVE) 05/17/21 05/17/21 05/17/21 Range/Units 11:45 14:35 17:11 WBC (4.0-11.0) K/uL RBC (4.50-5.90) M/uL Hgb (13.0-17.0) g/dL Hct (38.0-50.0) % MCV (80.0-98.0) fL MCH (27.0-32.0) pg MCHC (31.0-37.0) g/dL RDW Std Deviation (28.0-62.0) fl RDW Coeff of Ananda (11.0-15.0) % Plt Count (150-400) K/uL MPV (7.40-12.00) fL Neut % (Auto) (48.0-80.0) % Lymph % (Auto) (16.0-40.0) % Mccormick % (Auto) (0.0-15.0) % Eos % (Auto) (0.0-7.0) % Baso % (Auto) (0.0-1.5) % Neut # (Auto) (1.4-5.7) K/uL Lymph # (Auto) (0.6-2.4) K/uL Mccormick # (Auto) (0.0-0.8) K/uL Eos # (Auto) (0.0-0.7) K/uL Baso # (Auto) (0.0-0.1) K/uL Nucleated RBC % /100WBC Nucleated RBCs # K/uL POC Glucose 103 H 90 (70-99) mg/dL SARS-CoV-2 RNA (MICHELLE) NEGATIVE (NEGATIVE) Med Orders - Current: Current Medications Acetaminophen (Acetaminophen 325 Mg Tab) 650 mg PO Q4H PRN PRN Reason: Pain Last Admin: 05/16/21 17:36 Dose: 650 mg Documented by: Acyclovir (Acyclovir 200 Mg Cap) 800 mg PO TID [facility] Last Admin: 05/17/21 13:37 Dose: 800 mg Documented by: Albuterol/Ipratropium (Albuterol/Ipratropium 3.0-0.5 Mg/3 Ml Neb Soln) 3 ml NEB Q4HRRT PRN PRN Reason: Shortness Of Breath/wheezing Bisacodyl (Bisacodyl 10 Mg Supp) 10 mg RECTAL DAILY PRN PRN Reason: Constipation Cyanocobalamin (Cyanocobalamin (Vitamin B12) 500 Mcg Tab) 1,000 mcg PO DAILY [facility] Last Admin: 05/17/21 08:58 Dose: 1,000 mcg Documented by: Docusate Sodium (Docusate Sodium 100 Mg Cap) 100 mg PO DAILY [facility] Last Admin: 05/17/21 08:59 Dose: Not Given Documented by: Enoxaparin Sodium (Enoxaparin 40 Mg/0.4 Ml Syringe) 40 mg SUBCUT Q24H [facility] Last Admin: 05/17/21 08:58 Dose: 40 mg Documented by: Levothyroxine Sodium (Levothyroxine 25 Mcg Tab) 50 mcg PO ACBREAKFAST [facility] Last Admin: 05/17/21 06:43 Dose: 50 mcg Documented by: Ondansetron HCl (Ondansetron 4 Mg/2 Ml Sdv) 4 mg IVPUSH Q4H PRN PRN Reason: Nausea/Vomiting Pantoprazole Sodium (Pantoprazole 40 Mg Tab.Cr) 40 mg PO ACBREAKFAST [facility] Last Admin: 05/17/21 06:43 Dose: 40 mg Documented by: Quetiapine Fumarate (Quetiapine 25 Mg Tab) 50 mg PO BEDTIME [facility] Last Admin: 05/16/21 21:44 Dose: 50 mg Documented by: Discontinued Medications Bisacodyl (Bisacodyl 10 Mg Supp) 10 mg RECTAL ONETIME ONE Stop: 05/13/21 14:16 Last Admin: 05/13/21 14:44 Dose: 10 mg Documented by: Ceftriaxone Sodium (Ceftriaxone 1 Gm Vial) 2 gm IVPUSH ONETIME ONE Stop: 05/10/21 17:09 Last Admin: 05/10/21 17:53 Dose: 2 gm Documented by: Dexamethasone (Dexamethasone 4 Mg/Ml Sdv) 6 mg IVPUSH DAILY [facility] Last Admin: 05/12/21 10:36 Dose: Not Given Documented by: Dexamethasone (Dexamethasone 10 Mg/Ml Sdv) 10 mg IVPUSH Q6H [facility] Last Admin: 05/13/21 06:22 Dose: 10 mg Documented by: Diphenhydramine HCl (Diphenhydramine 50 Mg/Ml Sdv) 50 mg IVPUSH ONETIME ONE Stop: 05/10/21 20:03 Last Admin: 05/10/21 20:11 Dose: 50 mg Documented by: Diphenhydramine HCl (Diphenhydramine 50 Mg/Ml Sdv) 50 mg IVPUSH ONETIME ONE Stop: 05/11/21 20:27 Last Admin: 05/11/21 21:59 Dose: 50 mg Documented by: Diphenhydramine HCl (Diphenhydramine 50 Mg/Ml Sdv) 50 mg IVPUSH Q6H PRN PRN Reason: Agitation Last Admin: 05/12/21 17:11 Dose: 50 mg Documented by: Haloperidol Lactate (Haloperidol Lactate 5 Mg/Ml Sdv) 5 mg IM ONETIME ONE Stop: 05/10/21 20:02 Last Admin: 05/10/21 20:12 Dose: 5 mg Documented by: Haloperidol Lactate (Haloperidol Lactate 5 Mg/Ml Sdv) 5 mg IM ONETIME ONE Stop: 05/11/21 20:25 Last Admin: 05/11/21 21:58 Dose: 5 mg Documented by: Heparin Sodium (Porcine) (Heparin Sodium 5,000 Units/Ml Vial) 5,000 units SUBCUT Q8H [facility] Last Admin: 05/11/21 11:56 Dose: Not Given Documented by: Sodium Chloride (Normal Saline) 1,000 mls @ 999 mls/hr IV .BOLUS ONE Stop: 05/10/21 14:51 Last Admin: 05/10/21 14:33 Dose: 999 mls/hr Documented by: Ampicillin Sodium 2 gm/ Sodium (Chloride) 100 mls @ 200 mls/hr IV Q6H [facility] Last Admin: 05/10/21 19:17 Dose: Not Given Documented by: Vancomycin HCl 2 gm/ Premix 400 mls @ 200 mls/hr IV STAT ONE Stop: 05/10/21 19:07 Last Admin: 05/10/21 19:32 Dose: 200 mls/hr Documented by: Sodium Chloride (Normal Saline) 1,000 mls @ 999 mls/hr IV .BOLUS ONE Stop: 05/10/21 18:14 Last Admin: 05/10/21 17:49 Dose: 999 mls/hr Documented by: Lactated Ringer's (Ringers, Lactated) 1,000 mls @ 150 mls/hr IV ASDIRECTED [facility] Last Admin: 05/13/21 11:54 Dose: 150 mls/hr Documented by: Pantoprazole Sodium 40 mg/ (Sodium Chloride) 10 mls @ 200 mls/hr IV DAILY [facility] Last Admin: 05/13/21 09:39 Dose: 200 mls/hr Documented by: Ceftriaxone Sodium 2 gm/ (Sodium Chloride) 50 mls @ 100 mls/hr IV Q24H [facility] Ampicillin Sodium 2 gm/ Sodium (Chloride) 100 mls @ 200 mls/hr IV Q4H [facility] Last Admin: 05/13/21 06:29 Dose: 200 mls/hr Documented by: Vancomycin HCl 1.25 gm/ Sodium (Chloride) 250 mls @ 166.667 mls/hr IV Q12H [facility], [facility]–1983 Last Admin: 05/12/21 22:02 Dose: Not Given Documented by: Lactated Ringer's (Ringers, Lactated) 1,000 mls @ 999 mls/hr IV .BOLUS ONE Stop: 05/11/21 00:05 Last Admin: 05/11/21 00:15 Dose: 999 mls/hr Documented by: Acyclovir 750 mg/ Sodium (Chloride) 265 mls @ 250 mls/hr IV Q8H [facility], [facility]–1983 Stop: 05/11/21 09:00 Last Admin: 05/11/21 11:09 Dose: 250 mls/hr Documented by: Ceftriaxone Sodium/Dextrose (Rocephin In Dextrose,Iso-Osm 2 Gm/50 Ml) 2 gm in 50 mls @ 100 mls/hr IV Q12H [facility], 1928–1983 Last Admin: 05/13/21 10:57 Dose: Not Given Documented by: Acyclovir 750 mg/ Sodium (Chloride) 265 mls @ 265 mls/hr IV Q8H [facility], [facility]1983 Last Admin: 05/13/21 10:55 Dose: Not Given Documented by: Magnesium Sulfate 2 gm/ Premix 50 mls @ 12.5 mls/hr IV ONETIME ONE Stop: 05/11/21 14:15 Last Admin: 05/11/21 12:33 Dose: 12.5 mls/hr Documented by: Vancomycin HCl 1.5 gm/ Premix 300 mls @ 200 mls/hr IV Q12H [facility]1983 Last Admin: 05/13/21 10:55 Dose: Not Given Documented by: Sterile Water (Sterile Water For Injection) Confirm Administered Dose 20 mls @ as directed .ROUTE .STK-MED ONE Stop: 05/12/21 23:57 Last Admin: 05/13/21 12:56 Dose: Not Given Documented by: Lidocaine HCl (Lidocaine 1% 5 Ml Sdv) 5 ml INJECT ONETIME ONE Stop: 05/10/21 14:51 Last Admin: 05/10/21 17:45 Dose: Not Given Documented by: Lorazepam (Lorazepam 2 Mg/Ml Sdv) 2 mg IVPUSH ONETIME ONE Stop: 05/10/21 20:01 Last Admin: 05/10/21 20:11 Dose: 2 mg Documented by: Lorazepam (Lorazepam 2 Mg/Ml Sdv) 2 mg IVPUSH ONETIME ONE Stop: 05/11/21 20:26 Last Admin: 05/11/21 21:59 Dose: 2 mg Documented by: Lorazepam (Lorazepam 2 Mg/Ml Sdv) 2 mg IVPUSH Q6H PRN PRN Reason: Agitation Last Admin: 05/12/21 22:46 Dose: 2 mg Documented by: Olanzapine (Olanzapine 10 Mg Vial) 5 mg IM ONETIME ONE Stop: 05/12/21 23:33 Last Admin: 05/13/21 00:05 Dose: 5 mg Documented by: Pantoprazole Sodium (Pantoprazole 40 Mg Vial) 40 mg IV DAILY [facility], 1928–1983 Pantoprazole Sodium (Pantoprazole 40 Mg Vial) 40 mg IVPUSH DAILY [facility], [facility]–1983 Vancomycin HCl (Pharmacy To Dose - Vancomycin) 1 dose .XX ASDIRECTED [facility], 1928–1983 Stop: 05/11/21 18:46 Discharge Operative/Procedures - Procedures Performed LP Indication: CSF analysis, suspected meningitis
[2021-05-17] MEDS: QUEtiapine 25 MG Tab PO SCH (21:23)
[2021-05-18 04:47] VITALS: BP 110/61; PULSE 83
[2021-05-18] MEDS: Acyclovir 200 MG Cap PO SCH (05:29)
[2021-05-18] MEDS: Levothyroxine 25 MCG Tab PO SCH (05:30)
[2021-05-18] MEDS: Pantoprazole 40 MG Tab.CR PO SCH (05:31)
== END 2021-05-18 05:40 | DRG 76 ==
LOC: MW.ED 12:06 → MW.MS 16:35
PROVIDERS: ADMIT Student in an Organized Health Care Education/Training Program; ATTEND Student in an Organized Health Care Education/Training Program
PROC: 009U3ZX Drainage of Spinal Canal, Percutaneous Approach, Diagnostic (ICD-10-PCS; principal; 2021-05-11)
DX: R41.82 Altered mental status, unspecified (principal); A87.9 Viral meningitis, unspecified; G83.89 Other specified paralytic syndromes; E03.9 Hypothyroidism, unspecified; Z79.890 Hormone replacement therapy; Z79.899 Other long term (current) drug therapy; Z20.822 Contact with and (suspected) exposure to COVID-19; H54.7 Unspecified visual loss; F41.9 Anxiety disorder, unspecified; E53.8 Deficiency of other specified B group vitamins; F03.90 Unspecified dementia, unspecified severity, without behavioral disturbance, psychotic disturbance, mood disturbance, and anxiety; Z98.890 Other specified postprocedural states; Z87.891 Personal history of nicotine dependence; R27.0 Ataxia, unspecified; R47.1 Dysarthria and anarthria; R41.89 Other symptoms and signs involving cognitive functions and awareness; G31.9 Degenerative disease of nervous system, unspecified
CPT/HCPCS: 36415; 62270; 70450; 71250; 72125; 74176; 80053; 80305; 80307; 81001 ×2; 82140; 82550; 83735; 84100; 84443; 85025; 85610; 87635; 93005; 99285; J7030; 80048; 80202; 82945; 82947; 83605; 83615; 84157; 87070; 87205; 89050; 92523-GN; 97110-GP; 97163-GP; 99284; A9270-GY; C9113; J0133; J0290; J0696; J1100; J1200; J1630; J1644; J1650; J2060; J3370; J3475; J3490; J7050; J7120; U0002